=== PATIENT | female | born 1970 | race Caucasian/White ===

== ENCOUNTER 2023-05-19 15:21 | Emergency (ER) | payer OTHER, SELFPAY ==
--- NOTE | 2023-05-19 15:31 | ED.EYEPROB ---
HPI - Eye Problem General Chief complaint: Urogenital-Female Stated complaint: ear/bladder pain Source: patient, RN notes reviewed and old records reviewed Mode of arrival: ambulatory Limitations: no limitations History of Present Illness HPI Narrative: 52 year old female who presesnt Related Data Home Medications Medication Instructions Recorded Confirmed atorvastatin 80 mg tablet mg 05/19/23 dulaglutide 1.5 mg/0.5 mL mg subcut 05/19/23 subcutaneous pen injector (Trulicity) empagliflozin 25 mg tablet mg 05/19/23 05/19/23 (Jardiance) isosorbide mononitrate 120 mg mg PO 05/19/23 tablet,extended release 24 hr losartan 25 mg tablet mg 05/19/23 metoprolol succinate 50 mg mg PO 05/19/23 tablet,extended release 24 hr oxybutynin chloride 10 mg mg PO 05/19/23 tablet,extended release 24 hr ranolazine 500 mg tablet,extended mg PO 05/19/23 05/19/23 release,12 hr ticagrelor 90 mg tablet (Brilinta) mg 05/19/23 Allergies Allergy/AdvReac Type Severity Reaction Status Date / Time bee venom protein (honey bee) Allergy Intermediate Rash Verified 05/19/23 15:29 Penicillins Allergy Unknown Rash Verified 05/19/23 15:29 all diabetic meds AdvReac Intermediate Other Uncoded 05/19/23 15:29 Review of Systems Review of Systems: CONSTITUTIONAL: Denies fever, chills, or sweats. CARDIOVASCULAR: Denies chest pain, palpitations, or edema. RESPIRATORY: Denies cough or dyspnea. GASTROINTESTINAL: Denies abdominal pain, nausea, vomiting, or diarrhea. GENITOURINARY: Reports dysuria, frequency, urgency. Denies flank pain or hematuria. SKIN: Denies rash or itching. MUSCULOSKELETAL: Denies back pain or myalgia. Denies CVA tenderness NEUROLOGIC: Denies headache All systems reviewed & are unremarkable except as noted in HPI and below PMFSH Comments At time of signature, agree with nursing past medical, surgical, social and family history. There is no relevant family history pertinent to the presenting complaint Exam Narrative: GENERAL: Well-appearing, well-nourished, and in no acute distress. HEAD: Normocephalic, atraumatic. NECK: Supple. CHEST: Clear to auscultation. No respiratory distress. HEART: Regular rate and rhythm. No murmur heard. Normal peripheral pulses. ABDOMEN: Soft, nontender, nondistended, normal active bowel sounds. No CVA tenderness EXTREMITIES: Normal range of motion. No edema. SKIN: Warm, dry, no rash. NEURO: No focal deficits. Alert and oriented x3. Course Course Emergency Course: Patient is aware of diagnosis, understands and agrees to treatment plan.? Anticipatory guidance given.? Patient agrees to follow-up as directed and is aware of reasons to seek care at the emergency department. Portions of this record may have been created with voice recognition software Level of Care: Express Care Visit MDM - Eye Problem Lab Data Attestation: I reviewed the patient's lab results. Discharge Plan Discharge Prescriptions: No Action atorvastatin 80 mg tablet oxybutynin chloride 10 mg tablet extended release 24hr PO metoprolol succinate 50 mg tablet extended release 24 hr PO isosorbide mononitrate 120 mg tablet extended release 24 hr PO losartan 25 mg tablet ranolazine 500 mg tablet extended release 12 hr PO Brilinta 90 mg tablet Trulicity 1.5 mg/0.5 mL pen injector SUBCUT Follow-up/Referrals: PHYSICIAN NOT ON STAFF,NONSTAFF [Primary Care Provider] -
[2023-05-19 15:33] VITALS: BP 146/87; PULSE 81; RESP 16; TEMP 36.8; O2SAT 97
--- NOTE | 2023-05-19 15:43 | PC.NURSE ---
in br to obtain ua spec.
--- NOTE | 2023-05-19 15:56 | ED.FEMALEGU ---
HPI - Female Genitourinary General Chief complaint: Urogenital-Female Stated complaint: ear/bladder pain Time Seen by Provider: 05/19/23 15:40 Source: patient, RN notes reviewed and old records reviewed Mode of arrival: ambulatory Limitations: no limitations History of Present Illness HPI Narrative: 52 year old female who presents to [facility] care with complaints of 2 week duration of some right ear pain with some bloody drainage noted from ear at times. Patient also verbalizes lower back pain and some lower abdominal cramping, urinary frequency with some odor noted to her urine. Patient reports past history of previous UTI's. Patient denies any fever, no nausea or vomiting or diarrhea denies any vaginal discharge or itching. MD elicited complaint: UTI and other (right ear pain) Pertinent past history: diabetes and other (UTI's) Onset (ago): week(s) (2 weeks ear and 2 days urinary tract symptoms) Location of symptoms: suprapubic and low back Severity scale (1-10): 6 Vaginal discharge: none Treatment prior to arrival: other (tylenol) Related Data Home Medications Medication Instructions Recorded Confirmed atorvastatin 80 mg tablet mg 05/19/23 dulaglutide 1.5 mg/0.5 mL mg subcut 05/19/23 subcutaneous pen injector (Trulicity) empagliflozin 25 mg tablet mg 05/19/23 05/19/23 (Jardiance) isosorbide mononitrate 120 mg mg PO 05/19/23 tablet,extended release 24 hr losartan 25 mg tablet mg 05/19/23 metoprolol succinate 50 mg mg PO 05/19/23 tablet,extended release 24 hr oxybutynin chloride 10 mg mg PO 05/19/23 tablet,extended release 24 hr ranolazine 500 mg tablet,extended mg PO 05/19/23 05/19/23 release,12 hr ticagrelor 90 mg tablet (Brilinta) mg 05/19/23 Allergies Allergy/AdvReac Type Severity Reaction Status Date / Time bee venom protein (honey bee) Allergy Intermediate Rash Verified 05/19/23 15:29 Penicillins Allergy Unknown Rash Verified 05/19/23 15:29 all diabetic meds AdvReac Intermediate Other Uncoded 05/19/23 15:29 Review of Systems Review of Systems: CONSTITUTIONAL: Denies fever, chills, or sweats. CARDIOVASCULAR: Denies chest pain, palpitations, or edema. RESPIRATORY: Denies cough or dyspnea.positive for right ear pain with some bloody drainage GASTROINTESTINAL: REports lower abdominal cramping, no nausea, vomiting, or diarrhea. GENITOURINARY: Reports dysuria, frequency, urgency. Denies flank pain or hematuria. reports low back pain SKIN: Denies rash or itching. MUSCULOSKELETAL: Reports low back pain or myalgia. Denies CVA tenderness NEUROLOGIC: Denies headache All systems reviewed & are unremarkable except as noted in HPI and below PMFSH Past Medical History Medical History (Updated 05/20/23 @ 12:16 by Bhakti Lora NP) Arthritis Brain cancer Breast cancer Diabetes Elevated cholesterol Hypertension Urinary tract infection Surgical History Surgical History (Updated 05/20/23 @ 12:17 by Bhakti Lora NP) H/O: hysterectomy Social History Social History (Updated 05/20/23 @ 12:17 by Bhakti Lora NP) Smoking status: Never smoker Alcohol intake: current Alcohol use details: rare Substance use type: does not use Living arrangements: with family Gender identity (if verbalized by the patient): Female Comments At time of signature, agree with nursing past medical, surgical, social and family history. There is no relevant family history pertinent to the presenting complaint Exam Narrative: GENERAL: Well-appearing, well-nourished, and in no acute distress. HEAD: Normocephalic, atraumatic. NECK: Supple.no lymphadenopathy right ear canal red and excoriated with dried blood noted.TM normal CHEST: Clear to auscultation. No respiratory distress.SAO2 97% on room air HEART: Regular rate and rhythm. No murmur heard. Normal peripheral pulses. ABDOMEN: Soft, tender lower abdomen,, nondistended, normal active bowel sounds. No CVA tenderness low back pain v
== END 2023-05-19 16:09 | disposition home or self-care (01) ==
PROVIDERS: Emergency Provider Registered Nurse
DX: N39.0 Urinary tract infection, site not specified (principal); B96.20 Unspecified Escherichia coli [E. coli] as the cause of diseases classified elsewhere; H60.391 Other infective otitis externa, right ear; M19.90 Unspecified osteoarthritis, unspecified site; E11.9 Type 2 diabetes mellitus without complications; I10 Essential (primary) hypertension; Z85.3 Personal history of malignant neoplasm of breast; Z85.841 Personal history of malignant neoplasm of brain
CPT/HCPCS: 81003; 87077; 87086; 87186; 99203; G0463

== ENCOUNTER 2024-03-29 11:57 | Emergency (ER) | payer OTHER, SELFPAY ==
--- NOTE | ~2024-03-29 | XR_ITS ---
EXAMINATION: XR chest 2V DATE: 03/29/2024 13:10 INDICATION: Cough and fatigue TECHNIQUE: PA and lateral views of the chest were obtained. COMPARISON: None FINDINGS: The lungs are clear with no focal airspace opacities, pulmonary edema, pleural effusion or pneumothor ax. The cardiomediastinal silhouette is normal. Cholecystectomy clips in the upper abdomen. There are bridging osteophytes at multiple levels consistent with diffuse idiopathic skeletal hyperostosis (DI SH). IMPRESSION: 1. No acute cardiopulmonary disease. Reviewed, dictated and finalized at location B. TECHNICIAN
[2024-03-29 12:03] VITALS: BP 141/90; PULSE 80; RESP 16; TEMP 36.9; O2SAT 98
--- NOTE | 2024-03-29 12:55 | ED_ITS ---
HPI - URI/Sore Throat General Chief Complaint: Upper Respiratory Infection Stated Complaint: Fatigue/Cough/Sore Throat/Chest Tightness Source: patient Mode of arrival: ambulatory Limitations: no limitations History of Present Illness HPI Narrative: 53-year-old female presented for complaint of cough, fatigue, and shortness of breath for 3 days. His cough is dry and chest feels tight. She denies wheezing, nausea, vomiting, diarrhea, fevers or lethargy. Taking [id number] cough medicine without relief. Related Data Home Medications ?Medication ?Instructions ?Recorded ?Confirmed ?Last Taken ?Type atorvastatin 80 mg tablet mg 05/19/23 Unknown History dulaglutide 1.5 mg/0.5 mL mg subcut 05/19/23 Unknown History subcutaneous pen injector (Trulicity) empagliflozin 25 mg tablet mg 05/19/23 05/19/23 Unknown History (Jardiance) isosorbide mononitrate 120 mg mg PO 05/19/23 Unknown History tablet,extended release 24 hr losartan 25 mg tablet mg 05/19/23 Unknown History metoprolol succinate 50 mg mg PO 05/19/23 Unknown History tablet,extended release 24 hr oxybutynin chloride 10 mg mg PO 05/19/23 Unknown History tablet,extended release 24 hr ranolazine 500 mg tablet,extended mg PO 05/19/23 05/19/23 Unknown History release,12 hr ticagrelor 90 mg tablet (Brilinta) mg 05/19/23 Unknown History Allergies Allergy/AdvReac Type Severity Reaction Status Date / Time bee venom protein (honey bee) Allergy Intermediate Rash Verified 05/19/23 15:29 Penicillins Allergy Unknown Rash Verified 05/19/23 15:29 all diabetic meds AdvReac Intermediate Other Uncoded 05/19/23 15:29 Review of Systems Review of Systems: CONSTITUTIONAL: Denies body aches, fever, chills, or sweats. EYES: Denies visual changes, redness, or discharge. ENT: Denies rhinorrhea, congestion, sore throat, or otalgia. CARDIOVASCULAR: Denies chest pain, palpitations, or edema. RESPIRATORY: Reports cough, denies sob, wheezing. GASTROINTESTINAL: Denies abdominal pain, nausea, vomiting, or diarrhea. MUSCULOSKELETAL: Denies back pain, joint pain, or myalgia. NEUROLOGIC: Denies headache, numbness, tingling, or weakness. All systems reviewed & are unremarkable except as noted in HPI and below PMFSH Past Medical History Medical History Diabetes Arthritis Breast cancer Brain cancer Elevated cholesterol Hypertension Urinary tract infection Surgical History Surgical History H/O: hysterectomy Social History Social History Smoking status: Never smoker Alcohol intake: current Alcohol use details: rare Substance use type: does not use Living arrangements: with family Gender identity (if verbalized by the patient): Female Comments At time of signature, I have reviewed and agree with nursing past medical, surgical, social and family history unless otherwise noted. Please see nursing chart for further information. There is no relevant family history pertinent to the presenting complaint Exam Narrative: GENERAL: Well-appearing, in no acute distress. EYES: EOMI. No redness or drainage. Conjunctivae normal. ENT: Mucous membranes pink and moist. No rhinorrhea. TMs normal bilaterally. Throat normal. Uvula midline. NECK: Normal AROM. Supple. CHEST: No respiratory distress. lungs clear to all milton. HEART: Regular rate and rhythm. No murmur appreciated. ABDOMEN: Soft, nontender, nondistended, normal active bowel sounds. EXTREMITIES: Normal range of motion. No edema. SKIN: Warm, dry, no rash. Capillary refill normal. Normal skin turgor. NEURO: Alert and oriented x3. Gait steady. PSYCH: Normal affect. Course Course Emergency Course: Patient is aware of diagnosis, understands and agrees to treatment plan. Anticipatory guidance given. Patient agrees to follow-up as directed and is aware of reasons to seek care at the emergency department. Portions of this record may have been created with voice recognition software Level of Care: Express Care Visit Vital Signs Vital signs: Vital Signs Temperature 98.5 F 03/29/24 12:03 Pulse Rate 80 03/29/24 12:03 Respiratory Rate 16 03/29/24 12:03 Blood Pressure 141/90 H 03/29/24 12:03 Pulse Oximetry 98 03/29/24 12:03 Oxygen Delivery Room Air 03/29/24 12:03 Temperature 98.5 F 03/29/24 12:03 Pulse Rate 80 03/29/24 12:03 Respiratory Rate 16 03/29/24 12:03 Blood Pressure 141/90 H 03/29/24 12:03 Pulse Oximetry 98 03/29/24 12:03 Oxygen Delivery Room Air 03/29/24 12:03 MDM - URI/Sore Throat MDM Narrative Medical decision making narrative: Negative flu and COVID, chest x-ray reviewed with patient. Discussed physical exam findings. Advised supportive measures and signs/symptoms to go to the ER. Pt is appropriate for outpt treatment and f/u. Differential Diagnosis Differential diagnosis: Likely upper respiratory infection, sinusitis, viral infection, influenza and pharyngitis Lab Data Labs: Lab Results 03/29/24 Range/Units 13:01 POC Influenza A Ag Negative (Negative) POC Influenza B Ag Negative (Negative) POC SARS CoV-2 Ag Negative (Negative) Imaging Data Radiologist's impression: Patient: Brett Faustin : 1970 MR#: [id number] Age: 53 Acct:[id number] Loc: [facility] ADM Date: 03/29/24Attending Dr: Ordering Physician: Dafne Marcelo APRN Date of Service: 03/29/24 Procedure(s): XR chest 2V Accession Number(s): [id number] cc: Dafne Marcelo APRN~ EXAMINATION: XR chest 2V DATE: 03/29/2024 13:10 INDICATION: Cough and fatigue TECHNIQUE: PA and lateral views of the chest were obtained. COMPARISON: None FINDINGS: The lungs are clear with no focal airspace opacities, pulmonary edema, pleural effusion or pneumothorax. The cardiomediastinal silhouette is normal. Cholecyst ectomy clips in the upper abdomen. There are bridging osteophytes at multiple levels consistent with diffuse idiopathic skeletal hyperostosis (DISH). IMPRESSION: 1. No acute cardiopulmonary disease. Discharge Plan Discharge Clinical Impression: Bronchitis Patient Disposition: Home, Self-Care Condition: Stable Instructions: Acute Bronchitis (ED) Additional Instructions: flu and COVID negative. Acute bronchitis can be contagious because it is usually caused by infection with a virus or bacteria. It is usually for a few days but you can be contagious for up to one week. Avoid crowds until you do not have a fever and symptoms are improved Take medication as directed Recommend Flonase spray and Zyrtec (or Claritin/Tayla) over the counter Cough syrup may cause drowsiness; avoid driving or take it at night time. Tylenol 1000mg every 8 hours as needed for pain Symptomatic treatment includes: rest, fluids, and increase humidity of the air at home. Follow up with your primary care provider next week Go to the ER for worsening symptoms or concerns Patient Language: Armenian Prescriptions: New prednisone 20 mg tablet 40 mg PO DAILY 4 Days Qty: 8 0RF albuterol sulfate 90 mcg/actuation HFA aerosol inhaler 2 inh inhalation QID PRN (Reason: shortness of breath or wheezing) Qty: 8.5 0RF No Action atorvastatin 80 mg tablet oxybutynin chloride 10 mg tablet extended release 24hr PO metoprolol succinate 50 mg tablet extended release 24 hr PO isosorbide mononitrate 120 mg tablet extended release 24 hr PO losartan 25 mg tablet ranolazine 500 mg tablet extended release 12 hr PO Brilinta 90 mg tablet Trulicity 1.5 mg/0.5 mL pen injector SUBCUT Jardiance 25 mg tablet Patient Comments: stated is not currently taking dt unable to afford cost. ofloxacin 0.3 % drops 5 drp RIGHT EAR BID 7 Days Qty: 10 0RF Follow-up/Referrals: PHYSICIAN NOT ON STAFF,NONSTAFF [Primary Care Provider] - Stand Alone Forms: Work/School Release IP Time of Disposition: 13:23
[2024-03-29 13:03] LABS: EDCOVIDSCREEN Negative (Negative); EDINFLUASCREEN Negative (Negative); EDINFLUBSCREEN Negative (Negative)
== END 2024-03-29 13:29 | disposition home or self-care (01) ==
PROVIDERS: Emergency Provider Nurse Practitioner Family
DX: J40 Bronchitis, not specified as acute or chronic (principal); Z20.822 Contact with and (suspected) exposure to COVID-19; E11.9 Type 2 diabetes mellitus without complications; I10 Essential (primary) hypertension; E78.00 Pure hypercholesterolemia, unspecified; M19.90 Unspecified osteoarthritis, unspecified site; Z85.3 Personal history of malignant neoplasm of breast; Z85.841 Personal history of malignant neoplasm of brain
CPT/HCPCS: 71046; 87426; 87804; 99213; G0463

== ENCOUNTER 2024-10-09 14:31 | Emergency (ER) | payer OTHER, SELFPAY ==
[2024-10-09 14:33] VITALS: BP 149/94; PULSE 82; RESP 18; TEMP 36.8; O2SAT 97
--- OUTSIDE RECORDS SUMMARY | 2024-10-09 14:38 | XMS_ITS | Referral Summary ---
Author Organization [facility] Address [address] [place] [address] Care Team Providers Care Non Destructive Testing Specialist Name Role Phone Melo Das DO Unavailable [phone] Spencer Cabrera MD Primary Care Provider + Allergies Active Allergy Reactions Criticality Noted Date Comments Bee Venom Protein (Honey Bee) Anaphylaxis High Glipizide-Metformin Nausea & Vomiting Low 8 Insulin Regular Other (See comments) Low 07/02/2015 Synthetic insulin. Throwing up and light headed. Synthetic insulin. Throwing up and light headed. Insulins Other (See comments) High hyperglycemia Enoxaparin Itching Low 03/05/2021 Metformin Nausea & Vomiting Low 11/10/2017 Procaine Anaphylaxis,Other (S ee comments) High 05/03/2009 Cardiac arrest stop breathing and turn blue Medications aspirin 81 mg chewable tablet TAKE ONE TABLET BY MOUTH AT BREAKFAST 0 8 Active empagliflozin (JARDIANCE) 25 mg tabletIndication s:type 2 diabetes mellitus 1 tablet (25 mg total) daily Active gus root (GUS, ZINGIBER OFFICINALIS,) 550 mg capsule Take by mouth 2 (two) times a day Active dulaglutide (TRULICITY) 1.5 mg/0.5 mL pen injector Inject 0.5 mL (1.5 mg total) under the skin every 7 days Monday Active vitamin B biha-J-EF-copper -zinc 5-1.5-25 mg tablet Take 1 tablet by mouth daily Active cyanocobalamin (Vitamin B-12) 1,000 mcg tabletIndication s:Prevention of Vitamin B12 Deficiency Take 1 tablet (1,000 mcg total) by mouth daily Active HYDROcodone-acet aminophen (NORCO) 5-325 mg per tabletIndication s:Pain Take 1 tablet by mouth every 6 (six) hours as needed for pain for up to 5 doses 5 tablet 2 Active oxyBUTYnin XL (DITROPAN-XL) 10 mg 24 hr tablet Take 1 tablet (10 mg total) by mouth daily Active atorvastatin (LIPITOR) 80 mg tabletIndication s:myocardial infarction prevention Take 1 tablet (80 mg total) by mouth nightly 30 tablet 11 3 Active metoprolol XL (TOPROL-XL) 50 mg extended release tablet Take 1 tablet (50 mg total) by mouth daily 30 tablet 11 3 Active ticagrelor (BRILINTA) 90 mg tabletIndication s:cardiovascular disease Take 1 tablet (90 mg total) by mouth 2 (two) times a day 180 tablet 1 3 Active isosorbide mononitrate ER (IMDUR) 60 mg 24 hr tablet Take 1 tablet (60 mg total) by mouth daily 30 tablet 1 3 Active amLODIPine (NORVASC) 2.5 mg tablet Take 1 tablet (2.5 mg total) by mouth daily 30 tablet 1 3 Active clobetasoL (TEMOVATE) 0.05 % cream Apply topically 2 (two) times a day To leg 60 g 1 4 Active gabapentin (NEURONTIN) 300 mg capsule Take 1 capsule (300 mg total) by mouth 3 (three) times a day 5 Active progesterone (PROMETRIUM) 100 mg capsule Take 1 capsule (100 mg total) by mouth daily 5 Active Active Problems Problem Noted Date Diagnosed Date Chest pain, unspecified type 12/21/2022 CAD (coronary artery disease) 11/24/2022 Obesity (BMI 30-39.9) 03/05/2021 Chest pain 03/04/2021 Assessment & Plan (03/05/2021 12:42 AM MORTGAGE LOAN OFFICER ORIGINATOR): Exact etiology unclear. Appears to be exertional but also seems to be worsened with deep breathing with a certain amount of reproducibility with palpation. Cardiology is following. Stress test was negative. Echo showed normal EF. Will consider CT of the chest if cardiac workup is negative. Exhaustion 03/02/2021 Assessment & Plan (03/02/2021 1:02 PM MORTGAGE LOAN OFFICER ORIGINATOR): Patient's exhaustion is difficult at this point to identify a clear etiology to. With her known history of significant atherosclerotic disease and prior LV dysfunction I plan to further investigate this with echocardiography and Cardiolite treadmill stress testing. We will also obtain proBNP value. We will see her in follow-up to discuss those results and establish any alteration to her current care at that time. Preop cardiovascular exam 01/02/2020 Overview (01/02/2020): Should the patient require any urological procedure, surgery or the need for general anesthesia she should be at no increased cardiovascular risk. Hematuria 12/29/2019 Glucosuria 12/29/2019 Acute bilateral low back pain without sciatica 0 12/29/2019 Mixed hyperlipidemia 05/17/2019 Assessment & Plan (01/02/2020 9:02 AM CDT): Patient's lipids were under good control with an LDL in the 60s however I would continue to encourage weight loss to help with her metabolic syndrome. Stroke (cerebrum) 04/17/2019 Coronary artery disease invo lving [place] coronary artery of [place] heart without angina pectoris 06/14/2018 Overview (06/15/2018): Added automatically from request for surgery [id number] Assessment & Plan (03/05/2021 12:39 AM MORTGAGE LOAN OFFICER ORIGINATOR): Continue aspirin, statin, Imdur and Arb. Type 2 diabetes mellitus wit h hyperglycemia, without long-term current use of insulin 06/13/2018 Assessment & Plan (03/05/2021 12:39 AM MORTGAGE LOAN OFFICER ORIGINATOR): Patient reportedly allergic to insulin. She is on Jardiance at home which has been resumed. Patient is also on Trulicity weekly which is non formulary. She states she does not adhere to a diabetic diet at home. Sugars are controlled. Assessment & Plan (06/16/2018 5:34 PM CDT): Dx>10 years ago. Her HbA1C (01/2018) was 7.9%, and this month (06/2018) 10.8%. She is not on any oral antidiabetic medication or insulin at home, as she states she develops abdominal pain and nausea from all of them She denies history of recurrent UTIs BG while hospitalized: 250-350 mg/dl. No DKA. Patient does not want to start on insulin despite that insulin is out first recommendation. In this scenario, we recommend starting on SGLT-2 inh, that will work on her as well in regards of her diastolic CHF. Side effects as UTI was discussed w the patient. Recommendation: - Jardiance (empaglifozin) 10 mg qd. - Fup w PCP, as jardiance dose can be titrate up. - HbA1c in 3 months. Assessment & Plan (06/17/2018 9:10 AM CDT): Patient reports allergic reaction (nausea/vomiting, headache, sensation of skin crawling) to short-acting and long-acting insulin, as well as some oral antihyperglycemics. Last A1c greater than 10%. Patient states diabetes previously well controlled for many years with diet and exercise alone. Talking to her yesterday, uncertain whether she actually saw an library serials assistant regarding this. Diabetes endo team to talk to her today, low suspicion she has true insulin allergy. - Endocrine consulted, patient unwilling to try insulin. Empagliflozin started and tolerated well. Will discharge on empagliflozin with plans for PCP follow up and repeat HbA1c in 3 months. - low carb diet Assessment & Plan (06/13/2018 3:43 AM CDT): On will ED workup patient noted to have severely elevated blood sugars. Patient states that her blood sugars are well controlled with diet and exercise . She claims that had been checking her blood sugars 3 times a day which were running around 130-140 range Today Hemoglobin A1c more than 10. Patient received 1 dose of her subcutaneous insulin, states that developed severe itching and nausea, states that vomited as well. Patient currently refusing insulin. She states that in the past did not do well with any oral hypoglycemics as well and refusing oral hypoglycemics. is at bedside and states that according to glucometer readings at home her blood sugars in the id are ranging around 130-140 range. I had lengthy discussion regarding the will use of hemoglobin A1c, explained that it is reflecting an average volume over the last 3 months. Which in her case corresponding to the daily blood sugars around 350 range. I also explained complications associated with longstanding hyperglycemia include DKA, coma, , increased risk for cardiac events, strokes, CKD, retinopathy, etc I asked the to bring a glucometer to the hospital for comparison with in-hospital test values. The patient and the verbalized understanding. Chronic systolic congestive heart failure 2018 Assessment & Plan (03/05/2021 12:40 AM MORTGAGE LOAN OFFICER ORIGINATOR): Echo shows normal EF with grade 1 diastolic dysfunction. Continue Entresto Assessment & Plan (06/13/2018 4:06 AM CDT): Patient with history of chronic systolic Congestive heart failure. Based on the cardiac catheterization results from 2018: CONCLUSION 1. One-vessel coronary artery disease in his right dominant system with eccentric 75% mid LAD stenosis after a very large diagonal branch. 2. No mitral regurgitation. 3. Severely diminished global LV systolic function with an ejection fraction of 25% to 30%. Currently patient clinically not fluid overloaded. Continue with carvedilol, entresto, spironolactone and Lasix. Hypertension 06/13/2018 Overview (06/13/2018): Will continue cardiac pertinent home medications. Assessment & Plan (03/05/2021 12:40 AM MORTGAGE LOAN OFFICER ORIGINATOR): Continue home medications with hold parameters Assessment & Plan (06/15/2018 2:39 AM CDT): Previous home regimen: Spironolactone 25, Coreg 25 BID, Entresto 24-26, Lasix 20 daily - management as above Assessment & Plan (06/13/2018 3:30 AM CDT): Patient received a dose of nitroglycerin. The chest pain still present. Currently on heparin drip. Continue with heparin monitoring engineer Continue cardiac pertinent home medications Status post insertion of fernando g-eluting stent into left anterior descending (LAD) artery for coronary artery disease Assessment & Plan (01/02/2020 9:01 AM CDT): Presently the patient remains free of any symptoms to suggest angina or heart failure. She has been on her Brilinta over 18 months for her LAD stent and in light of her hematuria could discontinue this but probably does not need to restart this. Assessment & Plan (06/16/2018 9:47 AM CDT): S/p EDEN x1 to mid-LAD in 11/2017 at [facility]. - continue ASA, Brilinta, Crestor - management of chest pain as above Assessment & Plan (06/13/2018 3:33 AM CDT): History of coronary artery disease status post stents in 2018. Currently on heparin drip. Continue Brilinta, carvedilol, entresto Telemetry monitoring Cardiology consult Hyperglycemia Resolved Problems Problem Noted Date Diagnosed Date Resolved Date Diastolic congestive heart failure 06/15/2018 05/17/2019 Assessment & Plan (06/16/2018 5:29 PM CDT): Jardiance (SGLT-2 inh) has shown decrease rate in CHF readmissions and hospitalization. Assessment & Plan (06/17/2018 10:06 AM CDT): CHF with recovered EF. TTE at OSH 06/13/18: LVEF 50-60% (reportedly had EF 20-30% last fall), grade I diastolic function, mild concentric LVH, no focal WMA. Euvolemic on exam. - NTproBNP on admission here negative - continue ASA, Brilinta, Crestor - continue Coreg, Entresto, amlodipine, Imdur - hold spironolactone, Lasix in setting of soft blood pressure. Given recovered EF, spironolactone no longer indicated. Pyuria 06/13/2018 06/17/2018 Overview (06/13/2018): Assessment & Plan (06/15/2018 2:40 AM CDT): OSH UA with 3+ glucose, >50 WBCs, trace leuk esterase, 1+ bacteria, 1-5 squames and 1-5 hyaline casts. Started on Zosyn for presumed cystitis. Urine culture finalized as clinically insignificant growth. Patient denies urinary symptoms, afebrile, normal WBC count. - defer further antibiotics Assessment & Plan (06/13/2018 4:08 AM CDT): Patient started on Zosyn Urine cultures are pending, will follow with culture results Chest pain 05/17/2019 Assessment & Plan (06/16/2018 9:47 AM CDT): Troponin T negative x3 at OSH, EKG without ST changes. History most consistent with stable angina. - troponin and NTproBNP negative on admission here - s/p LHC on 06/15 showing moderate disease of 2nd diagonal off LAD however IFR negative - needs risk factor modification (diabetes control to reduce microvascular complications) - continue ASA, Brilinta, Crestor - continue Entresto, amlodipine, Imdur, Coreg and up titrate as tolerated - patient unable to afford ranolazine in the past Assessment & Plan (06/13/2018 3:26 AM CDT): Patient states that the chest pain is similar to 1 when she had her cardiac stents placed. Initial troponins were negative. EKG was negative for STEMI. Patient was started on heparin drip, cardiology consulted Continue with carvedilol spironolactone, ARB. Continue with aspirin 81 mg daily Will keep the patient NPO after midnight Cardiology consult in a.m. For possible repeat cardiac catheterization. Versus cardiac stress test. Continue with nitroglycerin as needed for chest pain. Telemetry monitoring Will trend troponins Monitor kidney function with daily BMP, replete electrolytes as needed. Unstable angina 05/17/2019 Assessment & Plan (06/13/2018 3:53 AM CDT): Coronary artery disease invo lving [place] coronary artery of [place] heart 05/17/19 Social History Tobacco Use Types Packs/Day Years Used Date Smoking Tobacco: Former Cigarettes Q uit: 11/10/1987 Smokeless Tobacco: Never Alcohol Use Standard Drinks/Week Comments Not Currently 0 (1 standard drink = 0.6 oz pur e alcohol) monthly Social Connection and Isolat ion Panel [NHANES] Answer Date Recorded In a typical week, how many times do you talk on the phone with family, friends, or neighbors? More than three times a week 11/24/2022 How often do you get togethe r with friends or relatives? More than three times a week 11/24/2022 How often do you attend chur ch or jehovah's witness services? Never 11/24/2022 Do you belong to any clubs o r organizations such as rastafarian groups, unions, fraternal or athletic groups, or school groups? No 11/24/2022 How often do you attend meet ings of the clubs or organizations you belong to? Never 11/24/2022 Are you , , di vorced, , never , or living with a partner? 11/24/2022 AUDIT-C Answer Date Recorded Frequency of Alcohol Consumption Monthly or less 04/17/2019 Average Number of Drinks Not on file 020 Frequency of Binge Drinking Not on file 04/03 Overall Financial Resource Strain (CARDIA) Answe r Date Recorded How hard is it for you to pa y for the very basics like food, housing, medical care, and heating? Not hard at all 11/24/2022 PHQ-2 Answer Date Recorded PHQ-2 Score 0 11/21/2018 Hunger Vital Sign Answer Date Recorded Within the past 12 months, y ou worried that your food would run out before you got the money to buy more. Never true 11/25/19 23 Within the past 12 months, t he food you bought just didn't last and you didn't have money to get more. Never true 11/24/2022 PRAPARE - Transportation Answer Date Re corded In the past 12 months, has l ack of transportation kept you from medical appointments or from getting medications? No 11/02 In the past 12 months, has l ack of transportation kept you from meetings, work, or from getting things needed for daily living? No 11/24/2022 Housing Stability Vital Sign Answer Chong e Recorded In the last 12 months, was t here a time when you were not able to pay the mortgage or rent on time? No 11/24/2022 In the last 12 months, how many places have you lived? 1 11/24/2022 In the last 12 months, was t here a time when you did not have a steady place to sleep or slept in a senior care (including now)? No 11/24/2022 Personal Safety Answer Date Recorded Have you ever been in or are you currently in a harmful physical or emotional relationship or is someone making you feel afraid or unsafe? 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 on file Not on file Not on fi le Last Filed Vital Signs Vital Sign Reading Time Taken Comments Blood Pressure 122/60 12/22/2022 11:12 AM CDT Pulse 71 12/22/2022 11:12 AM CDT Temperature 36.4 C (97.6 F) 12/22/2022 11:12 AM CDT Respiratory Rate 18 12/22/2022 11:12 AM CDT Oxygen Saturation 98% 12/22/2022 11:12 AM CDT Inhaled Oxygen Concentration - - Weight 94.4 kg (208 lb 1.8 oz) 12/21/2022 7:16 A M CDT Height 160 cm (5' 3) 12/21/2022 7:16 AM CDT Body Mass Index 36.87 12/21/2022 7:16 AM CDT Plan of Treatment Not on file Medical Devices Implanted Type Area Fitting Room Inspector Device Identifier Shelf Expiration Date Model / Serial / Lot Closet Couture Angio-Seal Vip 6fr Closere Device [id number] - [id number] Implanted:Qty : 1 on 11/24/2022 by Ameya Swann MD at [facility] Right: Common Femoral Artery PV Nano Cell Candido [id number] / / PANTA Systemstronic Card Vasc Surgery 2.50 X 08mm [place] Rx Coronary Stent [id number] - [id number] Implanted:Qty : 1 on 11/24/2022 by Ameya Swann MD at [facility] Stent Left: Anterior Descending Cornary Artery Medtronic Card Vasc Surgery 05/03/2025 [id number] / / [id number] [employer] [id number] Xience Alpine 3.5mm 18mm 145cm Rapid Exchange Radiopaque 1 Access - [id number] Implanted:Qty : 1 on 11/10/2017 by Lauri Ball MD at [facility] [employer] 05/23/2020 [id number] Procedures Procedure Name Priority Date/Time Associated Diagnosis Comments EGFR STAT 12/21/2022 4:03 AM CDT HEMOGLOBIN A1C Routine 11/25/2022 3:19 AM CDT LIPID PANEL Routine 11/24/2022 9:39 AM CDT from Last 3 Months or Most Recently Relevant to Health Maintenance Results * eGFR (12/21/2022 4:03 AM CDT) eGFR 91 mL/min/1. 73 m2 [facility] ([place]) Comment: Interpretive Data Reference Interval Normal >/= 90 mL/min/1.73m2 Mildly decreased* 60 - 89 mL/min/1.73m2 Mildly to moderately decreased 45 - 59 mL/min/1.73m2 Moderately to severely decreased 30 - 44 mL/min/1.73m2 Severely decreased 15 - 29 mL/min/1.73m2 Kidney Failure < 15 mL/min/1.73m2 *Relative to young adult level Estimated glomerular filtration rate is determined by the 2020 CKD-EPI equation recommended by the National Kidney Foundation (A Unifying Approach to GFR Estimation: Recommendations of the NKF-ASK Task Force on Reassessing the Inclusion of Race in Diagnosing Kidney Disease, JASN 2020). The CKD-EPI equation should not be used for patients with unstable renal function and has not been validated in children and those over 70. Current interpretive data was last reviewed 2021. Blood 12/21/2022 4:03 AM CDT 12/21/2022 4:07 AM CDT Binta Santana MD LAB BLOOD ORDERABLES Fin al Result Performing Organization Address City/[facility] Co de Phone Number [facility] ([place]) [address] [facility] Department [place] [address] * Hemoglobin A1c (11/25/2022 3:19 AM CDT) Hgb A1C 5.2 4.0 - 5.6 % [facility] Estimated Average Glucose 103 mg/dL [facility] Comment: The ADA recommends reporting an estimated Average Glucose (eAG) with all Hemoglobin A1c results using the equation derived from a study of 507 normal and diabetic adults. Minority populations were underrepresented and children were not included. (Diabetes Care 31:0631-7894, 2008). The eAG is not equivalent to a fasting glucose. Blood 11/25/2022 3:19 AM CDT 11/25/2022 3:24 AM CDT Tc Landa MD LAB BLOOD ORDERABLES Final Result Performing Organization Address City/[facility] de Phone Number ALANA [id number] [facility] Department [place] [address] * Lipid panel (11/24/2022 9:39 AM CDT) Cholesterol 134 30 - 199 mg/dL [facility] Comment: Interpretive Data Ages < or = 19 years Acceptable: <170 mg/dL Borderline high: 170-199 mg/dL High: >or= 200 mg/dL Ages > or = 20 years Desirable: <200 mg/dL Borderline high: 200-239 mg/dL High: >or= 240 mg/dL Literature References: 1. Expert Panel on Integrated Guidelines for Cardiovascular Health and Risk Reduction in Children and Adolescents. Pediatrics 2011;128:S213 2. NCEP Expert Panel. Circulation 2004;110:227 Current Interpretive Data was last revised on 2017. Triglycerides 100 <=149 mg/dL [facility] Comment: Interpretive Data Ages < or = 9 years Acceptable: <75 mg/dL Borderline high: 75-99 mg/dL High: >or= 100 mg/dL Ages 10 to 20 years Acceptable: <90 mg/dL Borderline high: 90-129 mg/dL High: >or= 130 mg/dL Ages > or = 20 years Desirable: <150 mg/dL Borderline high: 150-199 mg/dL High: 200-499 mg/dL Very high: >or= 499 mg/dL Literature References: 1. Expert Panel on Integrated Guidelines for Cardiovascular Health and Risk Reduction in Children and Adolescents. Pediatrics 2011;128:S213 2. NCEP Expert Panel. Circulation 2004;110:227 Current Interpretive Data was last revised on 2017. HDL 48 >=40 mg/dL [facility] Comment: Interpretive Data Ages < or = 19 years Acceptable: >45 mg/dL Borderline low: 40-45 mg/dL Low: <40 mg/dL Ages > or = 20 years Desirable: >or= 60 mg/dL Low: <40 mg/dL Literature References: 1. Expert Panel on Integrated Guidelines for Cardiovascular Health and Risk Reduction in Children and Adolescents. Pediatrics 2011;128:S213 2. NCEP Expert Panel. Circulation 2004;110:227 Current Interpretive Data was last revised on 2017. LDL, calculated 66 <=129 mg/dL [facility] Comment: Interpretive Data Ages < or = 19 years Acceptable: <110 mg/dL Borderline high: 110-129 mg/dL High: >or= 130 mg/dL Ages > or = 20 years Optimal: <100 mg/dL Near optimal: 100-129 mg/dL Borderline high: 130-159 mg/dL High: >160 mg/dL Literature References: 1. Expert Panel on Integrated Guidelines for Cardiovascular Health and Risk Reduction in Children and Adolescents. Pediatrics 2011;128:S213 2. NCEP Expert Panel. Circulation 2004;110:227 Current Interpretive Data was last revised on 2017. Non-HDL Cholesterol 86 mg/dL [facility] Comment: Interpretive Data Ages < or = 19 years Acceptable: <120 mg/dL Borderline high: 120-144 mg/dL High: >145 mg/dL Ages > or = 20 years When triglycerides are >200 mg/dL, Non-HDL cholesterol is a secondary target of therapy with treatment goals that are 30 mg/dL greater than the LDL cholesterol target. Literature References: 1. Expert Panel on Integrated Guidelines for Cardiovascular Health and Risk Reduction in Children and Adolescents. Pediatrics 2011;128:S213 2. NCEP Expert Panel. Circulation 2004;110:227 Current Interpretive Data was last revised on 2017. Chol/HDL ratio 3 [facility] Blood 11/24/2022 9:39 AM CDT 11/24/2022 4:11 PM CDT us Ameya Swann MD LAB BLOOD ORDERABLES Final Resul t [facility] [address] Department of Laboratories [place] [phone] from Last 3 Months or Most Recently Relevant to Health Maintenance Insurance [facility] CHOICE PLUS [facility] CHO[facility] PLUS [facility] CHOICE PLUS Advance Directives For more information, please contact: [phone] * Full Code (Latest Code Status on File) Date Activated Date Inactivated Comments 12/21/2022 11:04 AM 12/22/2022 5:40 PM * Full Code Date Activated Date Inactivated Comments 11/24/2022 10:19 AM 11/26/2022 5:40 PM * Full Code Date Activated Date Inactivated Comments 11/24/2022 10:19 AM 11/24/2022 10:19 AM * Full Code Date Activated Date Inactivated Comments 03/04/2021 2:12 PM 03/06/2021 9:12 PM * Full Code Date Activated Date Inactivated Comments 04/17/2019 2:00 AM 04/19/2019 12:49 AM Care Teams Non Destructive Testing Specialist Relationship Specialty Start Date End Date Spencer Cabrera MD PCP - General Family Medicine 05/17/19 Melo Das DO Cardiovascular Disease 11/10/17
--- OUTSIDE RECORDS SUMMARY | 2024-10-09 14:38 | XMS_ITS | Encounter Summary ---
Author Organization [employer] Address [address] [place] [address] Care Team Providers Care Casualty Underwriter Name Role Phone Mack Camp DO Primary Care Provider Encounter Details Date Type Department Care Team (Late st Contact Info) Description 09/11/2000 [facility] [address] [place] [address] [phone] Thor Aceves DO NO ADDRESS ON FILE Social History Tobacco Use Types Packs/Day Years Used Date Smoking Tobacco: Never Assessed Comments Unknown Sex and Gender Information Value Date Recorded Sex Assigned at Not on file Legal Sex Female 3:54 AM 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
--- OUTSIDE RECORDS SUMMARY | 2024-10-09 14:38 | XMS_ITS | Encounter Summary ---
Author Organization [employer] Address [address] [place] [address] Care Team Providers Care Carpenter Railcar Name Role Phone Mack Camp DO Primary Care Provider Encounter Details Date Type Department Care Team (Late st Contact Info) Description 10/11/2000 [facility] [address] [place] [address] [phone] Thor Aceves DO NO ADDRESS ON FILE Social History Tobacco Use Types Packs/Day Years Used Date Smoking Tobacco: Never Assessed Comments Unknown Sex and Gender Information Value Date Recorded Sex Assigned at Not on file Legal Sex Female 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
--- OUTSIDE RECORDS SUMMARY | 2024-10-09 14:38 | XMS_ITS | Encounter Summary ---
Author Organization [employer] Address [address] [place] [address] Care Team Providers Care Clean Room Technician Name Role Phone Mack Camp DO Primary Care Provider Encounter Details Date Type Department Care Team (Late st Contact Info) Description 09/27/2000 [facility] [address] [place] [address] [phone] Thor Aceves DO NO ADDRESS ON FILE Social History Tobacco Use Types Packs/Day Years Used Date Smoking Tobacco: Never Assessed Comments Unknown Sex and Gender Information Value Date Recorded Sex Assigned at Not on file Legal Sex Female 3:54 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
--- OUTSIDE RECORDS SUMMARY | 2024-10-09 14:38 | XMS_ITS | Encounter Summary ---
Author Organization [employer] Address [address] [place] [address] Care Team Providers Care Instrument/Control Technician Name Role Phone Mack Camp DO Primary Care Provider Encounter Details Date Type Department Care Team (Late st Contact Info) Description 12/25/2000 [facility] [address] [place] [address] [phone] Thor Aceves DO NO ADDRESS ON FILE Social History Tobacco Use Types Packs/Day Years Used Date Smoking Tobacco: Never Assessed Comments Unknown Sex and Gender Information Value Date Recorded Sex Assigned at Not on file Legal Sex Female 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
--- OUTSIDE RECORDS SUMMARY | 2024-10-09 14:38 | XMS_ITS | Encounter Summary ---
Author Organization [employer] Address 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
--- OUTSIDE RECORDS SUMMARY | 2024-10-09 14:38 | XMS_ITS | Encounter Summary ---
Author Organization [employer] Address [address] [place] [address] Care Team Providers Care Filing Or Registry Clerk Name Role Phone Mack Camp DO Primary Care Provider Encounter Details Date Type Department Care Team (Late st Contact Info) Description 01/08/2001 [facility] [address] [place] [address] [phone] Thor Aceves DO NO ADDRESS ON FILE Social History Tobacco Use Types Packs/Day Years Used Date Smoking Tobacco: Never Assessed Comments Unknown Sex and Gender Information Value Date Recorded Sex Assigned at Not on file Legal Sex Female 3:54 AM SUPERVISOR 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
--- OUTSIDE RECORDS SUMMARY | 2024-10-09 14:38 | XMS_ITS | Encounter Summary ---
Author Organization [employer] Address [address] [place] [address] Care Team Providers Care Restaurant Crew Name Role Phone Mack Camp DO Primary Care Provider Encounter Details Date Type Department Care Team (Late st Contact Info) Description 03/05/2001 Outpatient [facility] Edwineast corinthswetha [facility] Medicine [address] [place] [address] [phone] Thor Aceves DO NO ADDRESS ON FILE Social History Tobacco Use Types Packs/Day Years Used Date Smoking Tobacco: Never Assessed Comments Unknown Sex and Gender Information Value Date Recorded Sex Assigned at Not on file Legal Sex Female 3:54 AM TRADE MARK 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
--- OUTSIDE RECORDS SUMMARY | 2024-10-09 14:38 | XMS_ITS | Encounter Summary ---
Author Organization [facility] Address [address] [place] [address] Care Team Providers Care Air Technician Name Role Phone Unavailable Primary Care Provider Unavailabl e Reason for Visit * Reason Onset Date Comments Surgery 11/29/2022 Encounter Details Date Type Department Care Team (Late st Contact Info) Description 11/29/2022 Telephone [facility] [id number] [id number] Paul Smith MD [address] [facility] [address] [place] [address] Surgery Social History Tobacco Use Types Packs/Day Years Used Date Smoking Tobacco: Former Cigarettes 0.5 20 0 04/21/1968 - 04/21/1988 Alcohol Use Standard Drinks/Week Comments Yes 0 (1 standard drink = 0.6 oz pur e alcohol) Once in blue rodriguez Comments No Sex and Gender Information Value Date Recorded Sex Assigned at Not on file Legal Sex Female 3:54 AM SOCIAL SERVICE DIRECTOR Gender Identity Not on file Sexual Orientation Not on file documented as of this encounter Miscellaneous Notes * Telephone Encounter - Maddy Becerra - 11/29/2022 10:26 AM CDT Yesterday Sheela from Dr. Orellana's office notified me that her nurse navigator, Monet, was notified by [facility] that the patient had a heart attack and stent placement . Berna's chart note from when patient called yesterday states that patient was told by Dr. Swann at [facility] that her surgery w/ Drs. Orellana and Luis on 12/21/22 could proceed from his standpoint and Berna had notified Brett that per Dr. Smith, the patient should discuss w/ anesthesia. Per Sheela today, Dr Orellana has advised that the patient's surgery (for brca) will need to be post-poned for 6 months. documented in this encounter Plan of Treatment Not on file documented as of this encounter Visit Diagnoses Not on filedocumented in this encounter
--- OUTSIDE RECORDS SUMMARY | 2024-10-09 14:38 | XMS_ITS | Encounter Summary ---
Author Organization [employer] Address [address] [place] [address] Care Team Providers Care Electronic Transaction Implementer Name Role Phone Mack Camp DO Primary Care Provider Encounter Details Date Type Department Care Team (Late st Contact Info) Description 01/18/[address] 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
--- OUTSIDE RECORDS SUMMARY | 2024-10-09 14:38 | XMS_ITS | Encounter Summary ---
Author Organization [employer] Address [address] [place] [address] Care Team Providers Care President Celebrity Acquistion Name Role Phone Mack Camp DO Primary Care Provider Encounter Details Date Type Department Care Team (Late st Contact Info) Description 02/01/2001 [facility]patient [facility] [address] [place] [address] [phone] Thor Aceves DO NO ADDRESS ON FILE Social History Tobacco Use Types Packs/Day Years Used Date Smoking Tobacco: Never Assessed Comments Unknown Sex and Gender Information Value Date Recorded Sex Assigned at Not on file Legal Sex Female 3:54 AM 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
--- OUTSIDE RECORDS SUMMARY | 2024-10-09 14:38 | XMS_ITS | Encounter Summary ---
Author Organization [employer] Address [address] [place] [address] Care Team Providers Care Civil Engineering Teacher Name Role Phone Mack Camp DO Primary Care Provider Encounter Details Date Type Department Care Team (Late st Contact Info) Description 08/08/2000 [facility]stony creeks[facility] [address] [place] [phone] Thor Aceves DO NO ADDRESS ON FILE Social History Tobacco Use Types Packs/Day Years Used Date Smoking Tobacco: Never Assessed Comments Unknown Sex and Gender Information Value Date Recorded Sex Assigned at Not on file Legal Sex Female 3:54 AM TOURIST ADVISER Gender Identity Not on file Sexual Orientation Not on file documented as of this encounter Plan of Treatment Not on file documented as of this encounter Visit Diagnoses Not on filedocumented in this encounter Care Teams Civil Engineering Teacher Relationship Specialty Start Date End Date Mack Camp DO [address] [place] [address] PCP - General Geriatric Medicine 07/29/16 11/27/22 documented as of this encounter
--- OUTSIDE RECORDS SUMMARY | 2024-10-09 14:38 | XMS_ITS | Encounter Summary ---
Author Organization [employer] Address [address] [place] [address] Care Team Providers Care Lime Plant Operator Name Role Phone Mack Camp DO Primary Care Provider Encounter Details Date Type Department Care Team (Late st Contact Info) Description 07/19/2000 [facility]patient [facility] Edwindanvers[facility] [address] [place] [address] [phone] Thor Aceves DO NO ADDRESS ON FILE Social History Tobacco Use Types Packs/Day Years Used Date Smoking Tobacco: Never Assessed Comments Unknown Sex and Gender Information Value Date Recorded Sex Assigned at Not on file Legal Sex Female 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
--- OUTSIDE RECORDS SUMMARY | 2024-10-09 14:38 | XMS_ITS | Encounter Summary ---
Author Organization [employer] Address [address] [place] [address] Care Team Providers Care Auto Mechanics Teacher Name Role Phone Mack Camp DO Primary Care Provider Encounter Details Date Type Department Care Team (Late st Contact Info) Description 11/21/2000 [facility] [address] [place] [address] [phone] Thor Aceves DO NO ADDRESS ON FILE Social History Tobacco Use Types Packs/Day Years Used Date Smoking Tobacco: Never Assessed Comments Unknown Sex and Gender Information Value Date Recorded Sex Assigned at Not on file Legal Sex Female 3:54 AM MICROFILM EQUIPMENT INSPECTOR Gender Identity Not on file Sexual Orientation Not on file documented as of this encounter Plan of Treatment Not on file documented as of this encounter Visit Diagnoses Not on filedocumented in this encounter Care Teams Auto Mechanics Teacher Relationship Specialty Start Date End Date Mack Camp DO [address] [place] [address] PCP - General Geriatric Medicine 07/29/16 11/27/22 documented as of this encounter
--- OUTSIDE RECORDS SUMMARY | 2024-10-09 14:38 | XMS_ITS | Encounter Summary ---
Author Organization [employer] Address [address] [place] [address] Care Team Providers Care Forest Landscape Ecology Professor Name Role Phone Mack Camp DO Primary Care Provider Encounter Details Date Type Department Care Team (Late st Contact Info) Description 10/25/[address] [facility] Ed[facility] [address] [place] [address] [phone] Thor Aceves DO NO ADDRESS ON FILE Social History Tobacco Use Types Packs/Day Years Used Date Smoking Tobacco: Never Assessed Comments Unknown Sex and Gender Information Value Date Recorded Sex Assigned at Not on file Legal Sex Female 3:54 AM NURSING SERVICES MANAGER Gender Identity Not on file Sexual Orientation Not on file documented as of this encounter Plan of Treatment Not on file documented as of this encounter Visit Diagnoses Not on filedocumented in this encounter Care Teams Forest Landscape Ecology Professor Relationship Specialty Start Date End Date Mack Camp DO [address] [place] [address] PCP - General Geriatric Medicine 07/29/16 11/27/22 documented as of this encounter
--- OUTSIDE RECORDS SUMMARY | 2024-10-09 14:39 | XMS_ITS | Clinical Summary ---
Author Organization [facility] Address [address] [place] [address] Care Team Providers Care Drafter Cartographic Name Role Phone Spencer Cabrera Primary Care Provider Unavailabl e Source Comments [facility],non-owned Affiliates and Associated Physician Practices is amultiple site organization consisting of ambulatory clinics and hospital sitesin [place], [place], [place] and [place]. This disclosure is being madepursuant to the Care Everywhere program and may not contain all information available regarding this patient. Last updated 17.[facility] Allergies Active Allergy Reactions Criticality Noted Date Comments Bee Venom 12/05/2013 stop breathing and turn blue Enoxaparin Itching Low 03/05/2021 Gabapentin Dizziness,Palpitatio ns Low 02/08/2023 Glipizide-Metformin Hcl Vomiting 03/06/2021 Insulin Other 07/02/2015 Synthetic insulin. Throwing up and light headed. Metformin Nausea and/or Vomiting Low 11/10/2017 Procaine Shortness of Breath High 12/05/2013 stop breathing and turn blue Procaine is itzel local anesthetic. Other-See Past Updates Other 05/07/2011 Diabetic medications. Throwing up and lightheaded. Prednisone Shortness of Breath High 08/01/2016 Wasp Venom Protein Shortness of Breath High 07/11/19 10 Heart stops Medications * This document contains information received from the source organization and may not represent a complete record from that organization. * Be aware that medications may not be up to date on this document. Alwaysverify current medications with the patient. amLODIPine (Norvasc) 5 MG tablet Take 1 (one) tablet by mouth once daily 03/06/20 21 Active dulaglutide (Trulicity) 1.5 MG/0.5ML injection Inject 1.5 (one and one-half) mg subcutaneously every 7 days 02/26/20 20 Active isosorbide mononitrate CR 24hr (Imdur) 120 MG tablet Take 1 (one) tablet by mouth once daily 05/17/19 22 Active Savanna, Zingiber officinalis, (Savanna Root) 550 MG Take 1 tablet by mouth as needed 03/06/20 21 Active EPINEPHrine (Epipen) 0.3 MG/0.3ML auto-injector pen as needed 10/01/19 22 Active empagliflozin (Jardiance) 25 MG tablet Take 1 (one) tablet by mouth once daily 02/21/20 20 Active Cyanocobalamin 1000 MCG Take 1 (one) tablet by mouth once daily 03/06/20 21 Active meclizine (Antivert) 25 MG tablet 1 (one) tablet 02/21/20 23 Active metoprolol succinate XL 24hr (Toprol XL) 50 MG tablet Take 1 (one) tablet by mouth once daily 30 tablet 11 11/28/19 23 Active aspirin EC (Ecotrin) 81 MG tablet Take 1 (one) tablet by mouth once daily Active atorvastatin (Lipitor) 80 MG tablet Take 1 (one) tablet by mouth at bedtime 30 tablet 11 11/27/19 23 Active Cinnamon 500 MG Take by mouth once daily Active losartan (Cozaar) 25 MG tablet 05/30/19 24 Active Multiple Vitamin (Daily Vites) TABS Take 1 (one) tablet by mouth once daily Active ofloxacin (Floxin) 0.3 % otic solution INSTILL 5 DROPS INTO RIGHT EAR TWICE DAILY FOR 7 DAYS 05/19/19 24 Active oxyBUTYnin CR 24hr (Ditropan-XL) 10 MG tablet 1 (one) tablet 02/21/20 23 Active ranolazine ER 12hr (Ranexa) 500 MG tablet Take 1 (one) tablet by mouth 2 times daily 02/08/20 23 Active ticagrelor (Brilinta) 90 MG tablet Take 1 (one) tablet by mouth 2 times daily 11/27/19 23 Active thiamine (Vitamin B-1) 100 MG tablet Take 1 (one) tablet by mouth once daily Active tamoxifen (Nolvadex) 20 MG tabletIndicatio ns:Breast pain,Family history of breast cancer Take 1 (one) tablet by mouth once daily 30 tablet 11 06/01/19 24 Active Active Problems Problem Noted Date Diagnosed Date Shoulder subluxation, right 05/30/2011 Shoulder pain 05/07/2011 Family history of breast cancer Overview (06/06/2023): Lifetime risk for developing breast cancer is predicted to be: calculated 06/01/2023 25 % with the Lynette model, (2 biopsies) 26 % with the Tyrer-Cuzick model, (version 8, scattered densities, patient BRCA negative) 24 % with the Ean model, and 11 % with the BRCAPRO model. High risk screening recommendations: 1) yearly mammograms, and 2) yearly breast MRI with contrast. Consider risk reducing tamoxifen (pre- or postmenopausal) or raloxifene (Evista) (postmenopausal) for 5 years. Hysterectomy. Started tamoxifen, 20 mg, 06/01/2023. 04/29/2022 Recommind panel genetic testing on patient: Negative. [facility] panel genetic testing after 07/2021 includes: APC, ABA, AXIN2, BAP1, BARD1, BRCA1, BRCA2, BMPR1A, BRIP1, CDH1, CDK4, CDKN2A, CHEK2, CTNNA1, EGFR, EPCAM (large rearrangement only), FH, FLCN, GREM1 (large segment rearrangement select regions), HOXB13 (sequencing only), MEN1, MET, MITF, MLH1, MSH2, MSH3, MSH6, MUTYH, NTHL1, PALB2, PMS2, POLD1 (select regions), POLE (select regions), PTEN, RAD51C, RAD51D, RET, SDHA, SDHB, SDHC, SDHD, SMAD4, STK11, TERT, TP53, TSC1, TSC2, VHL. 48 genes. Have copy. Breast pain Overview (06/01/2023): Bilateral. Initial documentation of complaints of this in medical record going back to at least 200906/01/2023 breast surgeonJae. No concerning findings on exam. Breast pain bilateral diffuse and symmetric. Better if she wears a supportive bra. Reportedly tried caffeine elimination, vitamin-E, evening [place] oil, and topical arnica without improvement. Had previously declined trial of tamoxifen, per patient Discussed option of tamoxifen in detail and patient decided to try. Also discussed that Rowe would not recommend preventative mastectomies with reconstruction if the primary motivation is for pain as reconstruction does typically have pain associated with it. Could consider preventative mastectomies in light of high risk status, without reconstruction, but patient was not open to that. Also discussed that if pain related to weight of the breast, then reductions may be of benefit, so could discuss that with plastic surgeon as well. Immunizations Immunization Administration Dates Next Due PNEUMOCOCCAL PPSV23 04/06/2013 Family History Medical History Relation Name Comments COPD - Chronic Obstructive Pulmonary Disease Father Cancer - Lung Father age 60 High Blood Pressure Father Kidney Disease Father Stroke Father Cancer - Breast Maternal Grandmother age 98; no known genetic testing Cancer - Breast Mother age 59; no known genetic testing Cancer - Stomach Mother Diabetes Mother High Blood Pressure Mother Cancer - Cervical half-sister Elizabeth living age 43 Cancer - Ovarian Neg Hx Relation Name Status Comments Father Maternal Grandfather Maternal Grandmother Mother Paternal Grandfather Paternal Grandmother half-sister Elizabeth Alive maternal 1/2 Social History Tobacco Use Types Packs/Day Years Used Date Smoking Tobacco: Former Cigarettes 0.5 2 0 04/03/1985 - 04/03/1987 Smokeless Tobacco: Never Tobacco Cessation:Counseling Given: Not Answered Alcohol Use Standard Drinks/Week Comments Yes 0 (1 standard drink = 0.6 oz pur e alcohol) 1 month Comments No Sex and Gender Information Value Date Recorded Sex Assigned at Not on file Legal Sex Female 5:56 AM SUSTAINABILITY COORDINATOR Gender Identity Not on file Sexual Orientation Not on file Last Filed Vital Signs Vital Sign Reading Time Taken Comments Blood Pressure 132/90 03/03/2022 9:59 AM SUSTAINABILITY COORDINATOR Pulse 72 03/03/2022 9:59 AM SUSTAINABILITY COORDINATOR Temperature 37.2 C (98.9 F) 03/07/2021 1:37 AM SUSTAINABILITY COORDINATOR Respiratory Rate 18 03/07/2021 1:37 AM SUSTAINABILITY COORDINATOR Oxygen Saturation 96% 03/03/2022 9:59 AM SUSTAINABILITY COORDINATOR Inhaled Oxygen Concentration - - Weight 90.7 kg (200 lb) 06/01/2023 7:35 AM SUSTAINABILITY COORDINATOR Height 160 cm (5' 3) 06/01/2023 7:35 AM SUSTAINABILITY COORDINATOR Body Mass Index 35.43 06/01/2023 7:35 AM SUSTAINABILITY COORDINATOR Plan of Treatment Health Maintenance Due Date Last Done Comments COLOGUARD (AGES 45-75) - COLON CA SCREENING 1971 COLON MONITORING 1971 COLONOSCOPY - COLON CA SCREENING 1971 CT COLONOGRAPHY - COLON CA SCREENING 1971 Colorectal Cancer Screening 1971 FIT - COLON CA SCREENING 1971 FLEX SIG - COLON CA SCREENING 1971 HIV SCREENING 08/10/1986 HEPATITIS C SCREENING 08/06/1989 DTAP/TDAP/TD VACCINES (1 - Tdap) 08/10/1990 HEPATITIS B VACCINE (1 of 3 - 19+ 3-dose series) 08/10/1990 PAP SMEAR 08/10/1992 PNEUMOCOCCAL VACCINE 50+ (2 of 2 - PCV) 08/10/2021 04/06/2013 ZOSTER VACCINE (1 of 2) 08/10/2021 COVID-19 VACCINE (1 - season) 2023 DEPRESSION SCREENING 04/03/2024 INFLUENZA VACCINE (#1) 2024 MAMMOGRAM 05/31/2025 06/01/2023, 02/0 09/2022, 05/09/2022, Additional history exists SCREENING FOR DIABETES 06/13/2026 , 06/14/2023, 12/21/2022, Additional history exists HIB VACCINE Aged Out No longer eligi ble based on patient's age to complete this topic HPV VACCINE Aged Out No longer eligi ble based on patient's age to complete this topic MENINGOCOCCAL (Group B) VACCINE SHARED DECISION-MAKING Aged Out No longer eligible based on patient's age to complete this topic MENINGOCOCCAL GROUPS A/C/Y/W VACCINE Aged Out No longer eligible based on patient's age to complete this topic Medical Devices Implanted Type Area [employer] Assistant Manager Device Identifier Shelf Expiration Date Model / Serial / Lot Percuflex 6fr X26cm Implanted:Qty: 1 on 12/06/2013 by Yuriy Badillo MD at [facility] Left: Ureter 09/01/2016 [id number] / / [id number] Procedures Procedure Name Priority Date/Time Associated Diagnosis Comments MAMMO BILAT DIAGNOSTIC W DOREEN Routine 06/01/2023 8:46 AM SUSTAINABILITY COORDINATOR Breast pain COMPREHENSIVE METABOLIC PANEL STAT 03/06/2021 6:52 PM SUSTAINABILITY COORDINATOR from Last 3 Months or Most Recently Relevant to Health Maintenance Results * MAMMO BILAT DIAGNOSTIC W DOREEN (06/01/2023 8:46 AM SUSTAINABILITY COORDINATOR) Anatomical Region Laterality Modality Breast Bilateral Mammography 06/01/2023 8:49 AM SUSTAINABILITY COORDINATOR Impressions 06/01/2023 8:52 AM SUSTAINABILITY COORDINATOR : No mammographic evidence of malignancy. BI-RADS Category 1: Negative Examination. Recommendation: Continue annual or high risk screening regimen based on specialist's protocol. > Interpreting Provider: Jason Walters MD on 06/01/2023 8:52 AM Narrative 06/01/2023 8:52 AM SUSTAINABILITY COORDINATOR Bilateral mammography. Most recent comparison: [facility] 2022 & prior History: Nonfocal bilateral breast pain. Technique: Bilateral Breasts. Mammography views included: CC and MLO. Images interpreted with CAD. Following current [facility] protocol, 3D mammographic tomosynthesis images were obtained and reviewed on a dedicated viewing station. FINDINGS: Breast composition: Scattered areas of fibroglandular density. No suspicious microcalcifications, masses or areas of architectural distortion. Current ACR guidance does not recommend ultrasound for nonfocal breast pain. us Jo Rowe MD MAMMO ORDERABLES Final Resu lt * (ABNORMAL) COMPREHENSIVE METABOLIC PANEL (03/06/2021 6:52 PM SUSTAINABILITY COORDINATOR) BUN 17 7 - 26 mg/dL 03/06/2021 7:15 PM [facility] Creatinine 1.11(H) 0.56 - 0.96 mg/dL 03/06/2021 7:15 PM [facility] Sodium 141 136 - 145 mmol/L 03/06/2021 7:15 PM [facility] Potassium 3.9 3.5 - 4.5 mmol/L 03/06/2021 7:15 PM [facility] Chloride 105 98 - 107 mmol/L 03/06/2021 7:15 PM [facility] CO2 27 22 - 29 mmol/L 03/06/2021 7:15 PM [facility] Glucose 106 70 - 115 mg/dL 03/06/2021 7:15 PM [facility] Calcium 9.7 8.4 - 10.2 mg/dL 03/06/2021 7:15 PM [facility] Protein Total 7.5 6.0 - 8.3 g/dL 03/06/2021 7:15 PM [facility] Albumin 3.8 3.4 - 5.0 g/dL 03/06/2021 7:15 PM [facility] Bilirubin Total 0.3 0.2 - 1.2 mg/dL 03/06/2021 7:15 PM [facility] Alkaline Phosphatase 81 40 - 150 U/L 03/06/2021 7:15 PM [facility] ALT 28 5 - 55 U/L 03/06/2021 7:15 PM [facility] AST 32 5 - 34 U/L 03/06/2021 7:15 PM [facility] Anion Gap 13 8 - 18 03/06/2021 7:15 PM [facility] BUN/Creatinine Ratio 15 7 - 23 03/06/2021 7:15 PM [facility] Osmolality Calculated 294 270 - 300 mOsm/kg 03/06/2021 7:15 PM [facility] Albumin/Globulin Ratio 1.0(L) 1.1 - 2.3 03/06/2021 7:15 PM [facility] eGFR by CKD-EPI 58(L) >=90 mL/min/1.7 3 m2 03/06/2021 7:15 PM [facility] Blood BLOOD SPECIMEN / Unknown Venipuncture / Unknown 03/06/2021 6:52 PM SUSTAINABILITY COORDINATOR 03/06/2021 7:02 PM [facility] us Ashvin Dougherty MD LAB - CHEMISTRY ORDERABLES Fi nal Result [facility] [address] [place] [address], [facility] [phone] from Last 3 Months or Most Recently Relevant to Health Maintenance Insurance [facility] Advance Directives * FULL RESUSCITATION (Latest Code Status on File) Date Activated Date Inactivated Comments 04/05/2013 3:12 AM 04/06/2013 6:23 PM * FULL RESUSCITATION Date Activated Date Inactivated Comments 12/26/2011 3:14 PM 12/28/2011 9:33 PM Care Teams Drafter Cartographic Relationship Specialty Start Date End Date Spencer Cabrera PCP - General 03/06/21
--- OUTSIDE RECORDS SUMMARY | 2024-10-09 14:39 | XMS_ITS | Encounter Summary ---
Author Organization [email or web address] Address [address] [place] [address] Care Team Providers Care Back Digger Operator Name Role Phone Mack Camp DO Primary Care Provider Encounter Details Date Type Department Care Team (Late st Contact Info) Description 04/19/2001 [facility] [address] [place] [address] [phone] Thor Aceves DO NO ADDRESS ON FILE Social History Tobacco Use Types Packs/Day Years Used Date Smoking Tobacco: Never Assessed Comments Unknown Sex and Gender Information Value Date Recorded Sex Assigned at Not on file Legal Sex Female 3:54 AM FINANCIAL SERVICES ASSISTANT Gender Identity Not on file Sexual Orientation Not on file documented as of this encounter Plan of Treatment Not on file documented as of this encounter Visit Diagnoses Not on filedocumented in this encounter Care Teams Back Digger Operator Relationship Specialty Start Date End Date Mack Camp DO [address] [place] [address] PCP - General Geriatric Medicine 07/29/16 11/27/22 documented as of this encounter
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
--- OUTSIDE RECORDS SUMMARY | 2024-10-09 14:39 | XMS_ITS | Continuity of Care Document ---
Author Organization [facility] Address [address] [place] [address] Phone Care Team Providers Care Sheet Metal Technician Name Role Phone Paul Krishnan MD, MD Unavailable Unavaila ble Allergies, Adverse Reactions, Alerts Substance Reaction Status Criticality Insulins Active No Information PROCAINE HCL Active No Information BEE STING KIT Active No Information Procedures Procedure Date Rating Letter Office/outpatient visit,est, mod 2015 Supplemental Report Office/outpatient visit,est, mod 2015 Supplemental Report X-ray exam foot, minimum 3 views 2015 Office consultation, moderate 6 Advance Directives Directive Yes / No Effective Date File Name No Information Encounters Encounter Description Practice Location Reason(s) For Visit Diagnoses Date Provider Providers Copied on Encounter Rating Letter [facility], [address] [place] [address], [id number], tel:[phone] [facility] No Information 6 Ariella Miller. [address], [address], [place], [place], [id number] , [place]. tel: [phone] Office/outpat ient visit,est, mod [facility], [address] [place] [address], [place], [place], [id number], tel:[phone] [facility] left foot (chief complaint) Pain in left ankle and joints of left footContusion of left foot, subsequent encounter Sep-0 6 Ariella Miller. [address], [address], [id number] , . tel: [phone] Office/outpat ient visit,est, mod [facility], [address] [place] [address], [id number], tel:[phone] [facility] left foot (chief complaint) Pain in left ankle and joints of left foot 6 Ariella Miller. [address], [address], [id number] , [place]. tel: [phone] Office consultation, moderate [facility] [place], [address] [place] [address], [id number], [phone] [facility] [place] left foot (chief complaint) Pain in left ankle and joints of left foot 6 Ariella Miller. [address] [place] [address], [id number] , . tel: [phone] Family History Family Member Type Diagnosis Age At Onset Father Problem (finding) stroke Father Problem (finding) hypertension Sister Problem (finding) Cancer, unknown Mother Problem (finding) osteoporosis Mother Problem (finding) diabetes melli tus in first degree relative Mother Problem (finding) stroke Immunizations Vaccine Date Status Comments Flu (split) (3 yrs or older) refused Source: Other Provider Payers Payer name Insurance type Covered green party ID Authoriza tiiwona(s) [facility] [id number] Social History Type Description Quantity Date Captured Comments Sex Female Smoking Status No Information Chief Complaint And Reason For Visit No Information Reason For Referral Reason For Referral No Information Plan Of Treatment Date Type Action Status Referral Ordered: X-ray exam foot, minimum 3 views LT ordered Patient Education Body Mass Index: After Your Visit completed History Of Present Illness Encounter Date Complaint History Of Prese nt Illness left foot Brendalee return s to the office for left foot follow up. left foot Brendalee return s to the office for left foot follow up. left foot Brendalee presen ts to the office for left foot complaints. Functional Status Date Functional Assessmen t No Information Instructions Date Instruction Additional Infor mation No Information Assessments Type Assessment Date No Information Patient Care Teams Name Effective Dates (start - stop) Status Members No Information
--- OUTSIDE RECORDS SUMMARY | 2024-10-09 14:39 | XMS_ITS | Encounter Summary ---
Author Organization [facility] Address 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
--- OUTSIDE RECORDS SUMMARY | 2024-10-09 14:39 | XMS_ITS | Clinical Summary ---
Author Organization [facility] Address [address] [place] [address] Care Team Providers Care Tooling Specialist Name Role Phone Edgar Cabrera MD Primary Care Provider [phone] Family History Medical History Relation Comments Breast Cancer Maternal Grandmother Breast Cancer Mother Relation Status Comments Maternal Grandmother Mother Social History Tobacco Use Types Packs/Day Years Used Date Smoking Tobacco: Never Assessed Comments Unknown Sex and Gender Information Value Date Recorded Sex Assigned at Not on file Legal Sex Female 9:52 AM CDT Gender Identity Not on file Sexual Orientation Not on file Plan of Treatment Health Maintenance Due Date Last Done Comments Cervical Cancer Screening Pap Smear (Age 30 to 64) Every 3 Years 1971 Colorectal Cancer Screening Colonoscopy (10 Years) 1971 Annual Physical 08/10/1974 Hepatitis C 08/10/1989 DTaP, Tdap and Td Vaccines (1 - Tdap) 08/10/1990 Hepatitis B Vaccines (1 of 3 - 19+ 3-dose series) 08/10/1990 Cervical Cancer Screening Pap with HPV Testing (Age 30 to 64) Every 5 Years 08/10/2001 Cervical Cancer Screening with HPV 08/10/2001 Pneumococcal Vaccine: 50+ Years (2 of 2 - PCV) 08/10/2021 04/06/2013 Zoster Vaccines (1 of 2) 08/10/2021 COVID-19 Vaccine ( - season) 2023 Mammogram Screening 05/31/2025 06/01/2023, 05/09/2022, 09/21/2021, Additional history exists Meningococcal B Vaccine Aged Out No l onger eligible based on patient's age to complete this topic Meningococcal Vaccine Aged Out No maico wai eligible based on patient's age to complete this topic RSV Immunizations Under 20 Months Aged Out No longer eligible based on patient's age to complete this topic Procedures Procedure Name Priority Date/Time Associated Diagnosis Comments MG SID Perez DOREEN BILAT DIGI Routine 09/21/2021 1:16 PM CDT Left breast lump History of abnormal mammogram from Last 3 Months or Most Recently Relevant to Health Maintenance Results * MG SID Perez DOREEN BILAT DIGI (09/21/2021 1:16 PM CDT) Anatomical Region Laterality Modality Breast Bilateral Mammography 09/21/2021 2:48 PM CDT Addenda Addendum by Halima Landaverde MD on 09/23/2021 9:25 AM CDT Area of asymmetry in the right breast seen on cc spot compression view tomographic image 39 and adjacent images has a masslike appearance on present study. Although dimensions are similar on prior exam, this appears more conspicuous on present study without definite change in size. Due to possible subtle differences in appearance, MRI should be considered for further evaluation. =====IMPRESSION:===== Lateral right breast asymmetry warranting MRI Assessment: ACR BI-RADS 0 - INCOMPLETE: NEEDS ADDITIONAL IMAGING EVALUATION Recommendation: 1As discussed in report Right COMMENTS: Patient was notified of these findings including need for further imaging by MRI by me by phone at 9:20 AM on 09/23/2021. Examination: Breast ultrasound Findings: See combined report above. Comments: Ordered By: EDGAR CABRERA Interpreted By: Halima Landaverde MD, 09/23/2021 9:21 AM Impressions 09/21/2021 2:53 PM CDT =====IMPRESSION:===== Suspected cyst in the right breast at the 10:00 position, 9 cm from the nipple. Six-month follow-up is recommended. Dense breast tissue bilaterally, stable in parenchymal pattern from prior exam. Stable benign-appearing mass left breast back to 2011. Annual screening mammogram of the left breast recommended. ASSESSMENT: ACR BI-RADS 3 - PROBABLY BENIGN FINDING(S) - SHORT INTERVAL FOLLOW- UP SUGGESTED Recommendation: 1: Short interval follow-up in 6 months. Right COMMENTS: Ordered By: EDGAR CABRERA Interpreted By: Halima Landaverde MD, 09/21/2021 2:48 PM Narrative 09/21/2021 2:53 PM CDT EXAMINATION: Digital bilateral diagnostic mammogram with 3-D tomography and bilateral breast ultrasound [id number], [id number] EXAM DATE/TIME: 09/21/2021 1:00 PM REASON FOR EXAM: Left breast lump COMPARISON: 09/05/2019, 12/13/2017, 03/15/2017, 02/28/2012 TECHNIQUE: Digital diagnostic mammography of both breasts was performed in addition to 3-D Tomosynthesis technique. This study was read with the assistance of a computer-aided detection system. And bilateral breast ultrasound TISSUE DENSITY: The breast tissue is heterogeneously dense, which may obscure small masses. FINDINGS: Parenchymal pattern in the breasts bilaterally is stable as compared prior study. Benign-appearing mass in the left breast medially appears stable from prior studies dating back to 2011. No definite discrete mass in the right breast is seen. Subtle asymmetry on cc view laterally appear stable from prior studies without definite correlate on MLO or ML view. No focal correlate on ultrasound is seen. There is focal cyst suspected at the 10:00 position, 9 cm from the nipple. I suspect this may be different from previous suspected cyst. This measures 0.67 x 0.38 x 0.31 cm. This is hypoechoic with no shadowing or spiculation seen. No discrete mass on ultrasound is noted. Some areas of subtle shadowing in the upper outer right breast and upper outer left breast is noted which is similar to prior exam, likely due to dense breast tissue or ligamentous structures. Edgar Cabrera MD MAMMO Edited Resul t - Final from Last 3 Months or Most Recently Relevant to Health Maintenance Insurance [facility] Care Teams Tooling Specialist Relationship Specialty Start Date End Date Edgar Cabrera MD [address] [place] [id number] PCP - General FAMILY PRACTICE 09/02/19
--- OUTSIDE RECORDS SUMMARY | 2024-10-09 14:39 | XMS_ITS | Clinical Summary ---
Author Organization [facility] Address [address] [place] [address] Care Team Providers Care Roller Varnisher Name Role Phone Melo Das DO Unavailable [phone] Spencer Cabrera MD Primary Care Provider + [...] every 7 days Monday Active vitamin B shtc-M-KL-copper -zinc 5-1.5-25 mg tablet Take 1 tablet [...] 03/04/2021 Assessment & Plan (03/05/2021 12:42 AM FORESTRY PATROLMAN): Exact etiology unclear. Appears to be exertional but also seems to be worsened with deep breathing with a certain amount of reproducibility with palpation. Cardiology is following. Stress test was negative. Echo showed normal EF. Will consider CT of the chest if cardiac workup is negative. Exhaustion 03/02/2021 Assessment & Plan (03/02/2021 1:02 PM FORESTRY PATROLMAN): Patient's exhaustion is difficult at this point [...] (cerebrum) 04/17/2019 Coronary artery disease invo lving koi coronary artery of koi heart without angina pectoris 06/14/2018 Overview (06/15/2018): Added automatically from request for surgery [id number] Assessment & Plan (03/05/2021 12:39 AM FORESTRY PATROLMAN): Continue aspirin, statin, Imdur and Arb. Type 2 diabetes mellitus wit h hyperglycemia, without long-term current use of insulin 06/13/2018 Assessment & Plan (03/05/2021 12:39 AM FORESTRY PATROLMAN): Patient reportedly allergic to insulin. She is [...] yesterday, uncertain whether she actually saw an rhinologist regarding this. Diabetes endo team to talk [...] 2018 Assessment & Plan (03/05/2021 12:40 AM FORESTRY PATROLMAN): Echo shows normal EF with grade 1 [...] medications. Assessment & Plan (03/05/2021 12:40 AM FORESTRY PATROLMAN): Continue home medications with hold parameters Assessment & Plan (06/15/2018 2:39 AM CDT): Previous home regimen: Spironolactone 25, Coreg 25 BID, Entresto 24-26, Lasix 20 daily - management as above Assessment & Plan (06/13/2018 3:30 AM CDT): Patient received a dose of nitroglycerin. The chest pain still present. Currently on heparin drip. Continue with heparin steel handler Continue cardiac pertinent home medications Status post [...] EDEN x1 to mid-LAD in 11/2017 at [facility]. - continue ASA, Brilinta, Crestor - management [...] AM CDT): Coronary artery disease invo lving koi coronary artery of koi heart 05/17/19 20 Surgical History Surgery Date Site/Laterality Comments APPENDECTOMY HYSTERECTOMY CHOLECYSTECTOMY SINUS SURGERY CYSTOSCOPY KIDNEY W/ URETERAL GUIDE WIRE Medical History Medical History Date Comments Diabetes mellitus (HCC) CHF (congestive heart failure) (HCC) Coronary artery disease Hypertension PTSD (post-traumatic stress disorder) Hyperlipidemia Systolic heart failure (HCC) Hematuria Kidney stone Family History Medical History Relation Name Comments Heart attack Mother Relation Name Status Comments Mother Social History Tobacco Use Types Packs/Day [...] often do you attend chur ch or buddhism services? Never 11/24/2022 Do you belong to any clubs o r organizations such as moravian groups, unions, fraternal or athletic groups, or [...] place to sleep or slept in a intermediate (including now)? No 11/24/2022 Personal Safety Answer Date Recorded Have you ever been in or are you currently in a harmful physical or emotional relationship or is someone making you feel afraid or unsafe? 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 on file Not on file Not on fi le Obstetrics History Last Filed Vital Signs Vital Sign Reading [...] 12/21/2022 7:16 AM CDT Plan of Treatment Health Maintenance Due Date Last Done Comments Albumin Creatinine Ratio, Urine 1970 Colon Cancer Screening-Colonoscopy 1970 Hepatitis C Screening 1970 Dilated Eye Exam 1971 Foot Exam 1970 Hepatitis B Screening 08/10/1989 Regular Well Visit/Exam 18-64 08/10/1989 Pneumococcal vaccine <65 (2 of 2 - PCV) 04/06/2014 04/06/2013 Depression Screening 06/13/2019 06/12/2018 Zoster Vaccine (1 of 2) 08/10/2021 Hemoglobin A1C 05/28/2023 11/25/2022, 04/03, 06/12/2018, Additional history exists eGFR 12/22/2023 12/21/2022, 11/02, 11/24/2022, Additional history exists Breast Cancer Screening-Mammogram 05/31/2024 06/01/2023, 06/01/2023, 09/21/2021, Additional history exists Influenza Vaccine (#1) 2024 Lipid Panel 05/21/2025 05/21/2024, 11/02, 12/18/2021, Additional history exists DTaP/Tdap/Td Vaccine (2 - Td or Tdap) 05/09/2026 05/09/2016 Medical Devices Implanted Type Area [employer] Device Identifier Shelf Expiration Date Model / Serial / Lot [employer] Candido Angio-Seal Vip 6fr Closere Device [id number] - [id number] Implanted:Qty : 1 on 11/24/2022 by Ameya Swann MD at [facility] Collagen Right: Common Femoral Artery [employer] Candido [id number] / / Medtronic Card Vasc Surgery 2.50 X 08mm [place] Rx Coronary Stent [id number] - [id number] Implanted:Qty : 1 on 11/24/2022 by Ameya Swann MD at [facility] Stent Left: Anterior Descending Cornary Artery Medtronic Card Vasc Surgery 05/03/2025 [id number] / / [id number] [employer] [id number] Xience Alpine 3.5mm 18mm 145cm Rapid Exchange Radiopaque 1 Access - [id number] Implanted:Qty : 1 on 11/10/2017 by Lauri Ball MD at [facility] [employer] 05/23/2020 [id number] Procedures Procedure Name Priority Date/Time Associated Diagnosis Comments EGFR STAT 12/21/2022 4:03 AM CDT HEMOGLOBIN A1C Routine 11/25/2022 3:19 AM CDT LIPID PANEL Routine 11/24/2022 9:39 AM CDT from Last 3 Months or Most Recently Relevant to Health Maintenance Results * eGFR (12/21/2022 4:03 AM CDT) eGFR 91 mL/min/1. 73 m2 ALANA WALKER (FERNANDA) Comment: Interpretive Data Reference Interval Normal >/= [...] 4:03 AM CDT 12/21/2022 4:07 AM CDT us Binta Santana MD LAB BLOOD ORDERABLES Fin al Result ALANA WALKER (FERNANDA) 1 [facility] Department [place] [address] * Hemoglobin A1c (11/25/2022 3:19 AM CDT) Hgb A1C 5.2 4.0 - 5.6 % ALA[facility] ZHOU Estimated Average Glucose 103 mg/dL ALANA ZHOU Comment: The ADA recommends reporting an estimated Average Glucose (eAG) with all Hemoglobin A1c results using the equation derived from a study of 507 normal and diabetic adults. Minority populations were underrepresented and children were not included. (Diabetes Care 31:5104-9832, 2008). The eAG is not equivalent to a fasting glucose. Blood 11/25/2022 3:19 AM CDT 11/25/2022 3:24 AM CDT us Tc Landa MD LAB BLOOD ORDERABLES Final Result ALANA [address] [place] [address] * Lipid panel (11/24/2022 9:39 AM CDT) [...] BLOOD ORDERABLES Final Resul t ALANA ZHOU [address] [place] [address] from Last 3 Months or Most Recently Relevant to Health Maintenance Insurance [facility] CHOICE PLUS [facility] H[facility]/PPO Address: [address] [place], [place] [id number] [facility] Address: [address] [place] [id number] [facility] CHOICE PLUS [facility]/PPO Address: [place] [address] Advance Directives For more information, please contact: [phone] * Full Code (Latest Code Status on [...] 2:00 AM 04/19/2019 12:49 AM Care Teams Roller Varnisher Relationship Specialty Start Date End Date Spencer Cabrera MD PCP - General Family Medicine 05/17/19 Melo Das DO Cardiovascular Disease 11/10/17
--- OUTSIDE RECORDS SUMMARY | 2024-10-09 14:39 | XMS_ITS | Encounter Summary ---
Author Organization [facility] Address [address] [place] [address] Care Team Providers Care Subsystems Engineer Name Role Phone Mack Camp DO Primary Care Provider Encounter Details Date Type Department Care Team (Late st Contact Info) Description 05/30/2001 [facility] [address] [place] [address] [id number] Thor Aceves DO NO ADDRESS ON FILE Social History Tobacco Use Types Packs/Day Years Used Date Smoking Tobacco: Never Assessed Comments Unknown Sex and Gender Information Value Date Recorded Sex Assigned at Not on file Legal Sex Female 3:54 AM BAGGING SALVAGER Gender Identity Not on file Sexual Orientation Not on file documented as of this encounter Plan of Treatment Not on file documented as of this encounter Visit Diagnoses Not on filedocumented in this encounter Care Teams Subsystems Engineer Relationship Specialty Start Date End Date Mack Camp DO [address] [place] [address] PCP - General Geriatric Medicine 07/29/16 11/27/22 documented as of this encounter
--- OUTSIDE RECORDS SUMMARY | 2024-10-09 14:39 | XMS_ITS ---
Author Organization [facility] Address [address] [place], [place] [id number] Care Team Providers Care Swim Coach Name Role Phone Katty Johnson Primary Care Provider Ang Harry Unavailable [phone] Migration, Provider Unavailable Unavailable Allergies Allergen (clinical [...] Date Provider Diagnosis [facility] [address] [place], [place] [id number] 03/16/2024 Provider Migration Plan Of Treatment No Information Progress Notes * Brett LAZO LDOB:1970 (54 yo F)Acc No.[id number]:03/16/2024 Patient: Brett GUZMÁN Provider: Abdirizak moya Migration :1970 A ge:53 Y S ex:Female Date:03/16/2024 Address:[facility] [address], [id number] Pcp:Katty Lai Subjective: * Chief Complaints: * 1 . Multum To Medispan Conversion Encounter. * Medical History: * Medications: T aking Citalopram Hydrobromide , Notes to Pharmacist: *Please review and pick correct strength-formulation from Medispan options. If intended option is not shown, discontinue and re-order from Quick Search*, Taking Lisinopril , Notes to Pharmacist: *Please review and pick correct strength-formulation from Medispan options. If intended option is not shown, discontinue and re-order from Quick Search*, Taking risperiDONE , Notes to Pharmacist: *Please review and pick correct strength-formulation from Medispan options. If intended option is not shown, discontinue and re-order from Quick Search* * Allergies: N OVACAINE. Objective: * Vitals: * Physical Examination: Assessment: Plan: * Treatment: * Images: * Electronic signature of Avi vasquez Migration on 10/09/2024 at 02:39 PM CDT Sign off status: Pending * Provider: Abdirizak moya Migration Date: 05/17/2023 Generated for Catrachita chandra/Adalberto/Keyana on: 0 10/09/2024 02:39 PM CDT
--- OUTSIDE RECORDS SUMMARY | 2024-10-09 14:39 | XMS_ITS | Data Portability ---
Author Organization [place] - [facility] IP Address [address] [place] [address] Care Team Providers Care Tower Technician Name Role Phone EDGAR KEVIN Referring Provider MARCOS KIRK [employer] Assessment No assessment recorded. Plan of Treatment Reminders Order Date Submit Date Provider Last Modified By Organization Details Last Modified Time Details Appointments PROCEDURE 20 2024 01:00P M DISP_Ultr asound Tech 1 Not available Not available Not available EST 30 2024 01:30P M Marcos WALDROP Not available Not available Not available Lab lipid panel, serum 2024 025 DALIA [facility], [address], [place], [address], 10/01/2024 03:14:22 hepatic function panel, serum 2024 025 DALIA [facility], [address], [place], [address], 10/01/2024 03:14:22 lipid panel, serum 2023 024 [email or web address] [facility], [address], [place], [address], 06/18/2024 11:49:27 hepatic function panel, serum 2023 024 [email or web address] [facility], [address], [place], [address], 06/18/2024 11:49:34 BMP, serum or plasma 2022 023 DALIA [facility], [address], [place], [address], 02/16/2023 10:37:11 CBC w/ diff 2022 023 DALIA [facility], [address], [place], [address], 02/16/2023 10:37:10 PT/INR 2022 023 DALIA [facility], [address], [place], [address], 02/16/2023 10:37:12 Referral None recorded. Procedures trans-tho racic echocardi ogram (TTE) (PROC) 2024 025 9 Marcos Kirk PA-C, [address], [address], [place], [address], 07/03/2024 15:49:36 trans-tho racic echocardi ogram (TTE) (PROC) 2023 024 DALIA Kirk PA-C, [address], [address], [place], [address], 03/15/2024 17:03:03 Surgeries left heart catheteri zation (SURG) 2022 023 DALIA Barba MD, [address], [address], [place], [address], 03/06/2023 17:43:47 Imaging NM, myocardia l perfusion scan, w/ stress 2023 024 DALIA Kirk PA-C, [address], [address], [place], [address], 03/15/2024 17:03:56 Medication Orders clopidogr el 75 mg tablet 2023 024 [facility], [address] [place], [address], 09/26/2023 15:06:14 Ranexa 500 mg tablet,ex tended release 2022 023 [facility] [address], [address] [place], [address], 02/06/2023 12:21:22 Patient TargetsNo targets recorded. Patient Instructions Encounter Date Encounter Id Patient Instructions Last Modified By Organization Details Last Modified Time 02/06/2023 [id number] statins: care instructions Not available 02/06/2023 12:21:13 03/26/2024 [id number] statins: care instructions [email or web address] Not available 03/26/2024 12:33:00 07/03/2024 [id number] statins: care instructions [email or web address] Not available 07/03/2024 15:49:36 Reason for Referral None Reported. Results Created Date Observation Date Name Description Value Unit Range Abnormal Flag Note LastModifiedBy Organization Detail LastModifiedTime 02/16/2002/16/2023 CBC/D /PLT W/ REFLE X BAYRON TIN WBC 7.5 x10e3 /uL 3.4-10 .8 Not Available [facility] ([facility]) [address] [place], [address], 02/16/2023 10:37:10 02/16/20 23 02/16/2023 CBC/D /PLT W/ REFLE X [facility] TIN RBC 5.14 x10e6 /uL 3.77-5 .28 Not Available [facility] ([facility]) [address] [place], [address], 02/16/2023 10:37:10 02/16/20 23 02/16/2023 CBC/D /PLT W/ REFLE X B[facility] TIN hemoglobin 14.7 g/dL 11.1-1 5.9 Not Available [facility] ([facility]) [address] [place], [address], 02/16/2023 10:37:10 02/16/20 23 02/16/2023 CBC/D /PLT W/ REFLE X BAYRON TIN hematocrit 46.6 % 34.0-4 6.6 Not Available [facility] ([facility]) [address], [place], [address], 02/16/2023 10:37:10 02/16/20 23 02/16/2023 CBC/D /PLT W/ REFLE X [facility] TIN MCV 91 fL 79-97 Not Available [facility] ([facility]) [address], [place], [address], 02/16/2023 10:37:10 02/16/2002/16/2023 CBC/D /PLT W/ REFLE X BAYRON TIN MCH 28.6 pg 26.6-3 3.0 Not Available [facility] ([facility]) [address], [place], [address], 02/16/2023 10:37:10 02/16/20 23 02/16/2023 CBC/D /PLT W/ REFLE X BAYRON TIN MCHC 31.5 g/dL 31.5-3 5.7 Not Available [facility] ([facility]) [address], [place], [address], 02/16/2023 10:37:10 02/16/20 23 02/16/2023 CBC/D /PLT W/ REFLE X B[facility] TIN RDW 13.8 % 11.7-1 5.4 Not Available [facility] ([facility]) [address], [place], [address], 02/16/2023 10:37:10 02/16/20 23 02/16/2023 CBC/D /PLT W/ REFLE X BAYRON TIN platelets 307 x10e3 /uL 150-45 0 Not Available [facility] ([facility]) [address], [place], [address], 02/16/2023 10:37:10 02/16/20 23 02/16/2023 CBC/D /PLT W/ REFLE X BAYRON TIN neutrophils 72 % not estab. Not Available [facility] ([facility]) [address], [place], [address], 02/16/2023 10:37:10 02/16/20 23 02/16/2023 CBC/D /PLT W/ REFLE X BAYRON TIN lymphs 19 % not estab. Not Available [facility] ([facility]) [address], [place], [address], 02/16/2023 10:37:10 02/16/20 23 02/16/2023 CBC/D /PLT W/ REFLE X BAYRON TIN monocytes 6 % not estab. Not Available [facility] ([facility]) [address], [place], [address], 02/16/2023 10:37:10 02/16/20 23 02/16/2023 CBC/D /PLT W/ REFLE X BAYRON TIN eos 3 % not estab. Not Available [facility] ([facility]) [address], [place], [address], 02/16/2023 10:37:10 02/16/20 23 02/16/2023 CBC/D /PLT W/ REFLE X BAYRON TIN basos 0 % not estab. Not Available [facility] ([facility]) [address], [place], [address], 02/16/2023 10:37:10 02/16/20 23 02/16/2023 CBC/D /PLT W/ REFLE X BAYRON TIN immature cells HAND ASSEMBLER Not Available [facility] ([facility]) [address], [place], [address], 02/16/2023 10:37:10 02/16/20 23 02/16/2023 CBC/D /PLT W/ REFLE X BAYRON TIN neutrophils (absolute) 5.4 x10e3 /uL 1.4-7. 0 Not Available [facility] ([facility]) [address], [place], [address], 02/16/2023 10:37:10 02/16/20 23 02/16/2023 CBC/D /PLT W/ REFLE X BAYRON TIN lymphs (absolute) 1.4 x10e3 /uL 0.7-3. 1 Not Available [facility] ([facility]) [address], [place], [address], 02/16/2023 10:37:10 02/16/20 23 02/16/2023 CBC/D /PLT W/ REFLE X BAYRON TIN monocytes(ab solute) 0.5 x10e3 /uL 0.1-0. 9 Not Available [facility] ([facility]) [address], [place], [address], 02/16/2023 10:37:10 02/16/20 23 02/16/2023 CBC/D /PLT W/ REFLE X BAYRON TIN eos (absolute) 0.2 x10e3 /uL 0.0-0. 4 Not Available [facility] ([facility]) [address], [place], [address], 02/16/2023 10:37:10 02/16/20 23 02/16/2023 CBC/D /PLT W/ REFLE X BAYRON TIN baso (absolute) 0.0 x10e3 /uL 0.0-0. 2 Not Available [facility] ([facility]) [address] [place], [address], 02/16/2023 10:37:10 02/16/20 23 02/16/2023 CBC/D /PLT W/ REFLE X BAYRON TIN immature granulocytes 0 % not estab. Not Available [facility] ([facility]) [address] [place], [address], 02/16/2023 10:37:10 02/16/20 23 02/16/2023 CBC/D /PLT W/ REFLE X BAYRON TIN immature grans (abs) 0.0 x10e3 /uL 0.0-0. 1 Not Available [facility] ([facility]) [address], [place], [address], 02/16/2023 10:37:10 02/16/20 23 02/16/2023 CBC/D /PLT W/ REFLE X BAYRON TIN NRBC HAND ASSEMBLER Not Available [facility] ([facility]) [address], [place], [address], 02/16/2023 10:37:10 02/16/2002/16/2023 CBC/D /PLT W/ REFLE X BAYRON TIN hematology comments: HAND ASSEMBLER Not Available [facility] ([facility]) [address], [place], [address], 02/16/2023 10:37:10 02/16/20 23 02/15/2023 BASIC METAB OLIC PANEL (8) interpretati on: COMMEN T GFR estim ate at the follo wing level for >or=3 month s is class ified as follo ws: GFR WITH KIDNE Y DAMAG E WITHO UT KIDNE Y DAMAG E >or=9 0 Stage 1 Lin l 60-89 Stage 2 Decr eased GFR 30-59 Stage 3 Stage 3 15-29 Stage 4 Stage 4 <15 (or dialy sis) Stage 5 Stage 5 Estim ated GFR will over estim ate true GFR if serum creat inine is risin g as in acute renal failu re and will under estim ate true GFR if serum creat inine is decli cami as in resol ving acute renal failu re. Addit ional infor gay nielsen may be found at www.k doqi. org. Not Available [facility] ([facility]) [address], [place], [address], 02/16/2023 10:37:11 02/16/20 23 02/16/2023 BASIC METAB OLIC PANEL (8) glucose 87 mg/dL 70-99 Not Available [facility] ([facility]) [address] [place], [address], 02/16/2023 10:37:11 02/16/20 23 02/16/2023 BASIC METAB OLIC PANEL (8) BUN 16 mg/dL 6-24 Not Available [facility] ([facility]) [address] [place], [address], 02/16/2023 10:37:11 02/16/20 23 02/16/2023 BASIC METAB OLIC PANEL (8) creatinine 1.12 mg/dL 0.57-1 .00 above high normal Not Available [facility] ([facility]) [address] [place], [address], 02/16/2023 10:37:11 02/16/20 23 02/16/2023 BASIC METAB OLIC PANEL (8) eGFR 60 mL/mi n/1.7 3 >59 Not Available [facility] ([facility]) [address] [place], [address], 02/16/2023 10:37:11 02/16/20 23 02/16/2023 BASIC METAB OLIC PANEL (8) BUN/creatini ne ratio 14 9-23 Not Available [facility] ([facility]) [address] [place], [address], 02/16/2023 10:37:11 02/16/20 23 02/16/2023 BASIC METAB OLIC PANEL (8) sodium 142 mmol/ L 134-14 4 Not Available [facility] ([facility]) [address] [place], [address], 02/16/2023 10:37:11 02/16/20 23 02/16/2023 BASIC METAB OLIC PANEL (8) potassium 4.6 mmol/ L 3.5-5. 2 Not Available [facility] ([facility]) [address] [place], [address], 02/16/2023 10:37:11 02/16/20 23 02/16/2023 BASIC METAB OLIC PANEL (8) chloride 104 mmol/ L 96-106 Not Available [facility] ([facility]) [address], [place], [address], 02/16/2023 10:37:11 02/16/20 23 02/16/2023 BASIC METAB OLIC PANEL (8) carbon dioxide, total 25 mmol/ L 20-29 Not Available [facility] ([facility]) [address], [place], [address], 02/16/2023 10:37:11 02/16/20 23 02/16/2023 BASIC METAB OLIC PANEL (8) calcium 9.9 mg/dL 8.7-10 .2 Not Available [facility] ([facility]) [address], [place], [address], 02/16/2023 10:37:11 02/16/20 23 02/16/2023 PROTH ROMBI N TIME (PT), SERIA L INR 1.0 0.9-1. 2 Refer ence inter stephen is for non-a ntico agula ildefonso patie nts. Sugge sted INR thera peuti c range for Vitam in K antag onist thera py: Stand wesley Dose (mode rate inten sity thera peuti c range ): 2.0 - 3.0 Highe r inten sity thera peuti c range 2.5 - 3.5 Not Available [facility] ([facility]) [address], [place], [address], 02/16/2023 10:37:12 02/16/20 23 02/16/2023 PROTH ROMBI N TIME (PT), SERIA L prothrombin time 10.9 sec 9.1-12 .0 Not Available [facility] ([facility]) [address] [place], [address], 02/16/2023 10:37:12 02/16/20 23 02/16/2023 MONICA Nielsen TIME (PT), АНДРЕЙ Patel pdf . Not Available [facility] ([facility]) [address], [place], [address], 02/16/2023 10:37:12 02/07/20 23 02/06/2023 elect carleen parekh am No observ ation record ed. [email or web address] Marcos Kirk PA-C [address], [place], [address], 03/14/2023 11:10:03 03/15/20 24 03/15/2024 trans -thor acic echoc ardio gram (TTE) (PROC ) No observ ation record ed. [email or web address] Marcos Kirk PA-C [address], [place], [address], 03/26/2024 12:23:14 03/15/20 24 03/15/2024 NM, myoca rdial perfu roshan scan, w/ stres s No observ ation record ed. [email or web address] Marcos Kirk PA-C [address], [place], [address], 03/26/2024 12:23:14 Result Notes None recorded. Problems Name Problem SNOMED Code Status Onset Date Resolution Date Notes Provider Name and Address Organization Details Recorded Time Dyspnea 988456871 Active 2022 Radha Real null, [facility] 3 10:42:31 Coronary atheroscle rosis 613462305 Active 2022 Radha Del Cidsm null, [facility] 3 10:42:38 Chronic systolic heart failure 487227474 Active 2022 Radha Del Cidsm null, [facility] 3 10:42:52 Hyperchole sterolemia 33124700 Active 2022 Radha Del Cidsm null, [facility] 3 10:43:06 Congestive heart failure 10953747 Active 2022 Marcos WALDROP [address] [place], [address] , [facility] 3 11:16:53 Angina pectoris 338238158 Active 2022 Marcos WALDROP [address] [place], [address] , [facility] 3 11:21:45 Type 2 diabetes mellitus without complicati on 802855790 Active 2022 Marcos WALDROP [address] [place], [address] , [facility] 3 17:17:09 Aortic valve regurgitat ion 22695619 Active 2022 Marcos WALDROP [address] [place], [address] , [facility] 3 16:32:[address] segment elevation myocardial infarction of inferior wall 142132348 Active 2022 Marcos WALDROP [address] [place], [address] , [facility] 3 14:19:[address] segment elevation myocardial infarction of anterior wall 389691581 Active 2022 Marcos WALDROP [address] [place], [address] , [facility] 3 14:19:47 Vertigo 301975877 Active 2022 Marcos WALDROP [address] [place], [address] , [facility] 3 10:16:22 Gastroesop hageal reflux disease 437551703 Active 2022 Marcos WALDROP [address] [place], [address] , [facility] 3 12:16:37 Cardiovasc ular stress test abnormal 875071998 Active 2023 Marcos WALDROP [address] [place], [address] , [facility] 4 12:32:32 Mitral valve regurgitat ion 54697730 Active 2023 Marcos WALDROP [address] [place], [address] , [facility] 4 12:44:41 Transient cerebral ischemia 194758191 Active 2024 Marcos WALDROP [address] [place], [address] , [facility] 5 15:47:25 Strain of right Achilles tendon 5922311214790 9105 Active 2019 Not Available [facility] 3 04:15:25 Chest pain 81769348 Active 2020 Not Available [facility] 3 04:15:25 Essential hypertensi on 53914753 Active 2021 Not Available [facility] 3 04:15:25 Problem Notes None recorded. Procedures Surgical History Date Name Laterality Status Provider Name and Address Organization Details Recorded Time 02/21/20 23 LEFT HEART CATHETERIZATION (SURG) completed Marcos WALDROP [address] [place], [address], [facility] 03/14/2023 11:10:03 11/25/19 23 Cardiac Cath completed Halima Jacobs [facility] 12/09/2022 14:09:46 other completed Not Available [facility] 04/10/2022 04:14:15 operative procedure on spinal structure completed Not Available [facility] 04/10/2022 04:14:15 Hysterectomy completed Not Available [facility] 04/10/2022 04:14:15 Sinus Surgery completed Not Available [facility] 04/10/2022 04:14:15 Cholecystectomy completed Not Available [facility] 04/10/2022 04:14:15 Appendectomy completed Not Available [facility] 04/10/2022 04:14:15 Imaging Results None recorded. Procedure Notes None recorded. Medical Equipment None Reported. Allergies Allergen ID Allergen Name Allergen Category Reaction Reaction Severity Criticality Documentation Date Start Date Code Code System Note Provider Name and Address Organization Details Recorded Time 282660 procaine medicatio n Not available Not available Not available 04/10/2022 8701 RxNorm Not Available [facility] 3 04:16:34 612086 procaine hydrochlo ride medicatio n Not available Not available Not available 04/10/2022 64817 8 RxNorm Not Available [facility] 3 04:16:34 521040 metformin medicatio n Not available Not available Not available 04/10/2022 6809 RxNorm Not Available [facility] 3 04:16:34 830032 bee pollen environme nt,medica tion Not available Not available Not available 04/10/2022 23567 7 RxNorm Not Available [facility] 3 04:16:34 Medications Name Sig Start Date Stop Date Status Note LastModified by Organization Details LastModified Time methocarb raudel 500 mg tablet TAKE 1 TABLET BY MOUTH THREE TIMES DAILY 03/09 completed Not Available Not Available Not Available atorvasta tin 80 mg tablet TAKE 1 TABLET BY MOUTH ONCE DAILY active Not Available Not Available No t Available carvedilo l 25 mg tablet TAKE 1 TABLET BY MOUTH TWO TIMES DAILY WITH FOOD 03/09 completed Not Available Not Available Not Available atorvasta tin 20 mg tablet TAKE 1 TABLET BY MOUTH ONCE DAILY 03/26 completed Not Available Not Available Not Available oxybutyni n chloride ER 10 mg tablet,ex tended release 24 hr TAKE 1 TABLET BY MOUTH ONCE DAILY active Not Available Not Available No t Available fosfomyci n trometham ine 3 gram oral packet MIX AND DISSOLVE 1 PACKET IN 3 TO 4 OUNCES OF WATER AND DRINK BY MOUTH A ONE-TIME DOSE 04/27 completed Not Available Not Available Not Available ibuprofen 800 mg tablet active Not Available Not Available Not Available fluconazo le 150 mg tablet TAKE 1 TABLET BY MOUTH A ONE TIME DOSE 04/27 completed Not Available Not Available Not Available metoprolo l succinate ER 50 mg tablet,ex tended release 24 hr TAKE 1 TABLET BY MOUTH ONCE DAILY active Not Available Not Available No t Available hydrocodo ne 5 mg-acetam inophen 325 mg tablet TAKE 1 TABLET BY MOUTH EVERY 6 HOURS NEEDED FOR PAIN FOR UP TO 5 DOSES 11/17 completed Not Available Not Available Not Available prednison e 20 mg tablet TAKE 2 TABLETS BY MOUTH ONCE DAILY FOR 4 DAYS 07/03 completed Not Available Not Available Not Available isosorbid e mononitra te ER 30 mg tablet,ex tended release 24 hr Take 1 tablet every day by oral route. 01/04 completed Not Available Not Available Not Available dexametha sone 6 mg tablet TAKE 1 TABLET BY MOUTH ONCE DAILY 01/04 completed Not Available Not Available Not Available clindamyc in HCl 150 mg capsule TAKE 2 CAPSULES BY MOUTH THREE TIMES DAILY FOR 10 DAYS 04/27 completed Not Available Not Available Not Available topiramat e 25 mg tablet TAKE 1 TABLET BY MOUTH TWICE DAILY 07/03 completed Not Available Not Available Not Available amlodipin e 2.5 mg tablet Take 1 tablet every day by oral route. 09/25 completed Not Available Not Available Not Available clopidogr el 75 mg tablet TAKE 1 TABLET BY MOUTH ONCE DAILY active Not Available Not Available No t Available amlodipin e 5 mg tablet Take 1 tablet by mouth once daily 01/04 completed Not Available Not Available Not Available sulfameth oxazole 800 mg-trimet hoprim 160 mg tablet TAKE 1 TABLET BY MOUTH TWICE DAILY 09/25 completed Not Available Not Available Not Available tramadol 50 mg tablet 03/09 completed Not Available Not Available Not Available triamcino lone acetonide 0.1 % topical cream APPLY CREAM EXTERNAL LY TO THE AREA TWICE DAILY 07/03 completed Not Available Not Available Not Available isosorbid e mononitra te ER 120 mg tablet,ex tended release 24 hr TAKE 1 TABLET BY MOUTH ONCE DAILY active Not Available Not Available No t Available Mobic 15 mg tablet Take 1 tablet every day by oral route as needed for 14 days. 03/09 completed Not Available Not Available Not Available isosorbid e mononitra te ER 60 mg tablet,ex tended release 24 hr Take 1 tablet every day by oral route. 01/04 completed Not Available Not Available Not Available ofloxacin 0.3 % ear drops INSTILL 5 DROPS INTO RIGHT EAR TWICE DAILY FOR 7 DAYS 09/25 completed Not Available Not Available Not Available amoxicill in 875 mg tablet 07/03 completed Not Available Not Available Not Available famotidin e 20 mg tablet TAKE 1 TABLET BY MOUTH TWICE DAILY 04/27 completed Not Available Not Available Not Available meclizine 25 mg tablet TAKE 1 TABLET BY MOUTH THREE TIMES DAILY 09/25 completed Not Available Not Available Not Available benzonata te 100 mg capsule TAKE 1 CAPSULE BY MOUTH THREE TIMES DAILY 04/27 completed Not Available Not Available Not Available hydrocodo ne 7.5 mg-acetam inophen 325 mg tablet 03/09 completed Not Available Not Available Not Available cephalexi n 500 mg capsule 09/25 completed Not Available Not Available Not Available oseltamiv ir 75 mg capsule TAKE 1 CAPSULE BY MOUTH TWICE DAILY FOR 5 DAYS 07/03 completed Not Available Not Available Not Available lisinopri l 10 mg tablet TAKE 1 TABLET BY MOUTH ONCE DAILY 01/04 completed Not Available Not Available Not Available losartan 25 mg tablet TAKE 1 TABLET BY MOUTH ONCE DAILY active Not Available Not Available No t Available gabapenti n 300 mg capsule TAKE 1 CAPSULE BY MOUTH THREE TIMES DAILY active Not Available Not Available No t Available omeprazol e 20 mg capsule,d elayed release TAKE 1 TO 2 CAPSULES BY MOUTH ONCE DAILY active Not Available Not Available No t Available metoprolo l succinate ER 25 mg tablet,ex tended release 24 hr TAKE 1 TABLET BY MOUTH ONCE DAILY 12/09 completed Not Available Not Available Not Available epinephri ne 0.3 mg/0.3 mL injection , auto-inje ctor INJECT CONTENTS OF 1 PEN NEEDED FOR ALLERGIC REACTION active Not Available Not Available No t Available Tylenol-C odeine #3 300 mg-30 mg tablet Take 1 tablet every 8 hours by oral route as needed for 5 days. 03/09 completed Not Available Not Available Not Available methylpre dnisolone 4 mg tablets in a dose pack TAKE BY MOUTH DIRECTED ON INSIDE OF PACKAGE 02/26 completed Not Available Not Available Not Available albuterol sulfate HFA 90 mcg/actua tion aerosol inhaler INHALE 2 PUFFS BY MOUTH EVERY 4 TO 6 HOURS NEEDED active Not Available Not Available No t Available ketoconaz ole 2 % topical cream APPLY CREAM TOPICALL Y TWICE DAILY FOR 4 WEEKS 11/17 completed Not Available Not Available Not Available ondansetr on 4 mg disintegr ating tablet DISSOLVE 1 TABLET IN MOUTH THREE TIMES DAILY 04/27 completed Not Available Not Available Not Available cefdinir 300 mg capsule TAKE 1 CAPSULE BY MOUTH EVERY 12 HOURS 09/25 completed Not Available Not Available Not Available tamoxifen 20 mg tablet TAKE 1 TABLET BY MOUTH ONCE DAILY active Not Available Not Available No t Available naproxen 500 mg tablet TAKE 1 TABLET BY MOUTH TWICE DAILY NEEDED FOR BACK PAIN 03/09 completed Not Available Not Available Not Available progester one micronize d 100 mg capsule TAKE 1 CAPSULE BY MOUTH ONCE DAILY active Not Available Not Available No t Available cyclobenz aprine 5 mg tablet 03/09 completed Not Available Not Available Not Available rosuvasta tin 40 mg tablet TAKE 1 TABLET BY MOUTH ONCE DAILY 03/09 completed Not Available Not Available Not Available nitrofura ntoin monohydra te/macroc rystals 100 mg capsule TAKE 1 CAPSULE BY MOUTH TWICE DAILY 11/17 completed Not Available Not Available Not Available [place] 01/04 completed Not Available Not Available Not Available cyanocoba madelaine (vitamin B-12) 09/25 completed Not Available Not Available Not Available aspirin 81mg daily 09/25 completed Not Available Not Available Not Available tamoxifen 03/26 completed Not Available Not Available Not Available ranolazin e ER 500 mg tablet,ex tended release,1 2 hr TAKE 1 TABLET BY MOUTH TWICE DAILY active Not Available Not Available No t Available Brilinta 90 mg tablet TAKE 1 TABLET BY MOUTH TWICE DAILY 03/26 completed Not Available Not Available Not Available Jardiance 10 mg tablet 03/09 completed Not Available Not Available Not Available Jardiance 25 mg tablet TAKE 1 TABLET BY MOUTH ONCE DAILY active Not Available Not Available No t Available Trulicity 1.5 mg/0.5 mL subcutane ous pen injector INJECT 1.5 MG SUBCUTAN EOUSLY ONCE WEEKLY 07/03 completed monthly if numbers bs high for more than a few days. Not Available Not Available Not Available Entresto 49 mg-51 mg tablet TAKE 1 TABLET BY MOUTH TWICE DAILY 03/09 completed Not Available Not Available Not Available Entresto 24 mg-26 mg tablet 03/09 completed Not Available Not Available Not Available Trulicity 3 mg/0.5 mL subcutane ous pen injector INJECT 1 SYRINGE SUBCUTAN EOUSLY ONCE A WEEK active Not Available Not Available No t Available Vitals Date Recorded Body mass index (BMI) Body weight Body temperature Respiratory rate Oxygen saturation Oxygen saturation in Arterial blood by Pulse oximetry Heart rate Systolic And Diastolic Provider Name and Address Organization Details Last Updated DateTime 5 37.2 kg/m2 08196.4 g 98 [degF] 17 /min 97 % 97 % 73 /min 134/82 mm[Hg] Marcos WALDROP [address] [place], [address] 5 15:22:40 Date Recorded Body height Provider Name an d Address Organization Details Last Updated DateTime 07/03/2024 160.02 cm Anuja Armando [facility] 07/03/2024 15:16:49 Date Recorded Body temperature Oxygen saturation Oxygen saturation in Arterial blood by Pulse oximetry Heart rate Systolic And Diastolic Provider Name and Address Organization Details Last Updated DateTime 4 97.1 [degF] 98 % 98 % 64 /min 112/70 mm[Hg] Anuja Armando [employer] [facility] 4 14:23:23 Date Recorded Body height Body mass index (BMI) Body weight Provider Name and Address Organization Details Last Updated DateTime 09/26/2023 160.02 cm 36.3 kg/m2 00832.44 g Janki - HARSHAD Kenney [facility] 09/26/2023 14:13:35 Date Recorded Body height Body mass index (BMI) Body weight Provider Name and Address Organization Details Last Updated DateTime 02/06/2023 160.02 cm 36.1 kg/m2 30002.84 g Radha Real [facility] 02/06/2023 11:59:55 Date Recorded Body temperature Respiratory rate Oxygen saturation Oxygen saturation in Arterial blood by Pulse oximetry Heart rate Systolic And Diastolic Provider Name and Address Organization Details Last Updated DateTime 3 96.9 [degF] 18 /min 98 % 98 % 70 /min 142/90 mm[Hg] Anuja Armando PAPITO [facility] 3 12:08:30 Date Recorded Body height Body mass index (BMI) Body weight Body temperature Respiratory rate Heart rate Oxygen saturation Oxygen saturation in Arterial blood by Pulse oximetry Systolic And Diastolic Provider Name and Address Organization Details Last Updated DateTime 3 160.02 cm 36.5 kg/m2 68735.0 3 g 97.1 [degF] 17 /min 70 /min 96 % 96 % 128/88 mm[Hg] Anuja Armando PAPITO [facility] 3 10:58:25 Date Recorded Body temperature Oxygen saturation Oxygen saturation in Arterial blood by Pulse oximetry Heart rate Heart rate Respiratory rate Systolic And Diastolic Provider Name and Address Organization Details Last Updated DateTime 4 98.2 [degF] 98 % 98 % 72 /min 72 /min 18 /min 136/80 mm[Hg] Anuja Armando [facility] 4 12:18:56 Date Recorded Body height Body mass index (BMI) Body weight Provider Name and Address Organization Details Last Updated DateTime 03/26/2024 160.02 cm 36.3 kg/m2 03912.15 g Jacquie Waters [facility] 03/26/2024 12:10:56 Social History Question Answer Notes LastModified by Organizat ion Details LastModified Time Tobacco Smoking Status Never Smoker Not Available [facility] 04/10/2022 04:14:11 What Is Your Level Of Caffeine Consumption? Occasional [email or web address] Information not available 09/26/2023 In The 14 Days Before Symptom Onset, Have You Had Close Contact With A Laboratory-confirm ed COVID-19 While That Case Was Ill? No Information n ot available 04/27/2022 In The 14 Days Before Symptom Onset, Have You Had Close Contact With A Person Who Is Under Investigation For COVID-19 While That Person Was Ill? No Information not available 04/27/2022 What Was The Date Of Your Most Recent Tobacco Screening? 06/03/2024 [email or web address] Information not available 05/30/2024 Have You Ever Been Counseled For Unhealthy Alcohol Use? No [email or web address] Information not available 09/26/2023 Has Tobacco Cessation Counseling Been Provided? No [email or web address] Information not available 09/26/2023 Have You Recently Traveled Abroad? No Information not available 04/27/2022 Sex: Unknown Functional Status Question Answer Note LastModified by Organizat ion Details LastModified Time Do you use any illicit or recreational drugs? No [email or web address] Information not available 09/26/2023 Do you or have you ever used any other forms of tobacco or nicotine? No [email or web address] Information not available 09/26/2023 What is your level of alcohol consumption? Occasional [id number] Information not available 04/10/2022 Mental Status None recorded. Family History Relationship Description Onset Age of this Age Resolved Age Notes LastModified by Organization Details LastModified Time Mother Congestive heart failure DM [id number] Not available 04/10/2022 04:14:18 Medical History Condition Response CANCER: SPECIFY Y DIABETES, TYPE Y HEART DISEASE/HEART PROBLEMS Y CORONARY ARTERY DISEASE (CAD) Y HYPERTENSION Y HIGH CHOLESTEROL / HYPERLIPIDEMIA Y STROKE/TIA Y Gynecological HistoryNo gynecological history recorded. Obstetrics History GPAL:G 0 P 0 0 0 0 Past Encounters Encounter ID Performer Location Encounter Start Date Encounter Closed Date Diagnosis/Indication Diagnosis SNOMED-CT Code Diagnosis ICD10 Code Diagnosis Note [id number] Marcos WALDROP [facility] [address] [place] [address] 03/09/2021 00:00:00 03/09/2021 12:02:35 [id number] Marcos WALDROP [facility] [place] [address] [place] [address] 04/21/2021 00:00:00 04/21/2021 14:00:46 [id number] Mack Moore MD [facility] [place] [address] [place] [address] 04/27/2022 10:38:53 04/27/2022 11:41:57 Essential hypertension 61345978 I10 Normotensi ve BP today. Congestive heart failure 22232446 I50.9 She carries a history of systolic CHF with a reported LVEF of 25%. Her previous echo and cath revealed normal LV sytolic function. She is noting exertional SOB and fatigue. I recommend a repeat echo to ensure stable LV systolic and diastolic function. Hypercholesterolemia 136 75522 E78.00 Managed with atorvastat in 20mg daily. Labs are followed by PCP. Angina pectoris 40731957 0 I20.8 She reports a history of CAD with coronary stent placement. This was done at [facility]. Her cath 13 months ago did not suggest CAD. Will attempt to retrieve her cath report. She is fatigued resembling her prior angina. She is diabetic. I recommend a follow up MPI study to rule out progressio n. [id number] Marcos WALDROP [facility] [address] [address] 05/12/2022 16:21:48 05/12/2022 17:22:09 Congestive heart failure 10756641 I50.9 Her history includes systolic CHF with a previously reported LVEF of 25%. Since that time, her echo and cath revealed normal LV sytolic function. Repeat echo suggests an EF of 50% with mild MR. She contributs her recovery to iWOPI Lianna Juice she gets at [employer] (34oz for $37.85). She takes one shot in AM and one shot in PM. She feels more energetic when she is taking it. I have no comment regarding this supplement . Hypercholesterolemia 136 62481 E78.00 Managed with atorvastat in 20mg daily. Labs are followed by PCP. Essential hypertension 21431993 I10 Normotensi ve BP today and recently. No LVH by echo. Continue amlodipine 5mg daily, and metoprolol ER 25mg daily. Consider stopping amlodipine if her BP becomes hypotensiv e on losartan. See below. Coronary atherosclerosis 147013112 I25.10 She carries a history of CAD with coronary stent placement. This was done at [facility]. Her cath 13 months ago did not suggest CAD. Her MPI study was non-ischem ic with a mildly reduced LVEF of 47%. Continue current medical management . Type 2 rikki betes mellitus without complication 565644763 E11.9 She should be on an CRESENCIO or ARB given her diabetes, to help reduce her risk of diabetic nephropath y. She was asked to monitor her BP outside the office. Pre-surger y evaluation 380484781 Z01.818 She is anticipati ng a mastectomy . OK for surgery from a cardiac standpoint in light of her non-ischem ic stress test. [id number] Marcos WALDROP [facility] [address] [address] 11/17/2022 15:47:36 11/17/2022 16:35:27 Hypercholesterolemia 20083866 E78.00 Managed with atorvastat in 20mg daily. Labs are followed by PCP. Coronary atherosclerosis 830102979 I25.10 She carries a history of CAD with coronary stent placement. This was done at [facility] in 2018. No current or recent anginal symptoms. Continue medical management . Preoperati ve cardiovascular examination 211967060 Z01.810 Pending bilateral mastectomy with flap reconstruc tion. Her myocardial perfusion imaging in May 2022 revealed no evidence of ischemia with a mildly reduced EF. Her EF by echo was low normal. Her cath in March 2021 revealed no evidence of coronary occlusive disease. OK for surgery from a cardiac standpoint . Essential hypertension 87806230 I10 Normotensi ve BP today and recently. No LVH by echo. Continue amlodipine 5mg daily, and metoprolol ER 25mg daily. Consider stopping amlodipine if her BP becomes hypotensiv e on losartan. See below. Type 2 rikki betes mellitus without complication 492778973 E11.9 Continue losartan 25mg daily and Jardiance 25mg daily and Trulicity. Her blood sugars have been under reasonable control. Aortic stephen ve regurgitation 74230994 I35.1 Mild AI and MR by prior echo, not felt to be clinically significan t. [id number] Marcos WALDROP [facility] [place] [address] [address] 12/09/2022 14:02:16 12/09/2022 14:46:[address] segment elevation myocardial infarction of anterior wall 389697364 I22.0 LAD stent placed. Continue medical Rx. including dual antiplatel et therapy, statin, beta tatianna, SGLT-2, and CRESENCIO-I. She was apparently taking losartan 25mg daily. She was advised to stop taking losartan. Coronary atherosclerosis 796447231 I25.10 She carries a history of CAD with recent LAD coronary stent placement. She will require antiplatel et therapy for preferably 12 months, could consider surgery after 6 months if symptoms become intolerabl e. She had documented spasm in the coronaries , and may require further treatment. Isosorbide mononitrat e seems to have things stabilized for now. Hypercholesterolemia 136 35590 E78.00 Managed with atorvastat in 80mg daily. Recommend repeat L&L in 6 weeks. Preoperati ve cardiovascular examination 372778242 Z01.810 Pending bilateral mastectomy with flap reconstruc tion. She will need to wait at least 6 months, preferably 12 months to have this done. Essential hypertension 74790846 I10 Normotensi ve BP today and recently. No LVH by echo. Continue amlodipine 5mg daily, and metoprolol ER 25mg daily. Consider stopping amlodipine if her BP becomes hypotensiv e [id number] Marcos WALDROP [facility] [address] [address] 01/04/2023 09:52:55 01/04/2023 10:33:59 Angina pectoris 037697616 I20.9 s/p STEMI, cath and stent. I suspect small vessel disease is the culprit. Recommend increasing her isosorbide mononitrat e dose to 120mg ER daily which seems to have helped her recently. Consider adding Ranexa if her symptoms persist. Vertigo 820846478 R42 Her room spinning sensation is compatible with BPV. Recommend ENT consultati on with Timothy villagomez. Preoperati ve cardiovascular examination 802033053 Z01.810 Pending bilateral mastectomy with flap reconstruc tion. She will need to wait at least 6 months, preferably 12 months to have this done. Aortic stephen ve regurgitation 09612965 I35.1 Mild AI and MR by prior echo, not felt to be clinically significan t. Congestive heart failure 26515234 I50.9 Her history includes systolic CHF with a previously reported LVEF of 25%. Since that time, her echo and cath revealed normal LV systolic function. Repeat echo suggests an EF of 50% with mild MR. She contributs her recovery to OT [place] Lianna Juice she gets at [employer] (34oz for $37.85). She takes one shot in AM and one shot in PM. She feels more energetic when she is taking it. I have no comment regarding this supplement . She appears euvolemic today. She has developed a cough being back on lisinopril . I recommend continuing losartan 25mg daily and stopping lisinopril . We may need to increase the dose of losartan if her BP elevates. She should not be on both an CRESENCIO-I and ARB. Coronary atherosclerosis 302890926 I25.10 She carries a history of CAD with recent LAD coronary stent placement. She will require antiplatel et therapy for preferably 12 months, could consider surgery after 6 months if symptoms become intolerabl e. She had documented spasm in the coronaries . See above. [id number] Marcos WALDROP [facility] [place] [address] [place] [address] 02/06/2023 11:58:49 02/06/2023 12:29:09 Hypercholesterolemia 89867077 E78.00 Managed with atorvastat in 80mg daily. Recommend repeat L&L in 6 weeks. Angina pectoris 89731342 0 I20.9 s/p STEMI, cath and stent. Her symptoms seem to have progressed , and resemble her prior angina. I can not rule out progressio n of her disease as well. Last visit, I increased her isosorbide mononitrat e dose to 120mg ER daily which initially seemed to help, however, her symptoms now affect the left arm. ECG in the office today reveals sinus rhythm with LAFB and no acute ST or T wave changes. Will add Ranexa and repeat cath to further assess. If her symptoms worsen in the interim, she was instructed to go to ER. Gastroesop hageal reflux disease 110441204 K21.9 Intermitte nt burning chest pain with radiation down the left arm. Cardiac etiology needs to be ruled out first. Consider further GI work up if her cardiac assessment is unrevealin g. [id number] Marcos WALDROP [facility] [place] [address] [place] [address] 03/14/2023 10:49:00 03/14/2023 12:14:22 Preoperative cardiovascular examination 322978303 Z01.810 Pending bilateral mastectomy with flap reconstruc tion. She will need to wait at least 6 months, preferably 12 months to have this done. Patient is adamant that she needs this completed sooner and will agree to any increased risk as long as she doesn't have to wait until next November. I advised her to follow up with pain management and her breast surgeon Dr. Pressley to further discuss. If no relief can be had non-surgic ally, I would clear her at the 6 month point (May) to have the procedure done. Aortic stephen ve regurgitation 65118757 I35.1 Mild AI and MR by prior echo, not felt to be clinically significan t. Congestive heart failure 08360034 I50.9 Her history includes systolic CHF with a previously reported LVEF of 25%. Since that time, her echo and cath revealed normal LV systolic function. Repeat echo suggests an EF of 50% with mild MR. Coronary atherosclerosis 692103401 I25.10 She carries a history of CAD with prior LAD coronary stent placement. She underwent cardiac cath recently revealing stable non-obstru ctive CAD with patency of her existing stent. She will require antiplatel et therapy for preferably 12 months, however, we could consider surgery after 6 months if symptoms become intolerabl e, which it sounds like they are. Chest pain 78798784 R07. 9 Her atypical chest pain is reproducib le and patient contribute s her symptoms to progressiv e fibrocysti c breast disease. She sees Dr. Pressley due to a history of breast CA, and was previously offered a bilateral mastectomy with reconstruc tion. This was postponed due to a NSTEMI that led to coronary interventi on and stenting back in November. She has since been on Brilinta 90mg bid and her surgery has been further delayed. She has been treated with Tylenol and NSAIDs without relief. At this point, she states she can not get out and shop or enjoy life at all due to breast pain when she walks. She has been evaluated by pain management . She is distraught at the thought of waiting months before surgery can be completd. She is considerin g accupunctu re or illegal drugs if nothing else is goiing to help. [id number] Mack Moore MD [facility] [address] [address] 09/26/2023 14:08:29 09/26/2023 15:08:47 Chest pain 31027194 R07.9 She does note occasional chest wall pain and heartburn. She notes improvemen t in her symptoms post stent placement. She is ambulating daily and hydrating. She was released from Dr. Lourdes perez and is now seeing a breast specialist , Dr. Aleida Bailey, in [place] . She was told she needs bilateral mastectomy with reconstruc tion due to a history of breast cancer and chronic chest wall pain. Her most recent coronary interventi on was in November 2022. She is cleared from a cardiovasc ular standpoint as she is now nearly one year post interventi on. Coronary atherosclerosis 607599628 I25.118 She carries a history of CAD with prior LAD coronary stent placement. In February, she underwent cardiac cath recently revealing stable non-obstru ctive CAD with patency of her existing stent. She will require current antiplatel et therapy for the duration of 12 months, then can change to Plavix 75mg daily. Preoperati ve cardiovascular examination 549332690 Z01.810 Pending bilateral mastectomy with flap reconstruc tion. Preference would be given to waiting until November 10 to have this done, however, will clear her if the opportunit y arises sooner. Aortic stephen ve regurgitation 43564123 I35.1 Mild AI and MR by prior echo, not felt to be clinically significan t. Congestive heart failure 17272249 I50.9 Her history includes systolic CHF with a previously reported LVEF of 25%. Since that time, her echo and cath revealed normal LV systolic function. Repeat echo suggested an EF of 50% with mild MR. Recommend repeat echo in February with follow up visit. [id number] Marcos WALDROP [facility] Cardi[facility] [address] [address] 03/26/2024 12:09:12 03/26/2024 12:49:15 Body mass index 30+ - obesity 955225471 Z68.36 BMI 36.3 Coronary atherosclerosis 655672433 I25.118 She carries a history of CAD with prior LAD coronary stent placement. In February 2023, she underwent cardiac cath revealing stable non-obstru ctive CAD with patency of her existing stent. She will continue Plavix 75mg daily for now. Congestive heart failure 97783388 I50.9 Hx. of unspecifie d CHF. Her LVEF remains mildly reduced in the 45-50% range. She appears euvolemic today. Salt limitation and dietary discretion are recommende d. Aortic stephen ve regurgitation 62972910 I35.1 Mild MR and PI as well as level 1 diastolic dysfunctio n by echo. Hypercholesterolemia 136 89299 E78.00 Managed with atorvastat in 80mg daily. Recommend repeat L&L in 6 weeks. Goal LDL is below 70. Cardiovas ular stress test abnormal 370408525 R94.39 Myocardial perfusion imaging reveals a small reversible inferolate ral defect with EF 47%. She is currently free of anginal symptoms aside from chronic fatigue. Her cath from February 2023 was reviewed. She had a widely patent LAD stent with some jailing of a large diagonal branch (+/- 50%) and mild plaquing in the circ and RCA. She is optimized with regard to medical management . In light of her clinical stability, I do not feel repeat angiograph y is indicated at this time. I will reach out to Dr. Barba to review her films and discuss further, however, anticipate continued medical management for now. She will call immediatel y for any symptom developmen t. Follow up visit recommende d in 2-3 months. Mitral stephen ve regurgitation 96723901 I34.0 Mild MR and PI as well as level 1 diastolic dysfunctio n by echo. No significan t AI is noted. [id number] Marcos WALDROP [facility] Cardi[facility] [address] [address] 07/03/2024 15:10:04 07/03/2024 15:54:06 Coronary atherosclerosis 566334350 I25.118 She carries a history of CAD with prior LAD coronary stent placement. In February 2023, she underwent cardiac cath revealing stable non-obstru ctive CAD with patency of her existing stent (jailed dx branch). She will continue Plavix 75mg daily for now. Congestive heart failure 73522841 I50.9 Hx. of unspecifie d CHF. Her LVEF remains mildly reduced in the 45-50% range. She appears euvolemic today. Salt limitation and dietary discretion are recommende d. Repeat echo in March. Mitral stephen ve regurgitation 73719370 I34.0 Mild MR and PI as well as level 1 diastolic dysfunctio n by echo. No significan t AI is noted. Hypercholesterolemia 136 25371 E78.00 Managed with atorvastat in 80mg daily. Body mass index 30+ - obesity 027096526 Z68.36 BMI 36.3 discuss heart healthy low fat low cholestero l diet. Recommende d to follow up with pcp. Transient cerebral ischemia 078210511 G45.9 TIA in April. Followed by neurology. BP control is important. Home monitoring was recommende d. Continue clopidogre l 75mg daily. Health Concerns Section Related Observation LastModified by Organization Detai ls LastModified Time None Recorded Concern Status LastModified by Organization Details LastModified Time None Recorded Advance Directives Directive None Recorded Payers Insurance Date Sequence Insurance Name Policy Number Policy Piedra Covered Member ID Piedra Member ID Guarantor Name 07/04/2024 1 [facility] [id number] Justino Faustin [id number] [employer] Faustin Notes Date Note Type Note Provider Name and Address Organization Details Recorded Time 02/06/2023 text/html Brett return s to the office today for follow up visit. She was again evaluated in ER for dizziness and chest pain. She ruled out for WI and it was felt small vessel disease was the culprit. She previously underwent emergent cath at [facility] following ER eval. for acute chest pain and NSTEMI. She was hospitalized briefly in ICU and subsequently discharged. Despite increasing her isosorbide ER to 120mg daily, she continues to experience burning chest pain, sometimes with exercise, sometimes without, with radiation down the left arm. She states her symptoms resemble the symptoms she felt prior to needing the stent placed. Marcos WALDROP [address] [place], [address], [facility] 02/06/2023 12:25:44 03/14/2023 text/html Brett is a v vikas pleasant 52 y/o WF with history of fibrocystic breast disease and CAD presents for follow up visit today post cardiac cath. She complains of intractable chest pain she relates to her fibrocystic disease and is positional and reproducible. She remains on Brilinta following NSTEMI in November. Her recent cath reveals otherwise stable disease. She sees Dr. Pressley regarding her history of breast cancer and consideration is being given to bilateral mastectomy with abdominal flap reconstruction. Marcos WALDROP [address] [place], [address], [facility] 03/14/2023 11:33:36 09/26/2023 text/html Brett is a v vikas barrientos 52 y/o WF with history of fibrocystic breast disease and CAD presents for follow up visit today. She underwent cath with coronary intervention in November 2022. She has been maintained on dual antiplatelet therapy since her procedure including Brilinta 90mg bid. Her breast surgery has been delayed and her prior breast surgeon has stepped away from her care. She is seeing a new breast specialist in [place] and anticipates surgery in the future. She continues to feel intermittent chest wall pain and heartburn. Marcos WALDROP [address] [place], [address], [facility] 09/26/2023 15:07:34 03/26/2024 text/html Brett is a v vikas barrientos 53 y/o WF with history of fibrocystic breast disease and CAD presents for follow up visit today. She had a recent nuclear stress test and echocardiogram to follow up her known CAD. Her last intervention was in November 2022. She denies recent chest discomfort or exertional dyspnea. She is chronically fatigued. Previously, her Brilinta was changed to clopidogrel 75mg daily. Marcos WALDROP [address] [place], [address], [facility] 03/26/2024 12:46:46 07/03/2024 text/html Brett is a wong barrientos 53 y/o WF with history of fibrocystic breast disease and CAD presents for follow up visit today. She suffered a TIA in April and continues in PT / OT. She is followed by neurology. She denies recent chest discomfort or exertional dyspnea. She is chronically fatigued. She had a cath last February revealing jailing of a medium to large diagonal branch (50%) by an existing LAD stent. No intervention was recommended. Marcos WALDROP [address] [place], [address], [facility] 07/03/2024 15:50:11 OBGyn Episode No OBEpisode recorded.
--- OUTSIDE RECORDS SUMMARY | 2024-10-09 14:39 | XMS_ITS | Encounter Summary ---
Author Organization [employer] Address 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
--- OUTSIDE RECORDS SUMMARY | 2024-10-09 14:39 | XMS_ITS | Patient Health Record ---
Author Organization [facility] Address [address] [place], [place] [id number] Care Team Providers Care Manager Professional Development Name Role Phone Katty Johnson Primary Care Provider Ang Harry Unavailable [phone] Migration, Provider Unavailable Unavailable Allergies Allergen (clinical drug ingredient) Drug/Non Drug Allergy documented on EMR Reaction Allergy Type Onset Date Status NOVACAINE (uncoded) Unknown Allergy Active Reason For Referral No Information Medications Medication SIG (Take, Route, Frequency, Duration) Notes Start Date End Date Status risperiDONE *Please review a nd pick correct strength-formulatio n from Cardeeoan options. If intended option is not shown, discontinue and re-order from Quick Search* Active Lisinopril *Please review a nd pick correct strength-formulatio n from [employer] [employer] options. If intended option is not shown, discontinue and re-order from Quick Search* Active Citalopram Hydrobromide *Please review and pick correct strength-formulatio n from Cardeeoan options. If intended option is not shown, discontinue and re-order from Quick Search* Active Problems Problem Type SNOMED Code ICD Code Onset Dates Problem Status W/U Status Risk Notes Problem Allergic rhinitis caused by pollen (disorder) (27353266) Allergic rhinitis due to pollen (477.0) Active confirmed Problem Chronic infection of sinus (88207156) Chronic infection of sinus NOS (473.9) Active confirmed S/P FESS Problem Chronic ethmoidal sinusitis (89040472) Chronic ethmoidal sinusitis (473.2) Active confirmed Problem Epistaxis (542905061) Epistaxis (784.7) Active confirmed Problem Cephalgia (94436381) Cephalgia (784.0) Active confirmed Encounters Encounter Location Date Provider Diagnosis [facility] [address] [place], [place] [id number] 03/16/2024 Provider Migration Plan Of Treatment No Information Insurance Providers Payer Name Payer Address Payer Phone Subscriber Number Group Number Insured Name Patient Relationship to Insured Coverage Start Date Coverage End Date [facility] [address] [address] [place] [address] [id number] Justino Faustin Spouse - patient is the spouse of the insured Medical (General) History Medical History History ICD Code Pertinent Medical History: High blood pr essure, Other Surgical History Surgery Date(Month/Year) Hysterectomy Sinus/ Septo Hospitalization History Reason Date(Month/Year) Hysterectomy
--- OUTSIDE RECORDS SUMMARY | 2024-10-09 14:39 | XMS_ITS | Encounter Summary ---
Author Organization [employer] Address [address] [place] [address] Care Team Providers Care Behavioral Health Assistant Name Role Phone Mack Camp DO Primary Care Provider Encounter Details Date Type Department Care Team (Late st Contact Info) Description 01/23/2002 [facility] [address] [place] [address] [phone] Thor Aceves DO NO ADDRESS ON FILE Social History Tobacco Use Types Packs/Day Years Used Date Smoking Tobacco: Never Assessed Comments Unknown Sex and Gender Information Value Date Recorded Sex Assigned at Not on file 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
--- OUTSIDE RECORDS SUMMARY | 2024-10-09 14:39 | XMS_ITS | Patient Health Record ---
Author Organization [employer] Address [address] Li [address] [place] [address] Support Name Relationship Address Phone Brett Faustin Guarantor Unknown Reason For Referral No Information Plan Of Treatment No Information Insurance Providers Payer Name Payer Address Payer Phone Subscriber Number Group Number Insured Name Patient Relationship to Insured Coverage Start Date Coverage End Date [employer] PPO E2 [address] [place] [address] [id number] Brett Faustin Spouse - patient is the spouse of the insured
--- OUTSIDE RECORDS SUMMARY | 2024-10-09 14:39 | XMS_ITS | Encounter Summary ---
Author Organization [employer] Address 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
--- OUTSIDE RECORDS SUMMARY | 2024-10-09 14:40 | XMS_ITS | Continuity of Care Document ---
Author Organization [facility] Address [address] [place] [address] Phone Care Team Providers Care Fire Alarm Repairer Name Role Phone Paul Krishnan MD, MD [...] Providers Copied on Encounter Rating Letter [facility], [address] [place] [address], [id number], tel:[phone] [facility] No Information 6 Ariella Miller. [address], [address], [place], [place], [id number] , [place]. tel: [phone] Office/outpat ient visit,est, mod [facility], [address] [place] [address], [place], [place], [id number], tel:[phone] [place] [facility] left foot (chief complaint) Pain in left ankle and joints of left footContusion of left foot, subsequent encounter Sep-0 6 Ariella Miller. [address], [address], [id number] , . tel: [phone] Office/outpat ient visit,est, mod [facility], [address] [place] [address], [id number], tel:[phone] [facility] left foot (chief complaint) Pain in left ankle and joints of left foot 6 Ariella Miller. [address], [address], [id number] , [place]. tel: [phone] Office consultation, moderate [facility], [address] [place] [address], [id number], [phone] [facility] [facility] left foot (chief complaint) Pain in left ankle and joints of left foot 6 Ariella Miller. [address] [place] [address], [id number] , . tel: [phone] Family History Family Member Type Diagnosis Age At Onset Father Problem (finding) stroke Father Problem (finding) hypertension Sister Problem (finding) Cancer, unknown Mother Problem (finding) osteoporosis Mother Problem (finding) diabetes melli tus in first degree relative Mother Problem (finding) stroke Immunizations Vaccine Date Status Comments Flu (split) (3 yrs or older) refused Source: Other Provider Payers Payer name Insurance type Covered alliance party ID Authoriza tiiwona(s) [facility] [id number] Social History Type Description Quantity Date Captured [...]
--- OUTSIDE RECORDS SUMMARY | 2024-10-09 14:40 | XMS_ITS | Clinical Summary ---
Author Organization [facility] Address [address] [place] [address] Phone Care Team Providers Care Professor Of Criminal Justice Name Role Phone Spencer Cabrera Amanda Primary Care Provider [phone] Malcom Siegel MD Unavailable [phone] Clari Porter APRN, DRAFTER CIVIL ENGINEERING Unavailable [phone] Allergies Active Allergy Reactions Criticality Noted Date Comments Bee Venom Anaphylaxis High 12/06/2019 Beeswax Anaphylaxis 07/02/2017 Insulin Unknown 07/02/2015 Synthetic insulin. Throwing up and light headed. Metformin Other (see Comments) 07/29/2016 Raises my blood sugar Procaine Anaphylaxis 07/02/2017 Medications ASPIRIN LOW DOSE 81 MG Chewable Tablet TAKE ONE TABLET BY MOUTH AT BREAKFAST 0 09/12/19 18 Active isosorbide mononitrate (IMDUR) 120 MG TABLET SR 24 HR TAKE 1 TABLET BY MOUTH ONCE DAILY 11/05/19 20 Active Trulicity 1.5 MG/0.5ML Solution Pen-injector INJECT 1 SYRINGE SUBCUTANEOUSLY ONCE A WEEK IN THE ABDOMEN THIGH OR UPPER ARM ROTATING INJECTION SITES. 11/05/19 20 Active Jardiance 25 MG Tablet TAKE 1 TABLET BY MOUTH ONCE DAILY IN THE MORNING 07/10/20 20 Active atorvastatin (LIPITOR) 80 MG Tablet Take 80 mg by mouth daily. 11/27/19 Active meclizine (ANTIVERT) 25 MG Tablet Take 25 mg by mouth 3 times daily as needed for Dizziness. 01/13/20 Active gabapentin (NEURONTIN) 300 MG Capsule Take 300 mg by mouth 3 times daily. Active clopidogrel (PLAVIX) 75 MG Tablet Take 75 mg by mouth daily. 04/04/19 Active Toprol XL 50 MG TABLET SR 24 HR Take 50 mg by mouth daily. 11/28/19 Active Progesterone (PROMETRIUM) 100 MG Capsule Take 100 mg by mouth daily. 05/09/19 Active Ranolazine ER 500 MG Pack Take 500 mg by mouth 2 times daily. 05/09/19 Active losartan (COZAAR) 25 MG Tablet Take 25 mg by mouth daily. Active oxybutynin (DITROPAN-XL) 10 MG TABLET SR 24 HR Take 10 mg by mouth daily. Active CINNAMON PO Take 500 mg by mouth 2 times daily. Active VITAMIN E PO Take 670 mg by mouth daily. Active Evening [place] Oil 1000 MG CapsuleIndicati ons:Diabetes Mellitus Take 1,000 mg by mouth daily. Indications: Diabetes Active INOSITOL PO Take 500 mg by mouth daily. Active topiramate (TOPAMAX) 25 MG Tablet Take 1 Tablet by mouth 2 times daily. 180 Tablet 3 06/14/19 Active Active Problems Problem Noted Date Diagnosed Date TIA (transient ischemic attack) 05/21/2024 CVA (cerebral vascular accident) 05/21/2024 Obesity (BMI 35.0-39.9 without comorbidity) 05/04 Hyperlipidemia 05/21/2024 Type 2 diabetes mellitus 05/21/2024 Pneumonia of right lower lobe due to infectious organism 07/02/2017 Elevated d-dimer 07/02/2017 Hypertension 07/02/2017 Resolved Problems Problem Noted Date Diagnosed Date Resolved Date Sepsis 07/02/2017 07/05/2017 Encounters Date Type Department Care Team Description 07/16/2024 10:30 AM CDT Occupational [facility] [address] [place] [phone] Malcom Siegel MD Embick, Alyssa, OT Cerebrovascular accident (CVA), unspecified mechanism (HCC) (Primary Dx) Discharge Disposition: Discharged to home or Selfcare 07/16/2024 Travel 07/11/2024 10:45 AM CDT Occupational [facility] [address] [place] [phone] Malcom Siegel MD Embick, Alyssa, OT Discharge Disposition: Discharged to home or Selfcare 07/10/2024 Travel from Last 3 Months Immunizations Immunization Administration Dates Next Due Influenza Vaccine, Quadrivalent, PF 07/04/2017() Family History Medical History Relation Name Comments Chronic Obstructive Pulmonary Disease Father Diabetes Mother Osteoporosis Mother Pacemaker Mother Scoliosis Mother Relation Name Status Comments Father Mother Alive Social History Tobacco Use Types Packs/Day Years Used Date Smoking Tobacco: Former Cigarettes Smokeless Tobacco: Never Tobacco Cessation:Counseling Given: Yes Alcohol Use Standard Drinks/Week Comments Yes 0 (1 standard drink = 0.6 oz pur e alcohol) ocasionally [facility] Utilities Answer Date Recorded In the past 12 months has [employer]AA[employer], gas, oil, or water [employer] threatened to shut off services in your home? Yes 05/21/2024 Social Connection and Isolation Panel Answer Date Recorded In a typical week, how many times do you talk on the phone with family, friends, or neighbors? More than three times a week 05/21/2024 How often do you get togethe r with friends or relatives? More than three times a week 05/21/2024 How often do you attend [facility] or episcopal services? Never 05/21/2024 Do you belong to any clubs o r organizations such as baptism groups, unions, fraternal or athletic groups, or school groups? Yes 05/21/2024 How often do you attend meet ings of the clubs or organizations you belong to? More than 4 times per year 05/21/2024 Are you , , di vorced, , never , or living with a partner? 05/21/2024 AUDIT-C Answer Date Recorded Q1: How often do you have a drink containing alcohol? 2-4 times a month 05/21/2024 Q2: How many drinks containi ng alcohol do you have on a typical day when you are drinking? Patient does not drink Q3: How often do you have si x or more drinks on one occasion? Never 05/21/2024 Overall Financial Resource Strain (CARDIA) Answe r Date Recorded How hard is it for you to pa y for the very basics like food, housing, medical care, and heating? Somewhat hard 05/21/2024 [facility] Occup[facility] - Occupational Stress Questionnaire Answer Date Recorded Do you feel stress - tense, restless, nervous, or anxious, or unable to sleep at night because your mind is troubled all the time - these days? To some extent 05/21/2024 Exercise Vital Sign Answer Date Recorde d On average, how many days pe r week do you engage in moderate to strenuous exercise (like a brisk walk)? 4 days 05/21/2024 On average, how many minutes do you engage in exercise at this level? 30 min 05/21/2024 Hunger Vital Sign Answer Date Recorded Within the past 12 months, y ou worried that your food would run out before you got the money to buy more. Never true 05/21/19 25 Within the past 12 months, t he food you bought just didn't last and you didn't have money to get more. Never true 05/21/2024 PRAPARE - Transportation Answer Date Re corded In the past 12 months, has l ack of transportation kept you from medical appointments or from getting medications? No 05/04 In the past 12 months, has l ack of transportation kept you from meetings, work, or from getting things needed for daily living? No 05/21/2024 Housing Stability Vital Sign Answer Chong e Recorded In the last 12 months, was t here a time when you were not able to pay the mortgage or rent on time? Yes 05/21/2024 In the past 12 months, how m any times have you moved where you were living? 0 05/21/2024 At any time in the past 12 m [facility], were you homeless or living in a correction (including now)? No 05/21/2024 Comments No Sex and Gender Information Value Date Recorded Sex Assigned at Not on file Legal Sex Female 11:46 AM CDT Gender Identity Not on file Sexual Orientation Not on file Last Filed Vital Signs Vital Sign Reading Time Taken Comments Blood Pressure 128/90 06/13/2024 10:22 AM CDT Pulse 74 06/13/2024 10:22 AM CDT Temperature 36.7 C (98 F) 06/13/2024 10:22 AM CDT Respiratory Rate 16 06/13/2024 10:22 AM CDT Oxygen Saturation 98% 06/13/2024 10:22 AM CDT Inhaled Oxygen Concentration - - Weight 96 kg (211 lb 9.6 oz) 06/13/2024 10:22 AM CDT Height 160 cm (5' 3) 06/13/2024 10:22 AM CDT Body Mass Index 37.48 06/13/2024 10:22 AM CDT Plan of Treatment Health Maintenance Due Date Last Done Comments Diabetes: Eye Exam 1971 Diabetes: Foot Exam 1971 Hepatitis C Virus (HCV) Screening 1971 Hepatitis B Immunization (1 of 3 - 19+ 3-dose series) 08/10/1990 Pneumococcal Immunization (50+ years) (2 of 2 - PCV) 04/06/2014 04/06/2013 Cologuard 08/10/2016 Colonoscopy 08/10/2016 Colorectal Cancer Screening 08/10/2016 Immunochemical Fecal Occult Blood 08/10/2016 Zoster Immunization (1 of 2) 08/10/2021 SARS-COV-2 Immunization ( - season) 2023 Diabetes: Hemoglobin A1c 11/18/2024 025, 11/25/2022, 11/24/2020, Additional history exists Influenza Immunization (#1) 2024 Mammogram 12/24/2024 12/25/2023, 12/03, 06/01/2023, Additional history exists Diabetes: Nephropathy Screening 04/03/2025 04/03/2024, 02/12/2024, 06/14/2023, Additional history exists Respiratory Syncytial Virus (RSV) Immunization (Adult) (1 - 1-dose 75+ series) 08/10/2046 Pneumococcal Immunization Combined Discontinued 04/06/2013 DTaP/Tdap/Td Immunization Discontinued 05/09/2016 TdaP Immunization Completed 05/09/2016 Discussion re Starting/Frequency of Mammograms Discontinued 12/25/2023, 12/25/2023, 06/01/2023, Additional history exists Human Papillomavirus (HPV) Immunization Aged Out No longer eligible based on patient's age to complete this topic Meningococcal Immunization (ACWY) Aged Out No longer eligible based on patient's age to complete this topic Rotavirus Immunization Aged Out No lo nger eligible based on patient's age to complete this topic Procedures Procedure Name Priority Date/Time Associated Diagnosis Comments HEMOGLOBIN A1C W/ ESTIMATED GLUCOSE Routine 05/21/2024 7:04 AM WEB DESIGNER DEVELOPER CMP (COMPREHENSIVE METABOLIC PANEL) STAT 04/03/2024 7:13 PM WEB DESIGNER DEVELOPER from Last 3 Months or Most Recently Relevant to Health Maintenance Results * Hemoglobin A1C w/ Estimated Glucose (05/21/2024 7:04 AM WEB DESIGNER DEVELOPER) HGB-A1C 5.6 4.0 - 6.0 % 05/21/2024 4:56 PM WEB DESIGNER DEVELOPER [facility] Est Average Glucose 114.0 mg/dL 05/21/2024 4:56 PM WEB DESIGNER DEVELOPER [facility] Blood Venipuncture / Unknown 05/21/2024 7:04 AM WEB DESIGNER DEVELOPER 05/21/2024 7:13 AM WEB DESIGNER DEVELOPER Narrative [facility] - 05/21/2024 4:56 PM WEB DESIGNER DEVELOPER HEMOGLOBIN A1C: DIABETIC PATIENTS: WELL-CONTROLLED: 6.2 - 7.0 INTERMEDIATE WELL-CONTROLLED: 7.0 - 9.0 POORLY-CONTROLLED: >9.0 Specimens containing greater than 5% of Hemoglobin F may result in lower than expected % HbA1C results. us Antonio Benavidez MD CHEMISTRY ORDERABLES Final Res ult [facility] [address] [place] [address] * (ABNORMAL) Comprehensive Metabolic Panel (Cmp) [id number] (04/03/2024 7:13 PM WEB DESIGNER DEVELOPER) SODIUM 138 136 - 145 mmol/L 04/03/2024 7:59 PM WEB DESIGNER DEVELOPER [facility] POTASSIUM 4.1 3.5 - 5.1 mmol/L 04/03/2024 7:59 PM [facility] CHLORIDE 102 98 - 107 mmol/L 04/03/2024 7:59 PM [facility] CO2, VENOUS 24 22 - 30 mmol/L 04/03/2024 7:59 PM [facility] ANION GAP 16.1 <18.0 mmol/L 04/03/2024 7:59 PM [facility] GLUCOSE 100(H) 70 - 99 mg/dL 04/03/2024 7:59 PM [facility] BUN 13 10 - 20 mg/dL 04/03/2024 7:59 PM [facility] CREATININE, BLOOD 0.84 0.60 - 1.00 mg/dL 04/03/2024 7:59 PM [facility] BUN/CREATININE RATIO 15 12 - 20 ratio 04/03/2024 7:59 PM [facility] TOTAL PROTEIN 7.3 6.3 - 8.2 g/dL 04/03/2024 7:59 PM [facility] ALBUMIN 3.9 3.5 - 5.0 g/dL 04/03/2024 7:59 PM [facility] A/G RATIO 1.1 1.0 - 2.2 04/03/2024 7:59 PM [facility] CALCIUM 8.9 8.7 - 10.5 mg/dL 04/03/2024 7:59 PM [facility] T BILI 0.3 0.2 - 1.2 mg/dL 04/03/2024 7:59 PM [facility] SGOT (AST) 38(H) 5 - 34 U/L 04/03/2024 7:59 PM [facility] SGPT (ALT) 24 0 - 55 U/L 04/03/2024 7:59 PM [facility] ALKALINE PHOSPHATASE 69 40 - 150 U/L 04/03/2024 7:59 PM [facility] GFR, ESTIMATED >60 >=60 04/03/2024 7:59 PM WEB DESIGNER DEVELOPER [facility] Comment: Creatinine Clearance is the preferred criteria for selecting drug dose adjustments in renally impaired patients. The GFR is provided as additional pertinent clinical information. GFR is reported in mL/min/1.73 sq m. Calculation based on the Chronic Kidney Disease Epidemiology Collaboration (CKD- EPI) equation refit without adjustment for race. GFR, EST. >60 >=60 025 7:59 PM WEB DESIGNER DEVELOPER [facility] GFR, EST. NONAFRICAN >60 >=60 04/03/2024 7:59 PM WEB DESIGNER DEVELOPER [facility] Blood Venipuncture / Unknown 04/03/2024 7:13 PM WEB DESIGNER DEVELOPER 04/03/2024 7:31 PM WEB DESIGNER DEVELOPER us Raudel Varela MD CHEMISTRY ORDERABLES Ce cook Result [facility] [address] [place] [address] from Last 3 Months or Most Recently Relevant to Health Maintenance Insurance Advance Directives * Full Code (Latest Code Status on File) Date Activated Date Inactivated Comments 05/21/2024 2:36 PM CPR-Full Treat ment: FULL ARREST: Attempt Resuscitation/CPR wit intubation and mechanical ventilation. PRE-ARREST: Use entire range of life support measures to stabilize the patient. * Full Code Date Activated Date Inactivated Comments 07/02/2017 4:18 PM 07/05/2017 1:28 PM CPR-Full Treat ment: FULL ARREST: Attempt Resuscitation/CPR wit intubation and mechanical ventilation. PRE-ARREST: Use entire range of life support measures to stabilize the patient. Care Teams Professor Of Criminal Justice Relationship Specialty Start Date End Date Spencer Cabrera [facility] [place] [address] PCP - General 11/24/20 Malcom Siegel MD [address] [place] [address] Consulting Physician Neurology 06/13/24 Clari Porter APRN, DRAFTER CIVIL ENGINEERING [address] [place] [address] Nurse Practitioner Advanced Practice Nurse 09/11/24
--- NOTE | 2024-10-09 14:48 | ED_ITS ---
HPI - Female Genitourinary General Chief complaint: Urogenital-Female Stated complaint: Bloating,Urinary Problems Time Seen by Provider: 10/09/24 14:40 Source: patient and RN notes reviewed Mode of arrival: ambulatory Limitations: no limitations History of Present Illness HPI Narrative: 54-year-old female with history of diabetes presents with concern for abdominal bloating, discomfort. Reports history of kidney infections, she has been treated for 3 infections in the last couple of months. She has been in communication with her kidney doctor and her primary care about her bloating, they have been treating her for constipation, even though she says she was having 2 bowel movements a day at the time. Reports he has been taking medications, including and my yesterday. Reports she is having regular loose bowel movements with no improvement in her abdominal bloating. Patient has had a partial hysterectomy. She reports she is wearing pants that her 2 size is larger than her normal pains. MD elicited complaint: other (Bloating) Related Data Home Medications ?Medication ?Instructions ?Recorded ?Confirmed ?Last Taken ?Type atorvastatin 80 mg tablet mg 05/19/23 Unknown History dulaglutide 1.5 mg/0.5 mL mg subcut 05/19/23 Unknown History subcutaneous pen injector (Trulicity) empagliflozin 25 mg tablet mg 05/19/23 05/19/23 Unknown History (Jardiance) isosorbide mononitrate 120 mg mg PO 05/19/23 Unknown History tablet,extended release 24 hr losartan 25 mg tablet mg 05/19/23 Unknown History metoprolol succinate 50 mg mg PO 05/19/23 Unknown History tablet,extended release 24 hr oxybutynin chloride 10 mg mg PO 05/19/23 Unknown History tablet,extended release 24 hr ranolazine 500 mg tablet,extended mg PO 05/19/23 05/19/23 Unknown History release,12 hr clopidogrel 75 mg tablet mg 10/09/24 Unknown History gabapentin 300 mg capsule mg 10/09/24 Unknown History solifenacin 10 mg tablet mg PO 10/09/24 Unknown History Allergies Allergy/AdvReac Type Severity Reaction Status Date / Time bee venom protein (honey bee) Allergy Intermediate Rash Verified 05/19/23 15:29 Penicillins Allergy Unknown Rash Verified 05/19/23 15:29 all diabetic meds AdvReac Intermediate Other Uncoded 05/19/23 15:29 Review of Systems Review of Systems: CONSTITUTIONAL: Denies malaise, chills, sweats, or fever. CARDIOVASCULAR: Denies chest pain, palpitations, or edema. RESPIRATORY: Denies cough or dyspnea. GASTROINTESTINAL: Reports generalized abdominal bloating and discomfort, nausea. Denies constipation, vomiting, diarrhea GENITOURINARY: Denies dysuria, frequency, urgency, suprapubic pressure. Denies flank pain or hematuria. SKIN: Denies rash or itching. MUSCULOSKELETAL: Reports back pain. Denies myalgia. All systems reviewed & are unremarkable except as noted in HPI and below PMFSH Past Medical History Medical History Diabetes Arthritis Breast cancer Brain cancer Elevated cholesterol Hypertension Urinary tract infection Surgical History Surgical History H/O: hysterectomy Social History Social History Smoking status: Never smoker Alcohol intake: current Alcohol use details: rare Substance use type: does not use Living arrangements: with family Gender identity (if verbalized by the patient): Female Comments At time of signature, agree with nursing past medical, surgical, social and family history. There is no relevant family history pertinent to the presenting complaint Exam Narrative: GENERAL: Well-appearing, well-nourished, and in no acute distress. HEAD: Normocephalic. EYES: PERRLA, conjunctivae clear. NECK: Supple. No lymphadenopathy CHEST: Clear to auscultation. No respiratory distress. HEART: Regular rate and rhythm. ABDOMEN: Bloated, firm, tender SKIN: Warm, dry, no rash. NEURO: Alert and oriented x3. PSYCH: Normal mood and affect Course Course Emergency Course: Patient is aware of diagnosis, understands and agrees to treatment plan. Anti cipatory guidance given. Patient agrees to follow-up as directed and is aware of reasons to seek care at the emergency department. Portions of this record may have been created with voice recognition software Level of Care: Express Care Visit Vital Signs Vital signs: Vital Signs Temperature 98.3 F 10/09/24 14:33 Pulse Rate 82 10/09/24 14:33 Respiratory Rate 18 10/09/24 14:33 Blood Pressure 149/94 H 10/09/24 14:33 Pulse Oximetry 97 10/09/24 14:33 Oxygen Delivery Room Air 10/09/24 14:33 Temperature 98.3 F 10/09/24 14:33 Pulse Rate 82 10/09/24 14:33 Respiratory Rate 18 10/09/24 14:33 Blood Pressure 149/94 H 10/09/24 14:33 Pulse Oximetry 97 10/09/24 14:33 Oxygen Delivery Room Air 10/09/24 14:33 Reviewed. Transfer Transfered to: [facility] Transportation: Other (Private vehicle) Transfer rationale: Abdominal bloating and pain Accepting physician: MADELINE Smyth MDM - Female Genitourinary MDM Narrative Medical decision making narrative: Patient is non-toxic appearing and is in no distress. Unable to evaluate UA, patient took azo. Transfer to emergency room for further evaluation of abdominal bloating and abdominal discomfort Differential Diagnosis Differential diagnosis: Likely cystitis Critical Care Time Critical Care Time Critical Care Time: No Discharge Plan Discharge Clinical Impression: Abdominal bloating Patient Disposition: Acute Care Hospital Condition: Stable Patient Language: Faroese Prescriptions: No Action atorvastatin 80 mg tablet oxybutynin chloride 10 mg tablet extended release 24hr PO metoprolol succinate 50 mg tablet extended release 24 hr PO isosorbide mononitrate 120 mg tablet extended release 24 hr PO losartan 25 mg tablet ranolazine 500 mg tablet extended release 12 hr PO Trulicity 1.5 mg/0.5 mL pen injector SUBCUT Jardiance 25 mg tablet Patient Comments: stated is not currently taking dt unable to afford cost. albuterol sulfate 90 mcg/actuation HFA aerosol inhaler 2 inh inhalation QID PRN (Reason: shortness of breath or wheezing) Qty: 8.5 0RF clopidogrel 75 mg tablet gabapentin 300 mg capsule solifenacin 10 mg tablet PO Follow-up/Referrals: Rick,Spencer Salcedo MD [Primary Care Provider] -
== END 2024-10-09 15:11 | disposition short-term general hospital (02) ==
PROVIDERS: Emergency Provider Nurse Practitioner; PCP Family Medicine
DX: R14.0 Abdominal distension (gaseous) (principal); E11.9 Type 2 diabetes mellitus without complications; Z79.84 Long term (current) use of oral hypoglycemic drugs; Z79.85 Long-term (current) use of injectable non-insulin antidiabetic drugs; I10 Essential (primary) hypertension; E78.00 Pure hypercholesterolemia, unspecified; Z85.3 Personal history of malignant neoplasm of breast; Z85.841 Personal history of malignant neoplasm of brain
CPT/HCPCS: 87086; 99212; G0463

== ENCOUNTER 2025-02-21 11:24 | Emergency (ER) | payer OTHER, SELFPAY ==
--- OUTSIDE RECORDS SUMMARY | 2024-03-16 15:30 | XMS_ITS ---
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 If intended option is not shown, discontinue and re-order from Quick Search* Active Lisinopril *Please review a nd pick correct strength-formulatio n from Medispan options. If intended option is not shown, discontinue and re-order from Quick Search* Active Citalopram Hydrobromide *Please review and pick correct strength-formulatio n from Medispan options. If intended option is not shown, discontinue and re-order from Quick Search* Active Encounters Encounter Location Date Provider Diagnosis [facility] [address] [place], [place] [id number] 03/16/2024 Provider Migration Plan Of Treatment No Information Progress Notes * Brett LAZO LDOB:1970 (54 yo F)Acc No.[id number]:03/16/2024 Patient: Brett Bird Provider: Abdirizak moya Migration :1970 A ge:53 Y S ex:Female Date:03/16/2024 [place] [facility] [id number] Pcp:Katty Lai Subjective: * Chief Complaints: * M ultum To Medispan Conversion Encounter * Medications: T akingCitalopram Hydrobromide , Notes to Pharmacist: *Please review and pick correct strength-formulation from Medispan options. If intended option is not shown, discontinue and re-order from Quick Search*Lisinopril , Notes to Pharmacist: *Please review and pick correct strength-formulation from Medispan options. If intended option is not shown, discontinue and re-order from Quick Search*risperiDONE , Notes to Pharmacist: *Please review and pick correct strength-formulation from Medispan options. If intended option is not shown, discontinue and re-order from Quick Search*Taking Citalopram Hydrobromide , Notes to Pharmacist: *Please review and pick correct strength-formulation from Medispan options. If intended option is not shown, discontinue and re-order from Quick Search*Taking Lisinopril , Notes to Pharmacist: *Please review and pick correct strength-formulation from Medispan options. If intended option is not shown, discontinue and re-order from Quick Search*Taking risperiDONE , Notes to Pharmacist: *Please review and pick correct strength-formulation from Medispan options. If intended option is not shown, discontinue and re-order from Quick Search* * Allergies: N OVACAINE * Electronic signature of Avi vasquez Migration on 02/21/2025 at 11:27 AM PULLING [employer]IT FLOOR[employer] Sign off status: Pending * Provider: Abdirizak moya Migration Date: 05/17/2023 Generated for Catrachita chandra/Adalberto/Chinosmitting on: 04/23/2024 11:27 AM P[employer]ING UNIT FLOOR[employer]
--- NOTE | ~2025-02-21 | XR_ITS ---
EXAMINATION: XR ankle LT min 3V, 02/21/2025 11:40 STITCHER SET UP OPERATOR AUTOMATIC HISTORY: ROLLED ANKLE,GEN MEDIAL PAIN COMPARISON: No comparisons available. Findings: No acute fracture or malalignment. No significant degenerative changes. Soft tissues unremarkable. Impression: No acute fracture or malalignment. Reviewed, dictated and finalized at location P. CH[facility] SET UP OPERATOR AUTOMATIC Impression: No acute fracture or malalignment.
--- NOTE | ~2025-02-21 | XR_ITS ---
EXAMINATION: XR foot LT min 3V DATE: 02/21/2025 11:49 INDICATION: Rolled ankle TECHNIQUE: Left foot x-ray were obtained. COMPARISON: None. FINDINGS: No displaced fracture dislocation. No suspicious radiopaque foreign body seen. Prominent spurring/enthesopathy at the Achilles tendon insertion and contrast of the calcaneus. IMPRESSION: 1. No displaced fracture lucency. Reviewed, dictated and finalized at location A. OPERATOR
--- OUTSIDE RECORDS SUMMARY | 2025-02-21 11:27 | XMS_ITS | Encounter Summary ---
Author Organization [facility] Address [address] [place] [address] Care Team Providers Care Statistical Machine Mechanic Name Role Phone Mack Camp DO Primary Care Provider Encounter Details Date Type Department Care Team (Late st Contact Info) Description 03/05/[address] 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
--- OUTSIDE RECORDS SUMMARY | 2025-02-21 11:27 | XMS_ITS | Encounter Summary ---
Author Organization [employer] Address [address] [place] [address] Care Team Providers Care Career Services Assistant Name Role Phone Mack Camp DO Primary Care Provider Encounter Details Date Type Department Care Team (Late st Contact Info) Description 08/08/2000 [facility] [address] [place] [address] [phone] Thor Aceves DO NO ADDRESS ON FILE Social History Tobacco Use Types Packs/Day Years Used Date Smoking Tobacco: Never Assessed Comments Unknown Sex and Gender Information Value Date Recorded Sex Assigned at Not on file Legal Sex Female 3:54 AM RADIOISOTOPE TECHNICIAN Gender Identity Not on file Sexual Orientation Not on file documented as of this encounter Plan of Treatment Not on file documented as of this encounter Visit Diagnoses Not on filedocumented in this encounter Care Teams Career Services Assistant Relationship Specialty Start Date End Date Mack Camp DO [address] [place] [phone] PCP - General Geriatric Medicine 07/29/16 11/27/22 documented as of this encounter
--- OUTSIDE RECORDS SUMMARY | 2025-02-21 11:27 | XMS_ITS | Encounter Summary ---
Author Organization [employer] Address [address] [place] [address] Care Team Providers Care Bush And Vine Farmer Fruit Crops Name Role Phone Mack Camp DO Primary Care Provider Encounter Details Date Type Department Care Team (Late st Contact Info) Description 04/19/2001 [facility] [address] [place] [address] [phone] Thor Aceves DO NO ADDRESS ON FILE Social History Tobacco Use Types Packs/Day Years Used Date Smoking Tobacco: Never Assessed Comments Unknown Sex and Gender Information Value Date Recorded Sex Assigned at Not on file Legal Sex Female 3:54 AM PARAOPTOMETRIC Gender Identity Not on file Sexual Orientation Not on file documented as of this encounter Plan of Treatment Not on file documented as of this encounter Visit Diagnoses Not on filedocumented in this encounter Care Teams [employer] Farmer [employer] Relationship Specialty Start Date End Date Mack Camp DO [address] [place] [phone] PCP - General Geriatric Medicine 07/29/16 11/27/22 documented as of this encounter
--- OUTSIDE RECORDS SUMMARY | 2025-02-21 11:27 | XMS_ITS | Encounter Summary ---
Author Organization [employer] Address 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
--- OUTSIDE RECORDS SUMMARY | 2025-02-21 11:27 | XMS_ITS | Encounter Summary ---
Author Organization [employer] Address [address] [place] [address] Care Team Providers Care Die Stamping Press Operator Name Role Phone Mack Camp DO Primary Care Provider Encounter Details Date Type Department Care Team (Late st Contact Info) Description 01/23/2002 [facility] [address] [place] [address] [phone] Thor Aceves DO NO ADDRESS ON FILE Social History Tobacco Use Types Packs/Day Years Used Date Smoking Tobacco: Never Assessed Comments Unknown Sex and Gender Information Value Date Recorded Sex Assigned at Not on file Legal Sex Female 3:54 AM CORPSMAN Gender Identity Not on file Sexual Orientation Not on file documented as of this encounter Plan of Treatment Not on file documented as of this encounter Visit Diagnoses Not on filedocumented in this encounter Care Teams Die Stamping Press Operator Relationship Specialty Start Date End Date Mack Camp DO [address] [place] [phone] PCP - General Geriatric Medicine 07/29/16 11/27/22 documented as of this encounter
--- OUTSIDE RECORDS SUMMARY | 2025-02-21 11:27 | XMS_ITS | Encounter Summary ---
Author Organization [employer] Address [address] [place] [address] Care Team Providers Care Agriculture Technician Name Role Phone Mack Camp DO Primary Care Provider Encounter Details Date Type Department Care Team (Late st Contact Info) Description 01/18/2001 [facility] [address] [place] [address] [phone] Thor Aceves DO NO ADDRESS ON FILE Social History Tobacco Use Types Packs/Day Years Used Date Smoking Tobacco: Never Assessed Comments Unknown Sex and Gender Information Value Date Recorded Sex Assigned at Not on file Legal Sex Female 3:54 AM BLOCKERS SKIVER Gender Identity Not on file Sexual Orientation Not on file documented as of this encounter Plan of Treatment Not on file documented as of this encounter Visit Diagnoses Not on filedocumented in this encounter Care Teams Agriculture Technician Relationship Specialty Start Date End Date Mack Camp DO [address] [place] [phone] PCP - General Geriatric Medicine 07/29/16 11/27/22 documented as of this encounter
--- OUTSIDE RECORDS SUMMARY | 2025-02-21 11:27 | XMS_ITS | Encounter Summary ---
Author Organization [employer] Address [address] [place] [address] Care Team Providers Care Publicity Person Name Role Phone Mack Camp DO Primary Care Provider Encounter Details Date Type Department Care Team (Late st Contact Info) Description 09/27/2000 [facility] [address] [place] [address] [phone] Thor Aceves DO NO ADDRESS ON FILE Social History Tobacco Use Types Packs/Day Years Used Date Smoking Tobacco: Never Assessed Comments Unknown Sex and Gender Information Value Date Recorded Sex Assigned at Not on file Legal Sex Female 3:54 AM CRAB BACKER Gender Identity Not on file Sexual Orientation Not on file documented as of this encounter Plan of Treatment Not on file documented as of this encounter Visit Diagnoses Not on filedocumented in this encounter Care Teams Publicity Person Relationship Specialty Start Date End Date Mack Camp DO [address] [place] [phone] PCP - General Geriatric Medicine 07/29/16 11/27/22 documented as of this encounter
--- OUTSIDE RECORDS SUMMARY | 2025-02-21 11:27 | XMS_ITS | Clinical Summary ---
Author Organization [facility] Address [address] [place] [address] Care Team Providers Care Hose Suspender Cutter Name Role Phone Melo Das DO Unavailable [phone] Spencer Cabrera MD Primary Care Provider + [...] every 7 days Monday Active vitamin B ldln-G-YX-copper -zinc 5-1.5-25 mg tablet Take 1 tablet [...] mg total) by mouth daily 5 Active clobetasoL (TEMOVATE) 0.05 % ointmentIndicati ons:Rash and other nonspecific skin eruption Apply twice daily to the left thigh 60 g 2 5 Active Active Problems Problem Noted Date Diagnosed Date Chest pain, unspecified type 12/21/2022 CAD (coronary artery disease) 11/24/2022 Obesity (BMI 30-39.9) 03/05/2021 Chest pain 03/04/2021 Assessment & Plan (03/05/2021 12:42 AM FIRE AND EXPLOSION INVESTIGATOR): Exact etiology unclear. Appears to be exertional but also seems to be worsened with deep breathing with a certain amount of reproducibility with palpation. Cardiology is following. Stress test was negative. Echo showed normal EF. Will consider CT of the chest if cardiac workup is negative. Exhaustion 03/02/2021 Assessment & Plan (03/02/2021 1:02 PM FIRE AND EXPLOSION INVESTIGATOR): Patient's exhaustion is difficult at this point [...] (cerebrum) 04/17/2019 Coronary artery disease invo lving yuhaaviatam coronary artery of yuhaaviatam heart without angina pectoris 06/14/2018 Overview (06/15/2018): Added automatically from request for surgery [id number] Assessment & Plan (03/05/2021 12:39 AM FIRE AND EXPLOSION INVESTIGATOR): Continue aspirin, statin, Imdur and Arb. Type 2 diabetes mellitus wit h hyperglycemia, without long-term current use of insulin 06/13/2018 Assessment & Plan (03/05/2021 12:39 AM FIRE AND EXPLOSION INVESTIGATOR): Patient reportedly allergic to insulin. She is [...] yesterday, uncertain whether she actually saw an hydroelectric machinery mechanic helper regarding this. Diabetes endo team to talk [...] 2018 Assessment & Plan (03/05/2021 12:40 AM FIRE AND EXPLOSION INVESTIGATOR): Echo shows normal EF with grade 1 [...] medications. Assessment & Plan (03/05/2021 12:40 AM FIRE AND EXPLOSION INVESTIGATOR): Continue home medications with hold parameters Assessment & Plan (06/15/2018 2:39 AM CDT): Previous home regimen: Spironolactone 25, Coreg 25 BID, Entresto 24-26, Lasix 20 daily - management as above Assessment & Plan (06/13/2018 3:30 AM CDT): Patient received a dose of nitroglycerin. The chest pain still present. Currently on heparin drip. Continue with heparin hospital monitor Continue cardiac pertinent home medications Status post [...] EDEN x1 to mid-LAD in 11/2017 at [facility]. - continue ASA, Brilinta, Crestor - management [...] AM CDT): Coronary artery disease invo lving yuhaaviatam coronary artery of yuhaaviatam heart 05/17/19 20 Encounters Date Type Department Care Team Description 02/13/2025 11:45 AM FIRE AND EXPLOSION INVESTIGATOR Office Visit [facility] Medicine Dermatology [address] [place] [address] [address] [place] [address] Veronica Reveles MD PhD Rash and other nonspecific skin eruption (Primary Dx) from Last 3 Months Surgical History Surgery Date Site/Laterality Comments APPENDECTOMY HYSTERECTOMY CHOLECYSTECTOMY SINUS SURGERY CYSTOSCOPY KIDNEY W/ URETERAL GUIDE WIRE Medical History Medical History Date Comments Diabetes mellitus CHF (congestive heart failure) (HCC) Coronary artery [...] pur e alcohol) monthly Social Connection and Isolation Panel Answer Date Recorded In a typical week, how many times do you talk on the phone with family, friends, or neighbors? More than three times a week 11/24/2022 How often do you get togethe r with friends or relatives? More than three times a week 11/24/2022 How often do you attend [facility] or yarsani services? Never 11/24/2022 Do you belong to any clubs o r organizations such as buddhist groups, unions, fraternal or athletic groups, or [...] place to sleep or slept in a chcf (including now)? No 11/24/2022 Personal Safety Answer Date Recorded Have you ever been in or are you currently in a harmful physical or emotional relationship or is someone making you feel afraid or unsafe? Denies 12/21/2022 Comments No Sex and Gender Information Value Date Recorded Sex Assigned at Not on file Legal Sex Female 8:51 AM FIRE AND EXPLOSION INVESTIGATOR Gender Identity Not on file Sexual Orientation [...] kg (208 lb 1.8 oz) 12/21/2022 7:16 AM CDT Height 160 cm (5' 3) 12/21/2022 [...] 12/22/2023 12/21/2022, 11/02, 11/24/2022, Additional history exists Influenza Vaccine (#1) 2024 Lipid Panel 05/21/2025 05/21/2024, 11/02, 12/18/2021, Additional history exists Breast Cancer Screening-Mammogram 10/14/2025 10/14/2024, 06/01/2023, 06/01/2023, Additional history exists DTaP/Tdap/Td Vaccine (2 - Td or Tdap) 05/09/2026 05/09/2016 Medical Devices Implanted Type Area Shoe Cutter Device Identifier Shelf Expiration Date Model / Serial / Lot TerWho@ [employer] Angio-Seal Vip 6fr Closere Device [id number] - [id number] Implanted:Qty : 1 on 11/24/2022 by Ameya Swann MD at [facility] Collagen Right: Common Femoral Artery TerWho@ [employer] [id number] / / Loogla Card Vasc Surgery 2.50 X 08mm Malott Descanso Rx Coronary Stent [id number] - [id number] Implanted:Qty : 1 on 11/24/2022 by Ameya Swann MD at [facility] Stent Left: Anterior Descending Cornary Artery Medtronic Card Vasc Surgery 05/03/2025 [id number] / / [id number] [employer] [id number] Xience Alpine 3.5mm 18mm 145cm Rapid Exchange Radiopaque 1 Access - [id number] Implanted:Qty : 1 on 11/10/2017 by Lauri Ball MD at [facility] [employer] 05/23/2020 [id number] Procedures Procedure Name Priority Date/Time Associated Diagnosis Comments EGFR STAT 12/21/2022 4:03 AM CDT HEMOGLOBIN A1C Routine 11/25/2022 3:19 AM CDT LIPID PANEL Routine 11/24/2022 9:39 AM CDT from Last 3 Months or Most Recently Relevant to Health Maintenance Results * eGFR (12/21/2022 4:03 AM CDT) eGFR 91 mL/min/1. 73 m2 [facility] ([place]) Comment: Interpretive Data Reference Interval Normal >/= [...] of Race in Diagnosing Kidney Disease, JASN 202). The CKD-EPI equation should not be used for patients with unstable renal function and has not been validated in children and those over 70. Current interpretive data was last reviewed 2021. Blood 12/21/2022 4:03 AM CDT 12/21/2022 4:07 AM CDT us Binta Georgina Casner MD LAB BLOOD ORDERABLES Fin al Result [facility] Department [place] [address] * Hemoglobin A1c (11/25/2022 3:19 AM CDT) Hgb A1C 5.2 4.0 - 5.6 % [facility] Estimated Average Glucose 103 mg/dL [facility] Comment: The ADA recommends reporting an estimated Average Glucose (eAG) with all Hemoglobin A1c results using the equation derived from a study of 507 normal and diabetic adults. Minority populations were underrepresented and children were not included. (Diabetes Care 31:8687-2175, 2008). The eAG is not equivalent to a fasting glucose. Blood 11/25/2022 3:19 AM CDT 11/25/2022 3:24 AM CDT Tc Landa MD LAB BLOOD ORDERABLES Final Result [facility] [address] Department [place] [address] * Lipid panel (11/24/2022 9:39 AM CDT) [...] on 2017. HDL 48 >=40 mg/dL [facility] Comment: Interpretive Data Ages < or = [...] 2017. LDL, calculated 66 <=129 mg/dL [facility] Comment: Interpretive Data Ages < or = [...] on 2017. Non-HDL Cholesterol 86 mg/dL [facility] Comment: Interpretive Data Ages < or = [...] BLOOD ORDERABLES Final Resul t [facility] [address] Department [place] [address] from Last 3 Months or Most Recently Relevant to Health Maintenance Insurance [facility] H[facility]/PPO Address: [address] [phone] [facility] HMO/PPO Address: [address] [place] [address] [facility] [employer] [facility] HMO/PPO Address: [address] [place] [address] Advance Directives For more information, please contact: [phone] * Full Code (Latest Code Status on [...] 2:00 AM 04/19/2019 12:49 AM Care Teams Hose Suspender Cutter Relationship Specialty Start Date End Date Spencer Cabrera MD PCP - General Family Medicine 05/17/19 Melo Das DO Cardiovascular Disease 11/10/17
--- OUTSIDE RECORDS SUMMARY | 2025-02-21 11:27 | XMS_ITS | Encounter Summary ---
Author Organization [employer] Address [address] [place] [address] Care Team Providers Care Sales Manager [place] Name Role Phone Mack Camp DO Primary Care Provider Encounter Details Date Type Department Care Team (Late st Contact Info) Description 02/01/[address] [facility] [address] [place] [address] [phone] Thor Aceves DO NO ADDRESS ON FILE Social History Tobacco Use Types Packs/Day Years Used Date Smoking Tobacco: Never Assessed Comments Unknown Sex and Gender Information Value Date Recorded Sex Assigned at Not on file Legal Sex Female 3:54 AM MEAT PROCESS WORKER Gender Identity Not on file Sexual Orientation Not on file documented as of this encounter Plan of Treatment Not on file documented as of this encounter Visit Diagnoses Not on filedocumented in this encounter Care Teams Sales Manager [place] Relationship Specialty Start Date End Date Mack Camp DO [address] [place] [phone] PCP - General Geriatric Medicine 07/29/16 11/27/22 documented as of this encounter
--- OUTSIDE RECORDS SUMMARY | 2025-02-21 11:27 | XMS_ITS | Encounter Summary ---
Author Organization [employer] Address [address] [place] [address] Care Team Providers Care Wireless Sales Expert Name Role Phone Mack Camp DO Primary Care Provider Encounter Details Date Type Department Care Team (Late st Contact Info) Description 09/11/2000 [facility] [address] [place] [address] [phone] Thor Aceves DO NO ADDRESS ON FILE Social History Tobacco Use Types Packs/Day Years Used Date Smoking Tobacco: Never Assessed Comments Unknown Sex and Gender Information Value Date Recorded Sex Assigned at Not on file Legal Sex Female 3:54 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
--- OUTSIDE RECORDS SUMMARY | 2025-02-21 11:27 | XMS_ITS | Encounter Summary ---
Author Organization [facility] Address [address] [place] [address] Care Team Providers Care Central Melt Specialist Name Role Phone Unavailable Primary Care Provider Unavailabl e Reason for Visit * Reason Onset Date Comments Surgery 11/29/2022 Encounter Details Date Type Department Care Team (Late st Contact Info) Description 11/29/2022 Telephone [facility] Burn [address] [address] Pual Smith MD [address] [place] [address] Surgery Social History Tobacco Use Types Packs/Day Years Used Date Smoking Tobacco: Former Cigarettes 0.5 20 0 04/21/1968 - 04/21/1988 Alcohol Use Standard Drinks/Week Comments Yes 0 (1 standard drink = 0.6 oz pur e alcohol) Once in blue rodriguez Comments No Sex and Gender Information Value Date Recorded Sex Assigned at Not on file 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 Orellana's office notified me that her nurse navigator, Monet, was notified by [facility] that the patient had a heart attack and stent placement . Berna's chart note from when patient called yesterday states that patient was told by Dr. Swann at [facility] that her surgery w/ Drs. Orellana and [...]
--- OUTSIDE RECORDS SUMMARY | 2025-02-21 11:27 | XMS_ITS | Clinical Summary ---
Author Organization [facility] Address [address] [place] [address] Care Team Providers Care Slag Wheeler Name Role Phone Edgar Cabrera MD Primary Care Provider [phone] Family History Medical History Relation Comments Breast [...] 2) 08/10/2021 COVID-19 Vaccine ( - season) 2024 Influenza Adult (#1) 2025 Mammogram Screening 05/31/2025 06/01/2023, 05/09/2022, 09/21/2021, Additional history exists Hepatitis A Vaccines Aged Out No long er eligible based on patient's age to complete this topic Meningococcal B Vaccine Aged Out No l [...] with 3-D tomography and bilateral breast ultrasound [id number], [id number] EXAM DATE/TIME: 09/21/2021 1:00 PM REASON FOR [...] to dense breast tissue or ligamentous structures. us Edgar Cabrera MD MAMMO Edited Resul t - Final from Last 3 Months or Most Recently Relevant to Health Maintenance Insurance [facility] Care Teams Slag Wheeler Relationship Specialty Start Date End Date Edgar Cabrera MD [address] [place] [address] PCP - General FAMILY PRACTICE 09/02/19
--- OUTSIDE RECORDS SUMMARY | 2025-02-21 11:27 | XMS_ITS | Encounter Summary ---
Author Organization [employer] Address 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
--- OUTSIDE RECORDS SUMMARY | 2025-02-21 11:27 | XMS_ITS | Encounter Summary ---
Author Organization [employer] Address 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
--- OUTSIDE RECORDS SUMMARY | 2025-02-21 11:27 | XMS_ITS | Encounter Summary ---
Author Organization [employer] Address [address] [place] [address] Care Team Providers Care Quality Control Lab Tech Name Role Phone Mack Camp DO Primary [...] on file Legal Sex Female 3:[address]OTOGRAPHER Gender Identity Not on file Sexual Orientation Not on file documented as of this encounter Plan of Treatment Not on file documented as of this encounter Visit Diagnoses Diagnosis Backache, unspecified- Primary documented in this encounter Care Teams Quality Control Lab Tech Relationship Specialty Start Date End Date Mack Camp DO [address] [place] [address] PCP - General Geriatric Medicine 07/29/16 11/27/22 documented as of this encounter
--- OUTSIDE RECORDS SUMMARY | 2025-02-21 11:27 | XMS_ITS | Clinical Summary ---
Author Organization [facility] Address [address] [place] [address] Care Team Providers Care Travel Accommodations Rater Name Role Phone Spencer Cabrera Primary Care Provider Unavailabl e Source Comments [facility],non-owned Affiliates and Associated Physician Practices is amultiple site organization consisting of ambulatory clinics and hospital sitesin [place], [place] and [place]. This disclosure is being madepursuant to the Care Everywhere program and may not contain all information available regarding this patient. Last updated 17.[facility] Allergies Active Allergy Reactions Criticality Noted Date [...] Hysterectomy. Started tamoxifen, 20 mg, 06/01/2023. 04/29/2022 [facility] panel genetic testing on patient: Negative. [facility] panel genetic testing after 07/2021 includes: APC, [...] bra. Reportedly tried caffeine elimination, vitamin-E, evening [place] oil, and topical arnica without improvement. Had [...] on file Legal Sex Female 5:56 AM QA SOFTWARE TEST ENGINEER Gender Identity Not on file Sexual Orientation Not on file Last Filed Vital Signs Vital Sign Reading Time Taken Comments Blood Pressure 132/90 03/03/2022 9:59 AM QA SOFTWARE TEST ENGINEER Pulse 72 03/03/2022 9:59 AM QA SOFTWARE TEST ENGINEER Temperature 37.2 C (98.9 F) 03/07/2021 1:37 AM QA SOFTWARE TEST ENGINEER Respiratory Rate 18 03/07/2021 1:37 AM QA SOFTWARE TEST ENGINEER Oxygen Saturation 96% 03/03/2022 9:59 AM QA SOFTWARE TEST ENGINEER Inhaled Oxygen Concentration - - Weight 90.7 kg (200 lb) 06/01/2023 7:35 AM QA SOFTWARE TEST ENGINEER Height 160 cm (5' 3) 06/01/2023 7:35 AM QA SOFTWARE TEST ENGINEER Body Mass Index 35.43 06/01/2023 7:35 AM QA SOFTWARE TEST ENGINEER Plan of Treatment Health Maintenance Due Date Last Done Comments COLOGUARD (AGES 45-75) - COLON CA SCREENING 1971 COLON MONITORING 1971 COLONOSCOPY - COLON CA SCREENING 1971 CT COLONOGRAPHY - COLON CA SCREENING 1971 Colorectal Cancer Screening 1971 FIT - COLON CA SCREENING 1971 FLEX SIG - COLON CA SCREENING 1971 COVID-19 VACCINE (#1) 08/10/1976 HIV SCREENING 08/10/1986 HEPATITIS C SCREENING 08/06/1989 DTAP/TDAP/TD VACCINES (1 - Tdap) 08/10/1990 HEPATITIS B VACCINE (1 of 3 - 19+ 3-dose series) 08/10/1990 PNEUMOCOCCAL VACCINE 50+ (2 of 2 - PCV) 08/10/2021 04/06/2013 ZOSTER VACCINE (1 of 2) 08/10/2021 SCREENING FOR DIABETES 03/06/2024 , 06/13/2016, 08/10/2015, Additional history exists DEPRESSION SCREENING 04/03/2024 INFLUENZA VACCINE (#1) 2024 MAMMOGRAM 05/31/2025 06/01/2023, 09/2022, 05/09/2022, Additional history exists HIB VACCINE Aged Out [...] this topic Medical Devices Implanted Type Area Machine Clothing Replacer Device Identifier Shelf Expiration Date Model / Serial / Lot Percuflex 6fr X26cm Implanted:Qty: 1 on 12/06/2013 by Yuriy Badillo MD at [facility] Left: Ureter 09/01/2016 [id number] / / [id number] Procedures Procedure Name Priority Date/Time Associated Diagnosis Comments MAMMO BILAT DIAGNOSTIC W DOREEN Routine 06/01/2023 8:46 AM QA SOFTWARE TEST ENGINEER Breast pain COMPREHENSIVE METABOLIC PANEL STAT 03/06/2021 6:52 PM QA SOFTWARE TEST ENGINEER from Last 3 Months or Most Recently Relevant to Health Maintenance Results * MAMMO BILAT DIAGNOSTIC W DOREEN (06/01/2023 8:46 AM QA SOFTWARE TEST ENGINEER) Anatomical Region Laterality Modality Breast Bilateral Mammography 06/01/2023 8:49 AM QA SOFTWARE TEST ENGINEER Impressions 06/01/2023 8:52 AM QA SOFTWARE TEST ENGINEER : No mammographic evidence of malignancy. BI-RADS Category 1: Negative Examination. Recommendation: Continue annual or high risk screening regimen based on specialist's protocol. > Interpreting Provider: Jason Walters MD on 06/01/2023 8:52 AM Narrative 06/01/2023 8:52 AM QA SOFTWARE TEST ENGINEER Bilateral mammography. Most recent comparison: [facility] 2022 & prior History: Nonfocal bilateral breast pain. Technique: Bilateral Breasts. Mammography views included: CC and MLO. Images interpreted with CAD. Following current [facility] protocol, 3D mammographic tomosynthesis images were obtained and reviewed on a dedicated viewing station. FINDINGS: Breast composition: Scattered areas of fibroglandular density. No suspicious microcalcifications, masses or areas of architectural distortion. Current ACR guidance does not recommend ultrasound for nonfocal breast pain. us Jo Rowe MD MAMMO ORDERABLES Final Resu lt * (ABNORMAL) COMPREHENSIVE METABOLIC PANEL (03/06/2021 6:52 PM QA SOFTWARE TEST ENGINEER) BUN 17 7 - 26 mg/dL 03/06/2021 7:15 PM [facility] Creatinine 1.11(H) 0.56 - 0.96 mg/dL 03/06/2021 7:15 PM [facility] Sodium 141 136 - 145 mmol/L 03/06/2021 7:15 PM [facility] Potassium 3.9 3.5 - 4.5 mmol/L 03/06/2021 7:15 PM [facility] Chloride 105 98 - 107 mmol/L 03/06/2021 7:15 PM [facility] CO2 27 22 - 29 mmol/L 03/06/2021 7:15 PM [facility] Glucose 106 70 - 115 mg/dL 03/06/2021 7:15 PM [facility] Calcium 9.7 8.4 - 10.2 mg/dL 03/06/2021 7:15 PM [facility] Protein Total 7.5 6.0 - 8.3 g/dL 03/06/2021 7:15 PM [facility] Albumin 3.8 3.4 - 5.0 g/dL 03/06/2021 7:15 PM [facility] Bilirubin Total 0.3 0.2 - 1.2 mg/dL 03/06/2021 7:15 PM [facility] Alkaline Phosphatase 81 40 - 150 U/L 03/06/2021 7:15 PM [facility] ALT 28 5 - 55 U/L 03/06/2021 7:15 PM [facility] AST 32 5 - 34 U/L 03/06/2021 7:15 PM [facility] Anion Gap 13 8 - 18 03/06/2021 7:15 PM [facility] BUN/Creatinine Ratio 15 7 - 23 03/06/2021 7:15 PM [facility] Osmolality Calculated 294 270 - 300 mOsm/kg 03/06/2021 7:15 PM [facility] Albumin/Globulin Ratio 1.0(L) 1.1 - 2.3 03/06/2021 7:15 PM [facility] eGFR by CKD-EPI 58(L) >=90 mL/min/1.7 3 m2 03/06/2021 7:15 PM [facility] Blood BLOOD SPECIMEN / Unknown Venipuncture / Unknown 03/06/2021 6:52 PM QA SOFTWARE TEST ENGINEER 03/06/2021 7:02 PM [facility] us Ashvin Dougherty MD LAB - CHEMISTRY ORDERABLES Fi nal Result [facility] [address] [place] [address], [place] [phone] from Last 3 Months or Most Recently Relevant to Health Maintenance Insurance [facility] Advance Directives * FULL RESUSCITATION (Latest Code Status on File) Date Activated Date Inactivated Comments 04/05/2013 3:12 AM 04/06/2013 6:23 PM * FULL RESUSCITATION Date Activated Date Inactivated Comments 12/26/2011 3:14 PM 12/28/2011 9:33 PM Care Teams Travel Accommodations Rater Relationship Specialty Start Date End Date Spencer Cabrera PCP - General 03/06/21
--- OUTSIDE RECORDS SUMMARY | 2025-02-21 11:27 | XMS_ITS | Encounter Summary ---
Author Organization [employer] Address 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
--- OUTSIDE RECORDS SUMMARY | 2025-02-21 11:27 | XMS_ITS | Clinical Summary ---
Author Organization [facility] Address [address] [place] [address] Phone Care Team Providers Care Fare Collector Name Role Phone Unavailable Primary Care Provider [...] on file Legal Sex Female 3:54 AM CARE ATTENDANT Gender Identity Not on file Sexual Orientation Not on file Last Filed Vital Signs Vital Sign Reading Time Taken Comments Blood Pressure 134/78 03/16/2023 9:02 AM CARE ATTENDANT Pulse 77 02/08/2023 11:19 AM CARE ATTENDANT Temperature 36.6 C (97.9 F) 02/08/2023 11:19 AM CARE ATTENDANT Respiratory Rate 18 07/29/2016 10:46 AM CDT Oxygen Saturation 96% 02/08/2023 11:19 AM CARE ATTENDANT Inhaled Oxygen Concentration - - Weight 91.6 kg (202 lb) 03/16/2023 9:02 AM CARE ATTENDANT Height 160 cm (5' 3) 03/16/2023 9:02 AM CARE ATTENDANT Body Mass Index 35.78 03/16/2023 9:02 AM CARE ATTENDANT Plan of Treatment Health Maintenance Due Date [...] (#1) 2024 Medical Devices Implanted Type Area Jewelry Drill Operator Device Identifier Shelf Expiration Date Model / Serial / Lot Breast Markers Bilateral Cardiac Stent X 2 Procedures Procedure Name Priority Date/Time Associated Diagnosis Comments MAMMO 3D DOREEN DIAGNOSTIC BILAT W OR WO CAD Routine 05/09/2022 11:47 AM CARE ATTENDANT Abnormal finding on breast imaging Mass of upper outer quadrant of left breast LIPID PANEL Routine 05/08/2009 10:26 AM CARE ATTENDANT Screening for Lipoid Disorders from Last 3 Months or Most Recently Relevant to Health Maintenance Results * (ABNORMAL) MAMMO DIAG BILAT 3D DOREEN W OR WO CAD (05/09/2022 11:47 AM CARE ATTENDANT) Anatomical Region Laterality Modality Breast Bilateral Mammography 05/09/2022 11:4 8 AM CARE ATTENDANT Impressions 05/09/2022 3:56 PM CARE ATTENDANT IMPRESSION: 1. Patient complains of a new [...] new palpable abnormality. Narrative 05/09/2022 3:56 PM CARE ATTENDANT BILATERAL DIAGNOSTIC DIGITAL MAMMOGRAM WITH TOMOSYNTHESIS, CAD [...] patient's new palpable abnormality. us Amaris Spence NP MAMMO ORDERABLES Final Result * (ABNORMAL) LIPID PANEL (05/08/2009 10:26 AM CARE ATTENDANT) CHOLESTEROL 220(H) 100 - 199 mg/dL [facility] TRIGLYCERIDE 84 10 - 149 mg/dL [facility] HDL 56 40 - 59 mg/dL [facility] CHOL/HDL RATIO 3.9 2.0 - 5.0 [facility] LDL CALCULATED 147(H) <=99 mg/dL [facility] LIPID PANEL COMMENT See Below [facility] Comment: The adult ATP and pediatric NCEP classifications for lipids are available on the [facility] at: [email or web address] Select: Lab Policies and Procedures,Current Select: Lipid Panel Interpretation Blood specimen (specimen) 05/08/2009 10:26 AM CARE ATTENDANT 05/08/2009 10:40 AM CARE ATTENDANT us Jason Cowan MD CHEMISTRY ORDERABLES Edited [facility] CLIA# [id number] [address], [place] [address] from Last 3 Months or Most Recently Relevant to Health Maintenance Insurance
--- OUTSIDE RECORDS SUMMARY | 2025-02-21 11:27 | XMS_ITS | Patient Health Record ---
Author Organization [facility] Address [address] [place], [place] [address] Care Team Providers Care Cattle Producers Name Role Phone Katty Johnson Primary Care Provider Ang Harry Unavailable [phone] Migration, Provider Unavailable Unavailable Allergies Allergen (clinical drug ingredient) Drug/Non Drug Allergy documented on EMR Reaction Allergy Type Onset Date Status NOVACAINE (uncoded) Unknown Allergy Active Reason For Referral No Information Medications Medication SIG (Take, Route, Frequency, Duration) Notes Start Date End Date Status risperiDONE *Please review a nd pick correct strength-formulatio n from Belly Ballotan options. If intended option is not shown, discontinue and re-order from Quick Search* Active Lisinopril *Please review a nd pick correct strength-formulatio n from AfterShipspan options. If intended option is not shown, discontinue and re-order from Quick Search* Active Citalopram Hydrobromide *Please review and pick correct strength-formulatio n from Belly Ballotan options. If intended option is not shown, discontinue and re-order from Quick Search* Active Social History Social History Additional Details Category Social Info Options Details Social History Occupation No Recreational drug use No Smokeless Tobacco No Passive smoke exp: Yes Problems Problem Type SNOMED Code ICD Code Onset Dates Problem Status W/U Status Risk Notes Problem Allergic rhinitis caused by pollen (disorder) (44428963) Allergic rhinitis due to pollen (477.0) Active confirmed Problem Chronic infection of sinus (95420801) Chronic infection of sinus NOS (473.9) Active confirmed S/P FESS Problem Chronic ethmoidal sinusitis (67683884) Chronic ethmoidal sinusitis (473.2) Active confirmed Problem Epistaxis (472058312) Epistaxis (784.7) Active confirmed Problem Cephalgia (78100529) Cephalgia (784.0) Active confirmed Encounters Encounter Location Date Provider Diagnosis [facility] [address] [place], [place] [id number] 03/16/2024 Provider Migration Plan Of Treatment No Information Insurance Providers Payer Name Payer Address Payer Phone Subscriber Number Group Number Insured Name Patient Relationship to Insured Coverage Start Date Coverage End Date [facility] [address] [address] [place] [address] [id number] Justino Faustin Spouse - patient is the spouse of the insured Medical (General) History Medical History History ICD Code Pertinent Medical History: High blood pr essure, Other Surgical History Surgery Date(Month/Year) Hysterectomy Sinus/ Septo Hospitalization History Reason Date(Month/Year) Hysterectomy
--- OUTSIDE RECORDS SUMMARY | 2025-02-21 11:27 | XMS_ITS | Encounter Summary ---
Author Organization [employer] Address [address] [place] [address] Care Team Providers Care Custodian Athletic Equipment Name Role Phone Mack Camp DO Primary Care Provider Encounter Details Date Type Department Care Team (Late st Contact Info) Description 10/11/2000 [facility] [address] [place] [address] [phone] Thor Aceves DO NO ADDRESS ON FILE Social History Tobacco Use Types Packs/Day Years Used Date Smoking Tobacco: Never Assessed Comments Unknown Sex and Gender Information Value Date Recorded Sex Assigned at Not on file Legal Sex Female 3:54 AM COAGULATING OPERATOR Gender Identity Not on file Sexual Orientation Not on file documented as of this encounter Plan of Treatment Not on file documented as of this encounter Visit Diagnoses Not on filedocumented in this encounter Care Teams Custodian Athletic Equipment Relationship Specialty Start Date End Date Mack Camp DO [address] [place] [phone] PCP - General Geriatric Medicine 07/29/16 11/27/22 documented as of this encounter
--- OUTSIDE RECORDS SUMMARY | 2025-02-21 11:27 | XMS_ITS | Encounter Summary ---
Author Organization [employer] Address [address] [place] [address] Care Team Providers Care Pattern Storage Clerk Name Role Phone Mack Camp DO Primary Care Provider Encounter Details Date Type Department Care Team (Late st Contact Info) Description 01/08/2001 [facility] [address] [place] [address] [phone] Thor Aceves DO NO ADDRESS ON FILE Social History Tobacco Use Types Packs/Day Years Used Date Smoking Tobacco: Never Assessed Comments Unknown Sex and Gender Information Value Date Recorded Sex Assigned at Not on file Legal Sex Female 3:54 AM 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
--- OUTSIDE RECORDS SUMMARY | 2025-02-21 11:27 | XMS_ITS | Encounter Summary ---
Author Organization [employer] Address [address] [place] [address] Care Team Providers Care Armature Winder Repairer Name Role Phone Mack Camp DO Primary Care Provider Encounter Details Date Type Department Care Team (Late st Contact Info) Description 07/19/2000 [facility] [address] [place] [address] [phone] Thor Aceves DO NO ADDRESS ON FILE Social History Tobacco Use Types Packs/Day Years Used Date Smoking Tobacco: Never Assessed Comments Unknown Sex and Gender Information Value Date Recorded Sex Assigned at Not on file Legal Sex Female 3:54 AM FIRM ADMINISTRATOR Gender Identity Not on file Sexual Orientation Not on file documented as of this encounter Plan of Treatment Not on file documented as of this encounter Visit Diagnoses Not on filedocumented in this encounter Care Teams Armature Winder Repairer Relationship Specialty Start Date End Date Mack Camp DO [address] [place] [phone] PCP - General Geriatric Medicine 07/29/16 11/27/22 documented as of this encounter
--- OUTSIDE RECORDS SUMMARY | 2025-02-21 11:27 | XMS_ITS | Encounter Summary ---
Author Organization [employer] Address [address] [place] [address] Care Team Providers Care Geospatial Program Management Officer Name Role Phone Mack Camp DO Primary Care Provider Encounter Details Date Type Department Care Team (Late st Contact Info) Description 11/21/2000 Outpatient [facility] [address] [place] [address] [phone] Thor Aceves DO NO ADDRESS ON FILE Social History Tobacco Use Types Packs/Day Years Used Date Smoking Tobacco: Never Assessed Comments Unknown Sex and Gender Information Value Date Recorded Sex Assigned at Not on file Legal Sex Female 3:54 AM LENS HARDENER Gender Identity Not on file Sexual Orientation Not on file documented as of this encounter Plan of Treatment Not on file documented as of this encounter Visit Diagnoses Not on filedocumented in this encounter Care Teams Geospatial Program Management Officer Relationship Specialty Start Date End Date Mack Camp DO [address] [place] [phone] PCP - General Geriatric Medicine 07/29/16 11/27/22 documented as of this encounter
--- OUTSIDE RECORDS SUMMARY | 2025-02-21 11:27 | XMS_ITS | Encounter Summary ---
Author Organization [employer] Address 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
--- OUTSIDE RECORDS SUMMARY | 2025-02-21 11:27 | XMS_ITS | Encounter Summary ---
Author Organization [email or web address] Address [address] [place] [address] Care Team Providers Care District Commercial Superintendent Name Role Phone Mack Camp DO Primary Care Provider Encounter Details Date Type Department Care Team (Late st Contact Info) Description 10/25/2000 [facility] [address] [place] [address] [phone] Thor Aceves DO NO ADDRESS ON FILE Social History Tobacco Use Types Packs/Day Years Used Date Smoking Tobacco: Never Assessed Comments Unknown Sex and Gender Information Value Date Recorded Sex Assigned at Not on file Legal Sex Female 3:54 AM SAWMILL WORKER Gender Identity Not on file Sexual Orientation Not on file documented as of this encounter Plan of Treatment Not on file documented as of this encounter Visit Diagnoses Not on filedocumented in this encounter Care Teams District Commercial Superintendent Relationship Specialty Start Date End Date Mack Camp DO [address] [place] [phone] PCP - General Geriatric Medicine 07/29/16 11/27/22 documented as of this encounter
--- OUTSIDE RECORDS SUMMARY | 2025-02-21 11:27 | XMS_ITS | Encounter Summary ---
Author Organization [facility] Address [address] [place] [address] Phone Care Team Providers Care Diesel Roller Operator Name Role Phone Rick Spencer Patel Primary Care Provider Malcom Siegel MD Unavailable Clari Porter APRN, SERVICE EMPLOYEE Unavailable [phone] Ju Powell APRN, CERTIFIED LEGAL SECRETARY SPECIALIST Unavailable Encounter Details Date Type Department Care Team (Late st Contact Info) Description 02/11/2025 Results Follow-Up [facility] - Neurology - [place] [address] [place] [address] Clari Porter, PATO, SERVICE EMPLOYEE [address] [place] [address] CMP (COMPREHENSIVE METABOLIC PANEL) Social History Tobacco Use Types Packs/Day Years Used Date Smoking Tobacco: Former Cigarettes Smokeless Tobacco: Never Alcohol Use Standard Drinks/Week Comments Yes 0 (1 standard drink = 0.6 oz pur e alcohol) ocasionally [facility] Utilities Answer Date Recorded In the past 12 months has e electric, gas, oil, or water company threatened to shut off services in your [...] week 05/21/2024 How often do you attend chur ch or methodist services? Never 05/21/2024 Do you belong to any clubs o r organizations such as religious groups, unions, fraternal or athletic groups, or [...] medical care, and heating? Somewhat hard 05/21/2024 [facility] [place] of Occupat ional Health - Occupational Stress [...] any time in the past 12 m [facility], were you homeless or living in a group home (including now)? No 05/21/2024 Comments No Sex and Gender Information Value Date Recorded Sex Assigned at Not on file Legal Sex Female 11:46 AM CDT Gender Identity Not on file Sexual Orientation Not on file documented as of this encounter Functional Status * BP Answer Date of Assessment Author 128/88 02/11/2025 10:39 AM MEDICAL CASE MANAGER Tona Loya * Temp Answer Date of Assessment Author 97.8 02/11/2025 10:39 AM MEDICAL CASE MANAGER Tona Loya C * Pulse Answer Date of Assessment Author 82 02/11/2025 10:39 AM MEDICAL CASE MANAGER Tona Loya C * Resp Answer Date of Assessment Author 16 02/11/2025 10:39 AM MEDICAL CASE MANAGER Tona Loya * SpO2 Answer Date of Assessment Author 94 02/11/2025 10:39 AM MEDICAL CASE MANAGER Tona Loya * Height Answer Date of Assessment Author 63 02/11/2025 10:39 AM MEDICAL CASE MANAGER Shalini Tona C * Weight Answer Date of Assessment Author 3286.4 02/11/2025 10:39 AM MEDICAL CASE MANAGER Tona Loya documented as of this encounter Mental Status * BP Answer Entry Date Author 128/88 02/11/2025 10:39 AM MEDICAL CASE MANAGER Tona Loya * Temp Answer Entry Date Author 97.8 02/11/2025 10:39 AM MEDICAL CASE MANAGER Shalini Tona C * Pulse Answer Entry Date Author 82 02/11/2025 10:39 AM MEDICAL CASE MANAGER Tona Loya * SpO2 Answer Entry Date Author 94 02/11/2025 10:39 AM MEDICAL CASE MANAGER Tona Loya * Weight Answer Entry Date Author 3286.4 02/11/2025 10:39 AM MEDICAL CASE MANAGER Tona Loya documented in this encounter Progress Notes * Analilia Hughes RN - 02/11/2025 1:06 PM CST Patient scheduled for toradol. CAL CASE MANAGER * Clari Porter APRN, CNS - 02/11/2025 11:57 AM CST Kidney function is WNL. Please schedule her for a toradol injection in office. CAL CASE MANAGER documented in this encounter Plan of Treatment Upcoming Encounters Date Type Department Care Team (Late st Contact Info) Description 02/24/2025 3:30 PM MEDICAL CASE MANAGER [facility] [address] [place] [address] Clari Porter APRN, SERVICE EMPLOYEE [address] [place] [address] Discharge Disposition: Discharged to home or Selfcare 05/14/2025 9:00 AM MEDICAL CASE MANAGER [facility] [address] [place] [address] Ju Powell APRN, CERTIFIED LEGAL SECRETARY SPECIALIST [address] [place] [address] documented as of this encounter Visit Diagnoses Not on filedocumented in this encounter Care Teams Diesel Roller Operator Relationship Specialty Start Date End Date Spencer Cabrera [address] [place] [address] PCP - General 11/24/20 Malcom Siegel MD [address] [place] [phone] Consulting Physician Neurology 06/13/24 Clari Porter APRN, SERVICE EMPLOYEE [address] [place] [address] Nurse Practitioner Advanced Practice Nurse 09/11/24 Ju Powell APRN, CERTIFIED LEGAL SECRETARY SPECIALIST [address] [place] [address] Nurse Practitioner Advanced Practice Nurse 11/08/24 documented as of this encounter
--- OUTSIDE RECORDS SUMMARY | 2025-02-21 11:28 | XMS_ITS | Clinical Summary ---
Author Organization [facility] Address [address] [place] [address] Phone Care Team Providers Care Thermal Spray Operator Name Role Phone Spencer Cabrera Primary Care Provider [phone] Malcom Siegel MD Unavailable Clari Porter APRN, DIRECTOR FOOD SAFETY Unavailable [phone] Ju Powell APRN, CHEERLEADING COACH Unavailable Allergies Active Allergy Reactions Criticality Noted Date Comments Bee Pollen Unknown 11/08/2024 Bee Venom Anaphylaxis High 12/06/2019 Beeswax Anaphylaxis 07/02/2017 Enoxaparin Itching Medium 03/05/2021 Glipizide-Metformin Hcl Unknown,Vomiting Low 11/10/2017 Insulin Unknown 07/02/2015 Synthetic insulin. Throwing up and light headed. Metformin Other (see Comments) 07/29/2016 Raises my blood sugar Procaine Anaphylaxis 07/02/2017 Prednisone Shortness of Breath High 08/01/2016 Wasp Venom Protein Shortness of Breath High 07/11/19 10 Heart stops Medications ASPIRIN LOW DOSE 81 MG Chewable Tablet TAKE ONE TABLET BY MOUTH AT BREAKFAST 0 09/12/19 18 Active isosorbide mononitrate (IMDUR) 120 MG TABLET SR 24 HR TAKE 1 TABLET BY MOUTH ONCE DAILY 11/05/19 Active Trulicity 1.5 MG/0.5ML Solution Pen-injector INJECT 1 SYRINGE SUBCUTANEOUSLY ONCE A WEEK IN THE ABDOMEN THIGH OR UPPER ARM ROTATING INJECTION SITES. 11/05/19 Active Jardiance 25 MG Tablet TAKE 1 TABLET BY MOUTH ONCE DAILY IN THE MORNING 10/11/19 Active atorvastatin (LIPITOR) 80 MG Tablet Take 80 mg by mouth daily. 11/27/19 Active meclizine (ANTIVERT) 25 MG Tablet Take 25 mg by mouth 3 times daily as needed for Dizziness. 01/13/20 Active gabapentin (NEURONTIN) 300 MG Capsule Take 300 mg by mouth 2 times daily. Active clopidogrel (PLAVIX) 75 MG Tablet Take 75 mg by mouth daily. 04/04/19 Active Toprol XL 50 MG TABLET SR 24 HR Take 50 mg by mouth daily. 11/28/19 Active Ranolazine ER 500 MG Pack Take 500 mg by mouth 2 times daily. 05/09/19 Active losartan (COZAAR) 25 MG Tablet Take 25 mg by mouth daily. Active CINNAMON PO Take 500 mg by mouth 2 times daily. Active VITAMIN E PO Take 670 mg by mouth daily. Active Evening Leonard Oil 1000 MG CapsuleIndicati ons:Diabetes Mellitus Take 1,000 mg by mouth daily. Indications: Diabetes Active INOSITOL PO Take 500 mg by mouth daily. Active polyethylene glycol (GLYCOLAX, MIRALAX) 17 g Pack Take 1 Packet by mouth daily. Dissolve in 4-8 oz of liquid. 14 Packet 10/30/19 Active Additional Information Patient taking differently:17 g Oral2 TIMES DAILY, Dissolve in 4-8 oz of liquid., Reported on 02/11/2025 psyllium (METAMUCIL) 58.6 % Powder Take 1 Packet by mouth daily. 174 g 10/30/19 25 Active senna (Rebekah-nolvia) 8.6 MG Tablet Take 1 Tablet by mouth daily. Active clobetasol (TEMOVATE) 0.05 % Cream Apply as needed. 01/29/20 Active EPINEPHrine (EPIPEN) 0.3 MG/0.3ML Solution Auto-injector 0.3 mg. 10/01/19 Active Gus, Zingiber officinalis, (gus root) 550 MG Capsule Take 1 Tablet by mouth as needed. 03/06/20 21 Active ibuprofen (MOTRIN) 800 MG Tablet as needed. Active multi-vitamins (Daily Vites) Tablet Take 1 Tablet by mouth daily. Active thiamine (VITAMIN B1) 100 MG Tablet Take 1 Tablet by mouth daily. Active rimegepant sulfate (Nurtec) 75 MG TABLET DISPERSIBLEIndi cations:Migrain e Take 1 Tablet by mouth every 48 hours as needed for Other (migraine). Indications: Migraine Headache 16 Tablet 2 02/12/20 25 Active Fremanezumab-vf rm (Ajovy) 225 MG/1.5ML Solution Auto-injectorIn dications:Migra ine 1.5 mL by Subcutaneous route every 30 days. Indications: Migraine Headache 4.5 mL 1 02/12/20 25 Active linaclotide (Linzess) 145 MCG CapsuleIndicati ons:Constipatio n, unspecified constipation type Take 1 Capsule by mouth every morning (before breakfast) for 90 days. 90 Capsule 11/09/19 25 025 Fremanezumab-vf rm (Ajovy) 225 MG/1.5ML Solution Auto-injectorIn dications:Migra ine 1.5 mL by Subcutaneous route every 30 days. Indications: Migraine Headache 1.68 mL 2 11/12/19 25 025 Discontinu ed(Reorder ) Ubrogepant (Ubrelvy) 50 MG TabletIndicatio ns:Migraine Take 1 tab by mouth as needed for migraine or headache. May repeat in 2 hrs if no relief. Indications: Migraine Headache 10 Tablet 2 11/12/19 25 025 Discontinu ed(Alterna te therapy) Hospital, Clinic, or Other Facility Administered Medication Ordered Dose Route Frequency Start Date End Date Status ketorolac (TORADOL) injection 30 mgIndications:Intractable migraine, unspecified migraine type 30 mg IM ONCE 02/11/2025 02/11/2025 Ended Active Problems Problem Noted Date Diagnosed Date Chronic idiopathic constipation 11/22/2024 TIA (transient ischemic attack) 05/21/2024 CVA (cerebral vascular accident) 05/21/2024 Obesity (BMI 35.0-39.9 without comorbidity) 05/04 Hyperlipidemia 05/21/2024 Type 2 diabetes mellitus 05/21/2024 Pneumonia of right lower lobe due to infectious organism 07/02/2017 Elevated d-dimer 07/02/2017 Hypertension 07/02/2017 Resolved Problems Problem Noted Date Diagnosed Date Resolved Date Sepsis 07/02/2017 07/05/2017 Encounters Date Type Department Care Team Description 02/11/2025 1:30 PM EQUIPMENT DRIVER Clinical Support [facility] [address] [place] [address] NurseBaldev Neurology Intractable migraine, unspecified migraine type (Primary Dx) Discharge Disposition: Discharged to home or Selfcare 02/11/2025 10:30 AM EQUIPMENT DRIVER Office Visit [facility] [address] [place] [address] Clari Porter APRN, DIRECTOR FOOD SAFETY Intractable migraine, unspecified migraine type (Primary Dx); Numbness and tingling in right hand Discharge Disposition: Discharged to home or Selfcare 02/11/2025 Results Follow-Up [facility] [address] [place] [address] Clari Porter APRN, DIRECTOR FOOD SAFETY CMP (COMPREHENSIVE METABOLIC PANEL) 02/11/2025 Travel 11/22/2024 7:47 AM CDT Anesthesia Event [facility] [address] [place] [address] Tra Moscoso APRN, ECHO TECHNOLOGIST 11/22/2024 7:30 AM CDT - 11/22/2024 8:00 AM CDT Surgery [facility] [address] [address] [place] [address] Julio C Suárez MD COLONOSCOPY-NORMAL COLONOSCOPY 11/22/2024 6:30 AM CDT Ancillary Procedure [facility] Main [address] [place] [address] Julio C Suárez MD 11/22/2024 6:00 AM CDT - 11/22/2024 8:54 AM CDT Hospital Encounter [facility] Preop/Pacu II [address] [place] [address] Julio C Suárez MD Chronic idiopathic constipation Discharge Disposition: Discharged to home or Selfcare 11/22/2024 Travel from Last 3 Months Immunizations Immunization Administration Dates Next Due Influenza Vaccine, Quadrivalent, PF 07/04/2017() Family History Medical History Relation Name Comments Chronic Obstructive Pulmonary Disease Father Heart Disease Father Kidney Disease Father Cancer Mother Diabetes Mother Osteoporosis Mother Pacemaker Mother Scoliosis Mother Relation Name Status Comments Father Mother Social History Tobacco Use Types Packs/Day Years Used Date Smoking Tobacco: Former Cigarettes Smokeless Tobacco: Never Tobacco Cessation:Counseling Given: Yes Alcohol Use Standard Drinks/Week Comments Yes 0 (1 standard drink = 0.6 oz pur e alcohol) ocasionally [facility] Utilities Answer Date Recorded In the past 12 months has th e electric, gas, oil, or water company [...] week 05/21/2024 How often do you attend [facility] or roman catholic services? Never 05/21/2024 Do you belong to any clubs o r organizations such as baptist groups, unions, fraternal or athletic groups, or [...] medical care, and heating? Somewhat hard 05/21/2024 [facility] of Occupat ional Health - Occupational Stress [...] any time in the past 12 m [facility], were you homeless or living in a group home (including now)? No 05/21/2024 Comments No Sex and Gender Information Value Date Recorded Sex Assigned at Not on file Legal Sex Female 11:46 AM CDT Gender Identity Not on file Sexual Orientation Not on file Last Filed Vital Signs Vital Sign Reading Time Taken Comments Blood Pressure 128/88 02/11/2025 10:39 AM EQUIPMENT DRIVER Pulse 82 02/11/2025 10:39 AM EQUIPMENT DRIVER Temperature 36.6 C (97.8 F) 02/11/2025 10:39 AM EQUIPMENT DRIVER Respiratory Rate 16 02/11/2025 10:39 AM EQUIPMENT DRIVER Oxygen Saturation 94% 02/11/2025 10:39 AM EQUIPMENT DRIVER Inhaled Oxygen Concentration - - Weight 93.2 kg (205 lb 6.4 oz) 02/11/2025 10:39 AM EQUIPMENT DRIVER Height 160 cm (5' 3) 02/11/2025 10:39 AM EQUIPMENT DRIVER Body Mass Index 36.38 02/11/2025 10:39 AM EQUIPMENT DRIVER Plan of Treatment Upcoming Encounters Date Type Department Care Team (Late st Contact Info) Description 02/24/2025 3:30 PM EQUIPMENT DRIVER [facility] [address] [place] [address] Clari Porter, PATO, DIRECTOR FOOD SAFETY [address] [place] [address] Discharge Disposition: Discharged to home or Selfcare 05/14/2025 9:00 AM EQUIPMENT DRIVER Office Visit [facility] - Neurology - [facility] [address] [place] [address] Ju Powell, PATO, CHEERLEADING COACH [address] [place] [address] Health Maintenance Due Date Last Done Comments Diabetes: Eye Exam 1971 Diabetes: Foot Exam 1971 Hepatitis C Virus (HCV) Screening 1971 Hepatitis B Immunization (1 of 3 - 19+ 3-dose series) 08/10/1990 Pneumococcal Immunization (50+ years) (2 of 2 - PCV) 04/06/2014 04/06/2013 Cologuard 08/10/2016 Immunochemical Fecal Occult Blood 08/10/2016 Respiratory Syncytial Virus (RSV) Immunization (Adult) (1 - Risk 50-74 years 1-dose series) 08/10/2021 Zoster Immunization (1 of 2) 08/10/2021 Diabetes: Hemoglobin A1c 11/18/2024 025, 11/25/2022, 11/24/2020, Additional history exists SARS-COV-2 Immunization ( season) 2024 Mammogram 10/14/2025 10/14/2024, 12/03, 12/25/2023, Additional history exists Diabetes: Nephropathy Screening 02/11/2026 02/11/2025, 11/03/2024, 10/29/2024, Additional history exists Colonoscopy 11/22/2029 11/22/2024, 11/22/2024 Colorectal Cancer Screening 11/22/2029 Pneumococcal Immunization Combined Discontinued 04/06/2013 DTaP/Tdap/Td Immunization Discontinued 05/09/2016 TdaP Immunization Completed 05/09/2016 Discussion re Starting/Frequency of Mammograms Discontinued 10/14/2024, 12/25/2023, 12/25/2023, Additional history exists Influenza Immunization Completed 12/02/2024 Human Papillomavirus (HPV) Immunization Aged Out No longer eligible based on patient's age to complete this topic Meningococcal Immunization (ACWY) Aged Out No longer eligible based on patient's age to complete this topic Rotavirus Immunization Aged Out No lo nger eligible based on patient's age to complete this topic Procedures Procedure Name Priority Date/Time Associated Diagnosis Comments CMP (COMPREHENSIVE METABOLIC PANEL) STAT 02/11/2025 11:09 AM EQUIPMENT DRIVER Intractable migraine, unspecified migraine type COLON CA SCRN NOT HI RSK IND 11/22/2024 7:48 AM CDT COLONOSCOPY-NORMAL COLONOSCOPY Special Needs CC/PLAVIX - TYLER in media 11/08 HOLDING TRULICITY 7 DAYS DM - Dx CONSTIPATION Hx of Chf, Htn, TIA, sleep apnea no cpap COLORECTAL SCRN; HI RISK IND 11/22/2024 7:48 AM CDT COLONOSCOPY-NORMAL COLONOSCOPY Special Needs CC/PLAVIX - TYLER in media 11/08 HOLDING TRULICITY 7 DAYS DM - Dx CONSTIPATION Hx of Chf, Htn, TIA, sleep apnea no cpap ME COLONOSCOPY FLX DX W/COLLJ SPEC WHEN PFRMD 11/22/2024 7:48 AM CDT COLONOSCOPY-NORMAL COLONOSCOPY Special Needs CC/PLAVIX - TYLER in media 11/08 HOLDING TRULICITY 7 DAYS DM - Dx CONSTIPATION Hx of Chf, Htn, TIA, sleep apnea no cpap POCT GLUCOSE Routine 11/22/2024 7:15 AM CDT GI IMAGING - COLONOSCOPY Routine 11/22/2024 6:29 AM CDT HEMOGLOBIN A1C W/ ESTIMATED GLUCOSE Routine 05/21/2024 7:04 AM EQUIPMENT DRIVER from Last 3 Months or Most Recently Relevant to Health Maintenance Results * CMP (COMPREHENSIVE METABOLIC PANEL) (02/11/2025 11:09 AM EQUIPMENT DRIVER) SODIUM 143 136 - 145 mmol/L 02/11/2025 11:35 AM EQUIPMENT DRIVER [facility] POTASSIUM 4.0 3.5 - 5.1 mmol/L 02/11/2025 11:35 AM [facility] CHLORIDE 107 98 - 107 mmol/L 02/11/2025 11:35 AM [facility] CO2, VENOUS 28 22 - 30 mmol/L 02/11/2025 11:35 AM [facility] ANION GAP 12.0 <18.0 mmol/L 02/11/2025 11:35 AM [facility] GLUCOSE 98 70 - 99 mg/dL 02/11/2025 11:35 AM [facility] BUN 13 10 - 20 mg/dL 02/11/2025 11:35 AM [facility] CREATININE, BLOOD 0.95 0.60 - 1.00 mg/dL 02/11/2025 11:35 AM [facility] BUN/CREATININE RATIO 14 12 - 20 ratio 02/11/2025 11:35 AM [facility] TOTAL PROTEIN 7.3 6.0 - 8.0 g/dL 02/11/2025 11:35 AM [facility] ALBUMIN 4.1 3.5 - 5.0 g/dL 02/11/2025 11:35 AM [facility] A/G RATIO 1.3 1.0 - 2.2 02/11/2025 11:35 AM [facility] CALCIUM 9.8 8.7 - 10.5 mg/dL 02/11/2025 11:35 AM [facility] T BILI 0.4 0.2 - 1.2 mg/dL 02/11/2025 11:35 AM [facility] SGOT (AST) 24 <43 U/L 02/11/2025 11:35 AM [facility] SGPT (ALT) 14 <56 U/L 02/11/2025 11:35 AM [facility] ALKALINE PHOSPHATASE 73 40 - 150 U/L 02/11/2025 11:35 AM [facility] IS THE PATIENT REQUIRED TO BE FASTING? No 02/11/2025 11:35 AM [facility] GFR, ESTIMATED >60 >=60 02/11/2025 11:35 AM [facility] Comment: Creatinine Clearance is the preferred criteria for selecting drug dose adjustments in renally impaired patients. The GFR is provided as additional pertinent clinical information. GFR is reported in mL/min/1.73 sq m. Calculation based on the 2020 Chronic Kidney Disease Epidemiology Collaboration (CKD-EPI) equation refit without adjustment for race. GFR, EST. >60 >=60 025 11:35 AM [facility] Comment: Creatinine Clearance is the preferred criteria for selecting drug dose adjustments in renally impaired patients. The GFR is provided as additional pertinent clinical information. GFR is reported in mL/min/1.73 sq m. Calculation based on the 2009 Chronic Kidney Disease Epidemiology Collaboration (CKD-EPI). GFR, EST. NONAFRICAN >60 >=60 02/11/2025 11:35 AM [facility] Comment: Creatinine Clearance is the preferred criteria for selecting drug dose adjustments in renally impaired patients. The GFR is provided as additional pertinent clinical information. GFR is reported in mL/min/1.73 sq m. Calculation based on the 2009 Chronic Kidney Disease Epidemiology Collaboration (CKD-EPI). Blood Venipuncture / Unknown 02/11/2025 11:09 AM EQUIPMENT DRIVER 02/11/2025 11:16 AM EQUIPMENT DRIVER us Clari Porter VASCULAR SURGEON, DIRECTOR FOOD SAFETY CHEMISTRY ORDERABLES Final Result [facility] [address] [place] [address] * POCT Glucose (11/22/2024 7:15 AM CDT) Pathologist [facility] GLUCOSE,BEDSIDE POCT 89 70 - 99 mg/dL 11/22/2024 7:16 AM CDT [facility] Blood 11/22/2024 7:15 AM CDT 11/22/2024 7:16 AM CDT us None Provider POINT OF CARE TESTING Final Resu lt Performing Organization Address City[facility] Co de Phone Number [facility] [address] [place] [address] * GI IMAGING - COLONOSCOPY (11/22/2024 6:29 AM CDT) us Julio C Suárez MD IMG DIAGNOSTIC ORDERABLES Final Result * Hemoglobin A1C w/ Estimated Glucose (05/21/2024 7:04 AM EQUIPMENT DRIVER) [facility] [address] HGB-A1C 5.6 4.0 - 6.0 % 05/21/2024 4:56 PM EQUIPMENT DRIVER [facility] Est Average Glucose 114.0 mg/dL 05/21/2024 4:56 PM EQUIPMENT DRIVER [facility] Blood Venipuncture / Unknown 05/21/2024 7:04 AM EQUIPMENT DRIVER 05/21/2024 7:13 AM EQUIPMENT DRIVER Narrative [facility] - 05/21/2024 4:56 PM EQUIPMENT DRIVER HEMOGLOBIN A1C: DIABETIC PATIENTS: WELL-CONTROLLED: 6.2 - 7.0 INTERMEDIATE WELL-CONTROLLED: 7.0 - 9.0 POORLY-CONTROLLED: >9.0 Specimens containing greater than 5% of Hemoglobin F may result in lower than expected % HbA1C results. us Antonio Benavidez MD CHEMISTRY ORDERABLES Final Res ult [facility] [address] [place] [address] from Last 3 Months or Most Recently Relevant to Health Maintenance Insurance [place] [address] Advance Directives * Full Code (Latest Code [...] measures to stabilize the patient. Care Teams Thermal Spray Operator Relationship Specialty Start Date End Date Spencer Cabrera [facility] [place] [address] PCP - General 11/24/20 Malcom Siegel MD [address] [place] [address] Consulting Physician Neurology 06/13/24 Clari Porter APRN, DIRECTOR FOOD SAFETY [address] [place] [address] Nurse Practitioner Advanced Practice Nurse 09/11/24 Ju Powell APRN, CHEERLEADING COACH [address] [place] [address] Nurse Practitioner Advanced Practice Nurse 11/08/24
--- OUTSIDE RECORDS SUMMARY | 2025-02-21 11:28 | XMS_ITS | Patient Health Record ---
Author Organization [facility] Address [address] [facility] [place] [phone] Support Name Relationship Address Phone Brett Faustin Guarantor Unknown Reason For Referral No Information Plan Of Treatment No Information Insurance Providers Payer Name Payer Address Payer Phone Subscriber Number Group Number Insured Name Patient Relationship to Insured Coverage Start Date Coverage End Date [employer] PPO E2 [address] [place] [address] [id number] Brett Faustin Spouse - patient is the spouse of the insured
--- NOTE | 2025-02-21 11:32 | ED_ITS ---
HPI - Extremity Injury (Lower) General Chief Complaint: Extremity Injury, Lower Stated Complaint: left ankle injury Time Seen by Provider: 02/21/25 11:35 Source: patient and RN notes reviewed Mode of arrival: ambulatory Limitations: no limitations History of Present Illness HPI Narrative: 34-year-old female presents with concern for left ankle and lateral foot pain. Reports 6 days ago she stepped in a hole. Reports she has been using compression, ice without relief. She denies decreased strength, sensation, range of motion MD complaint: ankle injury Related Data Home Medications ?Medication ?Instructions ?Recorded ?Confirmed ?Last Taken ?Type atorvastatin 80 mg tablet mg 05/19/23 Unknown History dulaglutide 1.5 mg/0.5 mL mg subcut 05/19/23 Unknown History subcutaneous pen injector (Trulicity) empagliflozin 25 mg tablet mg 05/19/23 05/19/23 Unknow n History (Jardiance) isosorbide mononitrate 120 mg mg PO 05/19/23 Unknown History tablet,extended release 24 hr losartan 25 mg tablet mg 05/19/23 Unknown History metoprolol succinate 50 mg mg PO 05/19/23 Unknown His tory tablet,extended release 24 hr oxybutynin chloride 10 mg mg PO 05/19/23 Unknown Hist ory tablet,extended release 24 hr ranolazine 500 mg tablet,extended mg PO 05/19/2305/19 Unknown History release,12 hr clopidogrel 75 mg tablet mg 10/09/24 Unknown History gabapentin 300 mg capsule mg 10/09/24 Unknown History solifenacin 10 mg tablet mg PO 10/09/24 Unknown Hist ory Allergies Allergy/AdvReac Type Severity Reaction Status Date / Time bee venom protein (honey bee) Allergy Intermediate Rash Verified 02/21/25 11:26 Penicillins Allergy Unknown Rash Verified 02/21/25 11:26 all diabetic meds AdvReac Intermediate Other Uncoded 05/19/23 15:29 Review of Systems Review of Systems: CONSTITUTIONAL: Denies malaise, chills, sweats, or fever. SKIN: Denies rash or itching, open skin, laceration, abrasion, redness, warmth, swelling. MUSCULOSKELETAL: Reports left ankle in foot pain NEUROLOGIC: Denies numbness, weakness All systems reviewed & are unremarkable except as noted in HPI and below PMFSH Past Medical History Medical History Diabetes Arthritis Breast cancer Brain cancer Elevated cholesterol Hypertension Urinary tract infection Surgical History Surgical History H/O: hysterectomy Social History Social History Smoking status: Never smoker Alcohol intake: current Alcohol use details: rare Substance use type: does not use Living arrangements: with family Gender identity (if verbalized by the patient): Female Comments At time of signature, agree with nursing past medical, surgical, social and family history. There is no relevant family history pertinent to the presenting complaint Exam Narrative: GENERAL: Well-appearing, well-nourished, and in no acute distress. HEAD: Normocephalic, atraumatic. EYES: PERRLA, conjunctivae clear NECK: Supple. CHEST: Speaks in full sentences. No respiratory distress. HEART: Regular rate and rhythm. Normal and equal peripheral pulses. EXTREMITIES: Left ankle, foot, digits have grossly normal strength and sensation, grossly normal range of motion. No edema or ecchymosis. 5/5 strength with ankle in digit flexion and extension. Normal sensation with sensitivity to light touch and pain. No point tenderness. No open wounds, no skin tenting, no devitalized tissue or atrophy, no trophic changes, no obvious deformity, alignment normal, nearby joints and structures intact. Distal pulses palpable and equal bilaterally, skin warm, dry, pink. Capillary refill less than 3 seconds. SKIN: Warm, dry, no rash. NEURO: Alert and oriented x3. PSYCH: Normal mood and affect Course Course Emergency Course: Patient is aware of diagnosis, understands and agrees to treatment plan. Anticipatory guidance given. Patient agrees to follow-up as directed and is aware of reasons to seek care at the emergency department. Portions of this record may have been created with voice recognition software Level of Care: Express Care Visit Vital Signs Vital signs: Reviewed. MDM - Extremity Injury (Lower) MDM Narrative Medical decision making narrative: The patient was evaluated by myself in the express care. History is obtained from patient who is an independent historian and physical exam was performed.? Available medical records were reviewed at this time. ? Exam findings show no acute concerns or changes; patient is non-toxic appearing and is in no distress. Patient is appropriate for outpatient treatment and follow-up. ? I have evaluated and discussed social determinants of health with the patient that could potentially impact subsequent diagnosis and treatment plans. ? Patients injury and pain is consistent with musculoskeletal etiology. No signs of neurological or vascular compromise on exam. Compartments and tissues are soft without signs of compartment syndrome. Pain is felt appropriate for further evaluation on an outpatient basis. Imaging Data My impression: Images reviewed, interpreted by radiologist, agree, see report. Radiologist's impression: EXAMINATION: XR foot LT min 3V DATE: 02/21/2025 11:49 INDICATION: Rolled ankle TECHNIQUE: Left foot x-ray were obtained. COMPARISON: None. FINDINGS: No displaced fracture dislocation. No suspicious radiopaque foreign body seen. Prominent spurring/enthesopathy at the Achilles tendon insertion and contrast of the calcaneus. IMPRESSION: 1. No displaced fracture lucency. EXAMINATION: XR ankle LT min 3V, 02/21/2025 11:40 ADMINISTRATIVE SERVICES SPECIALIST HISTORY: ROLLED ANKLE,GEN MEDIAL PAIN COMPARISON: No comparisons available. Findings: No acute fracture or malalignment. No significant degenerative changes. Soft tissues unremarkable. Impression: No acute fracture or malalignment. EXAMINATION: XR ankle LT min 3V, 02/21/2025 11:40 ADMINISTRATIVE SERVICES SPECIALIST HISTORY: ROLLED ANKLE,GEN MEDIAL PAIN COMPARISON: No comparisons available. Findings: No acute fracture or malalignment. No significant degenerative changes. Soft tissues unremarkable. Impression: No acute fracture or malalignment. Critical Care Time Critical Care Time Critical Care Time: No Discharge Plan Discharge Clinical Impression: Ankle sprain and strain Patient Disposition: Home Condition: Stable Instructions: Ankle Sprain (ED) Additional Instructions: Avoid activities that cause pain until the pain subsides. Ice to the area 20-30 minutes 4-6 times a day Elevate above heart Elastic wrap or orthopedic splint as directed for comfort for the next 5-7 days Tylenol for pain Follow up with your primary care provider if the condition is not improving within 1 week. If the condition worsens with numbness, tingling, decrease sensation with weakness seek treatment in the emergency room immediately. Patient Language: [place] Prescriptions: No Action atorvastatin 80 mg tablet oxybutynin chloride 10 mg tablet extended release 24hr PO metoprolol succinate 50 mg tablet extended release 24 hr PO isosorbide mononitrate 120 mg tablet extended release 24 hr PO losartan 25 mg tablet ranolazine 500 mg tablet extended release 12 hr PO Trulicity 1.5 mg/0.5 mL pen injector SUBCUT Jardiance 25 mg tablet Patient Comments: stated is not currently taking dt unable to afford cost. albuterol sulfate 90 mcg/actuation HFA aerosol inhaler 2 inh inhalation QID PRN (Reason: shortness of breath or wheezing) Qty: 8.5 0RF clopidogrel 75 mg tablet gabapentin 300 mg capsule solifenacin 10 mg tablet PO Follow-up/Referrals: Rick,Spencer Salcedo MD [Primary Care Provider] Time of Disposition: 12:09
[2025-02-21 11:33] VITALS: BP 107/65; PULSE 77; RESP 18; TEMP 36.9; O2SAT 97
== END 2025-02-21 12:32 | disposition home or self-care (01) ==
PROVIDERS: Emergency Provider Nurse Practitioner; PCP Family Medicine
DX: S93.402A Sprain of unspecified ligament of left ankle, initial encounter (principal); S96.912A Strain of unspecified muscle and tendon at ankle and foot level, left foot, initial encounter; W17.2XXA Fall into hole, initial encounter; E11.9 Type 2 diabetes mellitus without complications; Z79.84 Long term (current) use of oral hypoglycemic drugs; Z79.85 Long-term (current) use of injectable non-insulin antidiabetic drugs; I10 Essential (primary) hypertension; E78.00 Pure hypercholesterolemia, unspecified; M19.90 Unspecified osteoarthritis, unspecified site; Z85.3 Personal history of malignant neoplasm of breast; Z85.841 Personal history of malignant neoplasm of brain
CPT/HCPCS: 73610; 73630; 99213; G0463